=== PATIENT | female | born 1955 | race Two or more races ===

== ENCOUNTER 2018-01-24 11:59 | Inpatient (IN) | payer MEDICARE, OTHER ==
[~2018-01-24] VITALS: Ht 160 cm; Wt 71.3 kg
[2018-01-24 14:50] VITALS: BP 182/75
--- NOTE | 2018-01-24 15:31 | Cardiac Electrophysiology PN ---
Subjective Subjective [id number] Micah Young MD Jan 24, 2018 15:31
[2018-01-24] MEDS ORDERED: cloNIDine 0.2mg Tab ORAL PRN (19:15)
[2018-01-24 20:00] VITALS: BP 136/86
--- NOTE | 2018-01-24 20:30 | Consultation ---
DATE OF CONSULTATION: 01/24/2018 CARDIOLOGY CONSULTATION CONSULTING PHYSICIAN: Micah Young M.D. REFERRING PHYSICIAN: Darius Meyer M.D. REASON FOR CONSULTATION: Chest pain and shortness of breath. HISTORY OF PRESENT ILLNESS: The patient is a 62-year-old lady, who presented to [facility] for acute shortness of breath as well as hypertensive urgency. The patient underwent CT of the chest that showed no evidence of acute pulmonary embolism. The patient was noted to have a BNP of 1100. Troponin was mildly elevated at 0.06. Creatinine was also elevated at 7.15. EKG, however, showed normal sinus rhythm with normal electrocardiogram. REVIEW OF SYSTEMS: Review of systems was performed and was negative other than what was mentioned in the history of present illness. PAST MEDICAL HISTORY: Hypertension. FAMILY HISTORY: Noncontributory. SOCIAL HISTORY: She lives with the family, who are at the bedside. Does not smoke or drink alcohol. PHYSICAL EXAMINATION: VITAL SIGNS: Blood pressure 130/80, pulse 80, respirations 18, and she is afebrile. HEAD AND NECK: No JVD. LUNGS: Clear. CARDIOVASCULAR: Regular S1 and S2 with no gallop or murmur. ABDOMEN: Soft. EXTREMITIES: No pitting edema. Her blood pressure at [place] was 250/101. LABORATORY AND DIAGNOSTIC DATA: Her labs show white count of 9.1, hemoglobin 11.9, hematocrit 36, and platelet count 260,000. Sodium 134, potassium 5.3, creatinine 7.15, and BUN 58. ASSESSMENT/PLAN: 1. Accelerated hypertension with blood pressure of more than 200. I will start the patient on Norvasc 10 mg daily as well as metoprolol 25 mg b.i.d. I will add p.r.n. clonidine to her medical regimen. 2. Chest pain. The patient's EKG is negative. Troponin is mildly elevated. It could be due to the patient's renal failure. Chest CT showed no evidence of pulmonary embolism. 3. Renal failure, duration is unknown. Creatinine is 7.15. Nephrology evaluation is pending as well as renal ultrasound. 4. Congestive heart failure exacerbation, likely due to volume overload. The patient may need hemodialysis. Thank you very much, Dr. Meyer, for allowing me to participate in the care of this patient. Please do not hesitate to contact me for any questions regarding my evaluation. Micah Young M.D. DR: XENA JOB#: [id number] CC:
[2018-01-24] MEDS ORDERED: Acetaminophen 650 MG SUPP RECTAL PRN ×2 (22:00)
[2018-01-24] MEDS ORDERED: Miralax 17gm pkt ORAL PRN (22:00)
[2018-01-24] MEDS ORDERED: Nitroglycerin Subl 0.4mg tab SL PRN (22:00)
--- NOTE | 2018-01-24 22:01 | History & Physical ---
History and Physical History & Physicial Job: [id number] Darius Meyer MD Jan 24, 2018 22:01
[2018-01-24] MEDS ORDERED: NOVOLIN 70100 UNIT/2 SQ ×2 (22:09)
[2018-01-24] MEDS ORDERED: CARDIZEM60 MG ORAL (22:09)
[2018-01-24] MEDS ORDERED: CLARITIN10 M2 ORAL (22:09)
[2018-01-24] MEDS ORDERED: CARVEDILOL6.25 MG ORAL (22:09)
[2018-01-24] MEDS ORDERED: VITAMIN B COMP1 EAC5 PO (22:09)
[2018-01-24] MEDS ORDERED: CALCIUM ACETAT667 M1 PO (22:09)
[2018-01-24] MEDS ORDERED: FOLIC ACID1 MG ORAL (22:09)
[2018-01-24] MEDS ORDERED: ASPIRIN81 MG ORAL (22:09)
[2018-01-24] MEDS ORDERED: FUROSEMIDE80 M1 ORAL (22:09)
[2018-01-24] MEDS ORDERED: SIMVASTATIN20 MG ORAL (22:09)
[2018-01-24] MEDS: dilTIAZem HCl 60mg tab ORAL SCH (22:57)
[2018-01-24] MEDS: Carvedilol 6.25mg Tab ORAL SCH (22:57)
[2018-01-25] VITALS: BP 114/50
[2018-01-25 04:00] VITALS: BP 132/60
--- NOTE | 2018-01-25 04:01 | History and Physical Report ---
DATE OF ADMISSION: 01/24/2018 CHIEF COMPLAINT: Shortness of breath. HISTORY OF PRESENT ILLNESS: This is a 62-year-old very delightful female with past medical history significant for end-stage renal disease on hemodialysis, status post left upper extremity AV fistula placement, hypertension, diabetes type 2, diabetic nephropathy, and diabetic retinopathy, who presented to the hospital to [facility] emergency room complained about shortness of breath. She missed her dialysis yesterday. She is a dialysis dependent Sunday, Sunday, and Sunday. She started having shortness of breath. The patient was noted to have BNP of 1100 and troponin was mildly elevated with 0.06 and subsequently, the patient was transferred to [facility] for further evaluation. Open arrival to [place], the patient was started treating for the acute congestive heart failure on chronic with fluid overload and emergent dialysis was started as per request by Dr. Joel Vásquez. PAST MEDICAL HISTORY/PAST SURGICAL HISTORY: As above. History of hypertension, end-stage renal disease on hemodialysis, Sunday, Sunday, and Sunday; diabetes type 2; diabetic nephropathy; diabetic retinopathy. The patient has a history of gallstone as well. ALLERGIES: No known drug allergies. MEDICATIONS: Please refer to medication reconciliation. The patient is dependent. FAMILY HISTORY: Noncontributory. SOCIAL HISTORY: The patient denies any smoking, alcohol, or drugs. Very supportive family is always at bedside. REVIEW OF SYSTEMS: Mostly as above. Complained of shortness of breath. Denies any chest pain. Denies any loss of consciousness. Denies any fall or head trauma. Denies any double vision. The patient has right eye opacity and blindness. Left eye has retinopathy. PHYSICAL EXAMINATION: VITAL SIGNS: Upon arrival to [place], the patient afebrile, blood pressure 130/80, pulse of 80, and respirations 18. GENERAL: The patient is awake, responsive, in no acute distress. HEAD AND NECK: Pupils are reactive to light. Extraocular movements are intact. EYES: Right eye has opacity was noted. NECK: Supple. No JVD. LUNGS: Good air entry. No wheezing or rales. Occasional crackles at bases. ABDOMEN: Soft, nondistended, and nontender. Mildly obese. EXTREMITIES: No cyanosis or clubbing. No pitting edema. Left upper extremity has AV fistula functional. NEUROLOGIC: Cranial nerves II through XII grossly intact. Motor is 5/5 in all extremities. Gait is not assessed due to the patient's status. LABORATORY AND DIAGNOSTIC DATA: On admission from [place], lipase is 34, D-dimer is 1029. ALT of 13 and AST of 19. The patient's glucose was 190. Troponin 0.06, BNP of 1103, and creatinine is 7.15. WBC of 9.1, hemoglobin 11, hematocrit 36, and platelet is 260. Sodium 134, potassium 5.3, chloride 95, bicarbonate 25, BUN 58, creatinine is 7.15, total bilirubin of 0.9. CT of the chest, no CT evidence of acute pulmonary embolism ____ as well as right and left main pulmonary artery and ____ arterial branch, bilateral lung patchy airspace with a ground-glass opacity, which may indicate underlying atelectasis or infection, thickening of the interlobular space of the lungs. Chest x-ray showed pulmonary edema. EKG, normal sinus rhythm, ventricular rate of 81, no ST elevation was noted. ASSESSMENT: 1. Shortness of breath, most likely secondary to fluid overload. 2. End-stage renal disease, on hemodialysis. 3. Hypertension. 4. 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 5. Morbid obesity. PLAN: Admit the patient to monitored unit. We follow up with Dr. Young from Cardiology as well as Dr. Dr. Joel Vásquez from Nephrology. Continue laboratory in the morning. Discussed with the son extensively at the bedside. Code status is Full Code. DVT prophylaxis, heparin subcutaneous. We will resume home medications actually with sliding scale. Darius Meyer M.D. DR: CARLOS JOB#: [id number] CC:
[2018-01-25] MEDS: dilTIAZem HCl 60mg tab ORAL SCH ×3 (05:51→22:45)
[2018-01-25] MEDS: NovoLOG Insulin Flexpen SUBQ SCH ×4 (05:52→21:00)
[2018-01-25 07:20] LABS: ANION GAP 7 mmol/L (5-15); BASOPHILS % (AUTO) 1.5 % (0.0-2.0); BLOOD UREA NITROGEN 37 mg/dL (7-18); CALCIUM 8.7 MG/DL (8.5-10.1); CARBON DIOXIDE 30 MMOL/L (21-32); CHLORIDE 99 MMOL/L (98-107); CHOLESTEROL 120 MG/DL (< 200); CREATININE 5.7 MG/DL (0.55-1.30); EOSINOPHILS % (AUTO) 2.1 % (0.0-3.0); HEMATOCRIT 34.3 % (37.0-47.0); HEMOGLOBIN 11.1 G/DL (12.0-16.0); LYMPHOCYTES % (AUTO) 23.9 % (20.0-45.0); MEAN CORPUSCULAR VOLUME 90 FL (80-99); MONOCYTES % (AUTO) 11.3 % (1.0-10.0); NEUTROPHILS % (AUTO) 61.3 % (45.0-75.0); PLATELET COUNT 227 K/UL (150-450); POTASSIUM 4.4 MMOL/L (3.5-5.1); RED BLOOD COUNT 3.82 M/UL (4.20-5.40); RED CELL DISTRIBUTION WIDTH 12.3 % (11.6-14.8); SODIUM 136 MMOL/L (136-145); WHITE BLOOD COUNT 8.1 K/UL (4.8-10.8)
[2018-01-25 07:47] LABS: PHOSPHORUS 5.3 MG/DL (2.5-4.9)
[2018-01-25 08:00] VITALS: BP 139/60
[2018-01-25] MEDS: Aspirin Baby 81mg ORAL SCH (09:53)
[2018-01-25] MEDS: Docusate 100mg cap ORAL SCH ×2 (09:53→22:43)
[2018-01-25] MEDS: Carvedilol 6.25mg Tab ORAL SCH ×2 (09:54→22:44)
[2018-01-25] MEDS: Heparin 5000 units/ml inj SUBQ SCH ×2 (09:56→22:51)
[2018-01-25 12:00] VITALS: BP 132/60
--- NOTE | 2018-01-25 12:13 | Consultation ---
Consult Note Assessment/Plan Renal consult dictated # [id number] Joel Vásquez MD Jan 25, 2018 12:13
--- NOTE | 2018-01-25 12:14 | Cardiac Electrophysiology PN ---
Assessment/Plan Assessment/Plan 1. Accelerated hypertension with blood pressure of more than 200. On Cardizem 60 q8hr and Coreg 6.25 bid. 2. Chest pain. The patient's EKG is negative. Troponin is mildly elevated. It could be due to the patient's renal failure. Chest CT showed no evidence of pulmonary embolism.EF 55% 3. Chronic Renal failure, Had 3 liters removed with HD yesterday 4. Congestive heart failure exacerbation EF 55% on HD\ 5. Low glucose DW RN Subjective Subjective Altered. In SR. BS is critically Low. Objective Last 24 Hour Vital Signs Date Time Temp Pulse Resp B/P (MAP) Pulse Ox O2 Delivery O2 Flow Rate FiO2 01/25/18 09:54 76 139/60 01/25/18 09:00 Nasal Cannula 2.0 01/25/18 08:00 99.1 76 18 139/60 (86) 97 01/25/18 08:00 65 01/25/18 05:51 70 132/60 01/25/18 04:00 97.9 65 18 132/60 (84) 98 01/25/18 04:00 65 01/25/18 00:00 98.0 70 20 114/50 (71) 98 01/24/18 22:57 76 142/65 01/24/18 22:57 76 142/65 01/24/18 21:00 Nasal Cannula 2.0 01/24/18 20:00 85 01/24/18 20:00 98.4 84 22 136/86 (103) 97 01/24/18 16:12 82 01/24/18 15:30 Nasal Cannula 2.0 01/24/18 14:50 97.9 20 182/75 (110) 96 Intake and Output 01/24/18 01/25/18 19:00 07:00 Intake Total 240 ml Output Total 6000 ml Balance -5760 ml Intake Oral 240 ml Output Hemodialysis UF 6000 ml # Voids 1 1 Laboratory Tests Test 01/25/18 06:25 White Blood Count 8.1 K/UL (4.8-10.8) Red Blood Count 3.82 M/UL (4.20-5.40) L Hemoglobin 11.1 G/DL (12.0-16.0) L Hematocrit 34.3 % (37.0-47.0) L Mean Corpuscular Volume 90 FL (80-99) Mean Corpuscular Hemoglobin 29.0 PG (27.0-31.0) Mean Corpuscular Hemoglobin Concent 32.3 G/DL (32.0-36.0) Red Cell Distribution Width 12.3 % (11.6-14.8) Platelet Count 227 K/UL (150-450) Mean Platelet Volume 6.9 FL (6.5-10.1) Neutrophils (%) (Auto) 61.3 % (45.0-75.0) Lymphocytes (%) (Auto) 23.9 % (20.0-45.0) Monocytes (%) (Auto) 11.3 % (1.0-10.0) H Eosinophils (%) (Auto) 2.1 % (0.0-3.0) Basophils (%) (Auto) 1.5 % (0.0-2.0) Sodium Level 136 MMOL/L (136-145) Potassium Level 4.4 MMOL/L (3.5-5.1) Chloride Level 99 MMOL/L (98-107) Carbon Dioxide Level 30 MMOL/L (21-32) Anion Gap 7 mmol/L (5-15) Blood Urea Nitrogen 37 mg/dL (7-18) H Creatinine 5.7 MG/DL (0.55-1.30) H Estimat Glomerular Filtration Rate 7.5 mL/min (>60) Glucose Level 128 MG/DL (74-106) H Calcium Level 8.7 MG/DL (8.5-10.1) Phosphorus Level 5.3 MG/DL (2.5-4.9) H Magnesium Level 1.9 MG/DL (1.8-2.4) Troponin I 0.261 ng/mL (0.000-0.056) Pro-B-Type Natriuretic Peptide 84012 pg/mL (0-125) H Cholesterol Level 120 MG/DL (< 200) Microbiology Date/Time Source Procedure Growth Status 01/24/18 19:07 Rectum Received Objective HEAD AND NECK: No JVD. LUNGS: Clear. CARDIOVASCULAR: Regular S1 and S2 with no gallop or murmur. ABDOMEN: Soft. EXTREMITIES: No pitting edema. Micah Young MD Jan 25, 2018 12:14
[2018-01-25] MEDS: Nephrovite tab (Rena-Vite) ORAL SCH (12:20)
[2018-01-25] MEDS ORDERED: Heparin Sod 1000 units/ml 10ml IV PRN (12:21)
--- NOTE | 2018-01-25 13:58 | Consultation ---
History of Present Illness General Date patient seen: Jan 25, 2018 Present Illness HPI 62-year-old female with past medical history significant for anxiety d/o, depression. end-stage renal disease on hemodialysis, status post left upper extremity AV fistula placement, hypertension, diabetes type 2, diabetic nephropathy, and diabetic retinopathy, who presented to the hospital to [facility]. the pt has anxiety and insomnia. Allergies: Coded Allergies: No Known Allergies (Unverified , 01/24/18) Medication History Scheduled Aspirin* (Aspirin*), 81 MG ORAL DAILY, (Reported) Carvedilol* (Carvedilol*), 6.25 MG ORAL EVERY 12 HOURS, (Reported) Diltiazem Hcl* (Cardizem*), 60 MG ORAL DAILY, (Reported) Folic Acid* (Folic Acid*), 1 MG ORAL DAILY, (Reported) Furosemide* (Lasix*), 80 MG ORAL DAILY, (Reported) Insulin NPH Hum/Reg Insulin Hm (Novolin 70-30 Flexpen), 18 UNIT SQ DAILY, ( Reported) Insulin NPH Hum/Reg Insulin Hm (Novolin 70-30 Flexpen), 10 UNIT SQ QHS, ( Reported) Loratadine (Claritin), 10 MG ORAL DAILY, (Reported) Simvastatin (Zocor), 20 MG ORAL BEDTIME, (Reported) Miscellaneous Medications Calcium Acetate (Calcium Acetate), 667 MG PO, (Reported) Vitamin B Complex (Vitamin B Complex), 1 EACH PO, (Reported) Patient History Limited by: medical condition History Provided By: Patient, PMD Healthcare decision maker N Resuscitation status Full Code Advanced Directive on File Past Medical/Surgical History Past Medical/Surgical History: (1) ESRD (end stage renal disease) on dialysis (2) Hypertension Review of Systems Psychiatric: Reports: anxiety, depressed feelings Physical Exam General Appearance: alert Neurologic: oriented x 3, responsive, depressed affect Last 24 Hour Vital Signs Date Time Temp Pulse Resp B/P (MAP) Pulse Ox O2 Delivery O2 Flow Rate FiO2 01/25/18 12:00 98.5 72 18 132/60 (84) 97 01/25/18 09:54 76 139/60 01/25/18 09:00 Nasal Cannula 2.0 01/25/18 08:00 99.1 76 18 139/60 (86) 97 01/25/18 08:00 65 12/14/18 05:51 70 132/60 12/14/18 04:00 97.9 65 18 132/60 (84) 98 01/25/18 04:00 65 01/25/18 00:00 98.0 70 20 114/50 (71) 98 01/24/18 22:57 76 142/65 01/24/18 22:57 76 142/65 01/24/18 21:00 Nasal Cannula 2.0 01/24/18 20:00 85 01/24/18 20:00 98.4 84 22 136/86 (103) 97 01/24/18 16:12 82 01/24/18 15:30 Nasal Cannula 2.0 01/24/18 14:50 97.9 20 182/75 (110) 96 Intake and Output 01/24/18 01/25/18 19:00 07:00 Intake Total 240 ml Output Total 6000 ml Balance -5760 ml Intake Oral 240 ml Output Hemodialysis UF 6000 ml # Voids 1 1 Laboratory Tests Test 01/25/18 06:25 01/25/18 12:20 White Blood Count 8.1 K/UL (4.8-10.8) Red Blood Count 3.82 M/UL (4.20-5.40) L Hemoglobin 11.1 G/DL (12.0-16.0) L Hematocrit 34.3 % (37.0-47.0) L Mean Corpuscular Volume 90 FL (80-99) Mean Corpuscular Hemoglobin 29.0 PG (27.0-31.0) Mean Corpuscular Hemoglobin Concent 32.3 G/DL (32.0-36.0) Red Cell Distribution Width 12.3 % (11.6-14.8) Platelet Count 227 K/UL (150-450) Mean Platelet Volume 6.9 FL (6.5-10.1) Neutrophils (%) (Auto) 61.3 % (45.0-75.0) Lymphocytes (%) (Auto) 23.9 % (20.0-45.0) Monocytes (%) (Auto) 11.3 % (1.0-10.0) H Eosinophils (%) (Auto) 2.1 % (0.0-3.0) Basophils (%) (Auto) 1.5 % (0.0-2.0) Sodium Level 136 MMOL/L (136-145) Potassium Level 4.4 MMOL/L (3.5-5.1) Chloride Level 99 MMOL/L (98-107) Carbon Dioxide Level 30 MMOL/L (21-32) Anion Gap 7 mmol/L (5-15) Blood Urea Nitrogen 37 mg/dL (7-18) H Creatinine 5.7 MG/DL (0.55-1.30) H Estimat Glomerular Filtration Rate 7.5 mL/min (>60) Glucose Level 128 MG/DL (74-106) H 226 MG/DL (74-106) H Calcium Level 8.7 MG/DL (8.5-10.1) Phosphorus Level 5.3 MG/DL (2.5-4.9) H Magnesium Level 1.9 MG/DL (1.8-2.4) Troponin I 0.261 ng/mL (0.000-0.056) Pro-B-Type Natriuretic Peptide 33744 pg/mL (0-125) H Cholesterol Level 120 MG/DL (< 200) Microbiology Date/Time Source Procedure Growth Status 01/24/18 19:07 Rectum Received Height (Feet): 5 Height (Inches): 3.00 Weight (Pounds): 160 Medications Current Medications Medications (Trade) Dose Ordered Sig/Jose Route PRN Reason Start Time Stop Time Status Last Admin Dose Admin Acetaminophen (Tylenol) 650 mg Q4H PRN ORAL Mild Pain (Pain Scale 1-3) 01/24/18 22:00 02/23/18 21:59 Acetaminophen (Tylenol) 650 mg Q4H PRN ORAL fever 01/24/18 22:00 02/23/18 21:59 Acetaminophen (Tylenol) 650 mg Q4H PRN RECTAL Mild Pain (Pain Scale 1-3) 01/24/18 22:00 02/23/18 21:59 Acetaminophen (Tylenol) 650 mg Q4H PRN RECTAL fever 01/24/18 22:00 02/23/18 21:59 Acetaminophen (Tylenol) 650 mg Q6H PRN ORAL Mild Pain/Temp > 100.5 01/24/18 21:30 02/23/18 21:29 01/25/18 05:56 Aspirin (ASA) 81 mg DAILY ORAL 01/25/18 09:00 02/24/18 08:59 01/25/18 09:53 Atorvastatin Calcium (Lipitor) 80 mg BEDTIME ORAL 01/25/18 21:00 02/24/18 20:59 Carvedilol (Coreg) 6.25 mg EVERY 12 HOURS ORAL 01/24/18 21:00 02/23/18 20:59 01/25/18 09:54 Clonidine HCl (Catapres tab) 0.2 mg Q2H PRN ORAL For High Blood Pressure 01/24/18 19:15 02/23/18 19:14 Dextrose (Dextrose 50%) 25 ml Q30M PRN IV Hypoglycemia 01/24/18 22:00 02/23/18 21:59 Dextrose (Dextrose 50%) 50 ml Q30M PRN IV Hypoglycemia 01/24/18 22:00 02/23/18 21:59 01/25/18 12:12 Diltiazem HCl (Cardizem) 60 mg EVERY 8 HOURS ORAL 01/24/18 22:00 02/23/18 21:59 01/25/18 05:51 Docusate Sodium (Colace) 100 mg EVERY 12 HOURS ORAL 01/25/18 09:00 02/24/18 08:59 01/25/18 09:53 Heparin Sodium (Porcine) (Heparin 5000 units/ml) 5,000 units EVERY 12 HOURS SUBQ 01/25/18 09:00 02/24/18 08:59 01/25/18 09:56 Heparin Sodium (Porcine) (Heparin Sod 1000 units/ml 10ml) 2,000 unit ONCE PRN IV DIALYSIS 01/25/18 12:21 01/26/18 23:59 Insulin Aspart (NovoLOG Mix 70/ 30) 15 units EVERY 12 HOURS SUBQ 01/25/18 09:00 02/24/18 08:59 01/25/18 09:55 Insulin Aspart (NovoLOG) BEFORE MEALS AND HS SUBQ 01/25/18 06:30 02/24/18 06:29 01/25/18 05:52 Nitroglycerin (Ntg) 0.4 mg Q5M PRN SL Prn Chest Pain 01/24/18 22:00 02/23/18 21:59 Ondansetron HCl (Zofran) 4 mg Q6H PRN IVP Nausea & Vomiting 01/24/18 22:00 02/23/18 21:59 Polyethylene Glycol (Miralax) 17 gm DAILYPRN PRN ORAL Constipation 01/24/18 22:00 02/23/18 21:59 Sodium Chloride 1,000 ml @ 500 mls/hr Q2H PRN IVLG sbp<90 during hd 01/25/18 12:20 01/26/18 23:59 Vitamin B Complex/ Vit C/Folic Acid (Nephrovite) 1 tab DAILY ORAL 01/25/18 12:20 02/24/18 12:19 Assessment/Plan Problem List: (1) anxiety d/o Status: stable Assessment/Plan Anxiety d/o ativan prn provided ro/Seth Ocampo MD Jan 25, 2018 13:58
[2018-01-25] MEDS ORDERED: LORazepam 1mg tab ORAL PRN (14:00)
--- NOTE | 2018-01-25 14:00 | Consultation ---
History of Present Illness General Date patient seen: Jan 25, 2018 Present Illness HPI 62-year-old female with past medical history of end-stage renal disease on hemodialysis, hypertension, diabetes type 2, diabetic nephropathy, and diabetic retinopathy, presented to [facility] emergency room with CC of shortness of breath. She missed her dialysis yesterday. The patient was noted to have BNP of 1100 and troponin was mildly elevated with 0.06. she was transferred to [facility] for further evaluation. Allergies: Coded Allergies: No Known Allergies (Unverified , 01/24/18) Medication History Scheduled Aspirin* (Aspirin*), 81 MG ORAL DAILY, (Reported) Carvedilol* (Carvedilol*), 6.25 MG ORAL EVERY 12 HOURS, (Reported) Diltiazem Hcl* (Cardizem*), 60 MG ORAL DAILY, (Reported) Folic Acid* (Folic Acid*), 1 MG ORAL DAILY, (Reported) Furosemide* (Lasix*), 80 MG ORAL DAILY, (Reported) Insulin NPH Hum/Reg Insulin Hm (Novolin 70-30 Flexpen), 18 UNIT SQ DAILY, ( Reported) Insulin NPH Hum/Reg Insulin Hm (Novolin 70-30 Flexpen), 10 UNIT SQ QHS, ( Reported) Loratadine (Claritin), 10 MG ORAL DAILY, (Reported) Simvastatin (Zocor), 20 MG ORAL BEDTIME, (Reported) Miscellaneous Medications Calcium Acetate (Calcium Acetate), 667 MG PO, (Reported) Vitamin B Complex (Vitamin B Complex), 1 EACH PO, (Reported) Patient History Healthcare decision maker N Resuscitation status Full Code Advanced Directive on File Past Medical/Surgical History Past Medical/Surgical History: (1) ESRD (end stage renal disease) on dialysis (2) Hypertension Review of Systems All Other Systems: negative except mentioned in HPI Physical Exam General Appearance: WD/WN Lines, tubes and drains: peripheral, central line HEENT: normocephalic, atraumatic Neck: non-tender, supple Respiratory/Chest: chest wall non-tender, no respiratory distress Cardiovascular/Chest: normal peripheral pulses Abdomen: normal bowel sounds Last 24 Hour Vital Signs Date Time Temp Pulse Resp B/P (MAP) Pulse Ox O2 Delivery O2 Flow Rate FiO2 01/25/18 12:00 98.5 72 18 132/60 (84) 97 01/25/18 09:54 76 139/60 12/14/18 09:00 Nasal Cannula 2.0 01/25/18 08:00 99.1 76 18 139/60 (86) 97 01/25/18 08:00 65 01/25/18 05:51 70 132/60 01/25/18 04:00 97.9 65 18 132/60 (84) 98 01/25/18 04:00 65 01/25/18 00:00 98.0 70 20 114/50 (71) 98 01/24/18 22:57 76 142/65 01/24/18 22:57 76 142/65 01/24/18 21:00 Nasal Cannula 2.0 01/24/18 20:00 85 01/24/18 20:00 98.4 84 22 136/86 (103) 97 01/24/18 16:12 82 01/24/18 15:30 Nasal Cannula 2.0 01/24/18 14:50 97.9 20 182/75 (110) 96 Intake and Output 01/24/18 01/25/18 19:00 07:00 Intake Total 240 ml Output Total 6000 ml Balance -5760 ml Intake Oral 240 ml Output Hemodialysis UF 6000 ml # Voids 1 1 Laboratory Tests Test 01/25/18 06:25 01/25/18 12:20 White Blood Count 8.1 K/UL (4.8-10.8) Red Blood Count 3.82 M/UL (4.20-5.40) L Hemoglobin 11.1 G/DL (12.0-16.0) L Hematocrit 34.3 % (37.0-47.0) L Mean Corpuscular Volume 90 FL (80-99) Mean Corpuscular Hemoglobin 29.0 PG (27.0-31.0) Mean Corpuscular Hemoglobin Concent 32.3 G/DL (32.0-36.0) Red Cell Distribution Width 12.3 % (11.6-14.8) Platelet Count 227 K/UL (150-450) Mean Platelet Volume 6.9 FL (6.5-10.1) Neutrophils (%) (Auto) 61.3 % (45.0-75.0) Lymphocytes (%) (Auto) 23.9 % (20.0-45.0) Monocytes (%) (Auto) 11.3 % (1.0-10.0) H Eosinophils (%) (Auto) 2.1 % (0.0-3.0) Basophils (%) (Auto) 1.5 % (0.0-2.0) Sodium Level 136 MMOL/L (136-145) Potassium Level 4.4 MMOL/L (3.5-5.1) Chloride Level 99 MMOL/L (98-107) Carbon Dioxide Level 30 MMOL/L (21-32) Anion Gap 7 mmol/L (5-15) Blood Urea Nitrogen 37 mg/dL (7-18) H Creatinine 5.7 MG/DL (0.55-1.30) H Estimat Glomerular Filtration Rate 7.5 mL/min (>60) Glucose Level 128 MG/DL (74-106) H 226 MG/DL (74-106) H Calcium Level 8.7 MG/DL (8.5-10.1) Phosphorus Level 5.3 MG/DL (2.5-4.9) H Magnesium Level 1.9 MG/DL (1.8-2.4) Troponin I 0.261 ng/mL (0.000-0.056) Pro-B-Type Natriuretic Peptide 82385 pg/mL (0-125) H Cholesterol Level 120 MG/DL (< 200) Microbiology Date/Time Source Procedure Growth Status 01/24/18 19:07 Rectum Received Height (Feet): 5 Height (Inches): 3.00 Weight (Pounds): 160 Medications Current Medications Medications (Trade) Dose Ordered Sig/Jose Route PRN Reason Start Time Stop Time Status Last Admin Dose Admin Acetaminophen (Tylenol) 650 mg Q4H PRN ORAL Mild Pain (Pain Scale 1-3) 01/24/18 22:00 02/23/18 21:59 Acetaminophen (Tylenol) 650 mg Q4H PRN ORAL fever 01/24/18 22:00 02/23/18 21:59 Acetaminophen (Tylenol) 650 mg Q4H PRN RECTAL Mild Pain (Pain Scale 1-3) 01/24/18 22:00 02/23/18 21:59 Acetaminophen (Tylenol) 650 mg Q4H PRN RECTAL fever 01/24/18 22:00 02/23/18 21:59 Acetaminophen (Tylenol) 650 mg Q6H PRN ORAL Mild Pain/Temp > 100.5 01/24/18:30 02/23/18 21:29 01/25/18 05:56 Aspirin (ASA) 81 mg DAILY ORAL 01/25/18 09:00 02/24/18 08:59 01/25/18 09:53 Atorvastatin Calcium (Lipitor) 80 mg BEDTIME ORAL 01/25/18 21:00 02/24/18 20:59 Carvedilol (Coreg) 6.25 mg EVERY 12 HOURS ORAL 01/24/18 21:00 02/23/18 20:59 01/25/18 09:54 Clonidine HCl (Catapres tab) 0.2 mg Q2H PRN ORAL For High Blood Pressure 01/24/18 19:15 02/23/18 19:14 Dextrose (Dextrose 50%) 25 ml Q30M PRN IV Hypoglycemia 01/24/18 22:00 02/23/18 21:59 Dextrose (Dextrose 50%) 50 ml Q30M PRN IV Hypoglycemia 01/24/18 22:00 02/23/18 21:59 01/25/18 12:12 Diltiazem HCl (Cardizem) 60 mg EVERY 8 HOURS ORAL 01/24/18 22:00 02/23/18 21:59 01/25/18 05:51 Docusate Sodium (Colace) 100 mg EVERY 12 HOURS ORAL 01/25/18 09:00 02/24/18 08:59 01/25/18 09:53 Heparin Sodium (Porcine) (Heparin 5000 units/ml) 5,000 units EVERY 12 HOURS SUBQ 01/25/18 09:00 02/24/18 08:59 01/25/18 09:56 Heparin Sodium (Porcine) (Heparin Sod 1000 units/ml 10ml) 2,000 unit ONCE PRN IV DIALYSIS 01/25/18 12:21 01/26/18 23:59 Insulin Aspart (NovoLOG Mix 70/ 30) 15 units EVERY 12 HOURS SUBQ 01/25/18 09:00 02/24/18 08:59 01/25/18 09:55 Insulin Aspart (NovoLOG) BEFORE MEALS AND HS SUBQ 01/25/18 06:30 02/24/18 06:29 01/25/18 05:52 Nitroglycerin (Ntg) 0.4 mg Q5M PRN SL Prn Chest Pain 01/24/18 22:00 02/23/18 21:59 Ondansetron HCl (Zofran) 4 mg Q6H PRN IVP Nausea & Vomiting 01/24/18 22:00 02/23/18 21:59 Polyethylene Glycol (Miralax) 17 gm DAILYPRN PRN ORAL Constipation 01/24/18 22:00 02/23/18 21:59 Sodium Chloride 1,000 ml @ 500 mls/hr Q2H PRN IVLG sbp<90 during hd 01/25/18 12:20 01/26/18 23:59 Vitamin B Complex/ Vit C/Folic Acid (Nephrovite) 1 tab DAILY ORAL 01/25/18 12:20 02/24/18 12:19 Assessment/Plan Problem List: (1) Acute respiratory failure ICD Codes: J96.00 - Acute respiratory failure, unspecified whether with hypoxia or hypercapnia SNOMED: 03627711 (2) Pulmonary edema ICD Codes: J81.1 - Chronic pulmonary edema SNOMED: 07314031 (3) Hypertension ICD Codes: I10 - Essential (primary) hypertension SNOMED: 00586797 (4) ESRD (end stage renal disease) on dialysis ICD Codes: N18.6 - End stage renal disease; Z99.2 - Dependence on renal dialysis SNOMED: 177812764 Assessment/Plan CXR dialysis by nephrology check electrolytes diabetic diet and sliding scale fluid restriction dvt prophylaxis symptomatic treatment. Scotty Cohen MD Jan 25, 2018 14:00
--- NOTE | 2018-01-25 14:42 | Diagnostic Imaging Report ---
Indication: Dyspnea Comparison: None A single view chest radiograph was obtained. Findings: Some vascular prominence demonstrated bilaterally. The hazy opacities at the lung bases likely atelectasis. Lung volumes are low. Heart is borderline enlarged. Bones are osteopenic. Left axillary region stent noted. IMPRESSION: Mild pulmonary vascular congestion. Correlate clinically
[2018-01-25 15:35] LABS: EOSINOPHILS % (AUTO) 2.4 % (0.0-3.0); HEMATOCRIT 34.8 % (37.0-47.0); HEMOGLOBIN 11.4 G/DL (12.0-16.0); MEAN CORPUSCULAR VOLUME 89 FL (80-99); MONOCYTES % (AUTO) 9.9 % (1.0-10.0); NEUTROPHILS % (AUTO) 66.7 % (45.0-75.0); PLATELET COUNT 242 K/UL (150-450); RED BLOOD COUNT 3.89 M/UL (4.20-5.40); RED CELL DISTRIBUTION WIDTH 12.1 % (11.6-14.8)
--- NOTE | 2018-01-25 15:38 | Cardiology Report ---
APPROVED REPORT EXAM: Two-dimensional and M-mode echocardiogram with Doppler and color Doppler. INDICATION Congestive Heart Failure M-Mode DIMENSIONS IVSd1.1 (0.7-1.1cm)Left Atrium (MM)4.6 (1.6-4.0cm) LVDd5.2 (3.5-5.6cm)Aortic Root2.9 (2.0-3.7cm) PWd1.9 (0.7-1.1cm)Aortic Cusp Exc.1.3 (1.5-2.0cm) LVDs3.8 (2.5-4.0cm) PWs1.3 cm Normal left ventricular chamber size, systolic function and wall motion. Left ventricular ejection fraction estimated to be 50-55 %. Mild left ventricular hypertrophy by 2-D. Anterior Echo-free space, may be due to pericardial fat or effusion. All other cardiac chamber sizes are within normal limits. Echogenic material noted in Right Ventricle may be calcification of Moderate Band. Aortic valve moderate calcification with decreased cusp excursion c/w mild aortic stenosis. Heavily thickened mitral valve leaflets with mildly reduced excursion. Echogenic material noted on posterior Mitral leaflet may be calcification. Mitral annulus and aortic root calcification. Pulmonic valve not well visualized. Normal tricuspid valve structure. IVC at normal size with physiologic collapse. A color flow and spectral Doppler study was performed and revealed: Peak aortic valve gradient of 21 mm Hg and a mean of 12 mmHg. Aortic valve area 1.5 cm2 calculated by continuity equation. Mild mitral regurgitation. Peak mitral valve gradient of 15 mm Hg and a mean of 5 mmHg. Mitral diastolic velocities suggest reduced left ventricular relaxation c/w mild LV diastolic dysfunction (Grade I). Trace to mild tricuspid regurgitation. Tricuspid systolic velocities suggests peak right ventricular systolic pressure of 33 mmHg. Trace pulmonic regurgitation present.
[2018-01-25 16:00] VITALS: BP 147/68
[2018-01-25 16:01] LABS: ANION GAP 8 mmol/L (5-15); BLOOD UREA NITROGEN 42 mg/dL (7-18); CALCIUM 8.7 MG/DL (8.5-10.1); CARBON DIOXIDE 29 MMOL/L (21-32); CHLORIDE 98 MMOL/L (98-107); CREATININE 6.2 MG/DL (0.55-1.30); POTASSIUM 4.8 MMOL/L (3.5-5.1); SODIUM 135 MMOL/L (136-145)
--- NOTE | 2018-01-25 16:44 | Internal Med Progress Note ---
Subjective Physician Name Darius Meyer Attending Physician Darius Meyer MD Current Medications Medications (Trade) Dose Ordered Sig/Jose Route PRN Reason Start Time Stop Time Status Last Admin Dose Admin Acetaminophen (Tylenol) 650 mg Q4H PRN ORAL Mild Pain (Pain Scale 1-3) 01/24/18 22:00 02/23/18 21:59 Acetaminophen (Tylenol) 650 mg Q4H PRN ORAL fever 01/24/18 22:00 02/23/18 21:59 Acetaminophen (Tylenol) 650 mg Q4H PRN RECTAL Mild Pain (Pain Scale 1-3) 01/24/18 22:00 02/23/18 21:59 Acetaminophen (Tylenol) 650 mg Q4H PRN RECTAL fever 01/24/18 22:00 02/23/18 21:59 Acetaminophen (Tylenol) 650 mg Q6H PRN ORAL Mild Pain/Temp > 100.5 01/24/18 21:30 02/23/18 21:29 01/25/18 05:56 Aspirin (ASA) 81 mg DAILY ORAL 01/25/18 09:00 02/24/18 08:59 01/25/18 09:53 Atorvastatin Calcium (Lipitor) 80 mg BEDTIME ORAL 01/25/18 21:00 02/24/18 20:59 Carvedilol (Coreg) 6.25 mg EVERY 12 HOURS ORAL 01/24/18 21:00 02/23/18 20:59 01/25/18 09:54 Clonidine HCl (Catapres tab) 0.2 mg Q2H PRN ORAL For High Blood Pressure 01/24/18 19:15 02/23/18 19:14 Dextrose (Dextrose 50%) 25 ml Q30M PRN IV Hypoglycemia 01/24/18 22:00 02/23/18 21:59 Dextrose (Dextrose 50%) 50 ml Q30M PRN IV Hypoglycemia 01/24/18 22:00 02/23/18 21:59 01/25/18 12:12 Diltiazem HCl (Cardizem) 60 mg EVERY 8 HOURS ORAL 01/24/18 22:00 02/23/18 21:59 01/25/18 14:41 Docusate Sodium (Colace) 100 mg EVERY 12 HOURS ORAL 01/25/18 09:00 02/24/18 08:59 01/25/18 09:53 Heparin Sodium (Porcine) (Heparin 5000 units/ml) 5,000 units EVERY 12 HOURS SUBQ 01/25/18 09:00 02/24/18 08:59 01/25/18 09:56 Heparin Sodium (Porcine) (Heparin Sod 1000 units/ml 10ml) 2,000 unit ONCE PRN IV DIALYSIS 01/25/18 12:21 01/26/18 23:59 Insulin Aspart (NovoLOG) BEFORE MEALS AND HS SUBQ 01/25/18 06:30 02/24/18 06:29 01/25/18 05:52 Lorazepam (Ativan) 2 mg Q6H PRN ORAL For Anxiety 01/25/18 14:00 02/01/18 13:59 Nitroglycerin (Ntg) 0.4 mg Q5M PRN SL Prn Chest Pain 01/24/18 22:00 02/23/18 21:59 Ondansetron HCl (Zofran) 4 mg Q6H PRN IVP Nausea & Vomiting 01/24/18 22:00 02/23/18 21:59 Polyethylene Glycol (Miralax) 17 gm DAILYPRN PRN ORAL Constipation 01/24/18 22:00 02/23/18 21:59 Sodium Chloride 1,000 ml @ 500 mls/hr Q2H PRN IVLG sbp<90 during hd 01/25/18 12:20 01/26/18 23:59 Vitamin B Complex/ Vit C/Folic Acid (Nephrovite) 1 tab DAILY ORAL 01/25/18 12:20 02/24/18 12:19 Allergies: Coded Allergies: No Known Allergies (Unverified , 01/24/18) Subjective awake, alert, responsive, ambulation in Rm with son, No CP, Less SOB, Dialysis last night remove 3 liter Objective Last Vital Signs Date Time Temp Pulse Resp B/P (MAP) Pulse Ox O2 Delivery O2 Flow Rate FiO2 01/25/18 14:41 60 151/70 01/25/18 12:00 98.5 18 97 01/25/18 09:00 Nasal Cannula 2.0 Laboratory Tests Test 01/25/18 06:25 01/25/18 12:20 01/25/18 15:20 White Blood Count 8.1 K/UL (4.8-10.8) 8.0 K/UL (4.8-10.8) Red Blood Count 3.82 M/UL (4.20-5.40) L 3.89 M/UL (4.20-5.40) L Hemoglobin 11.1 G/DL (12.0-16.0) L 11.4 G/DL (12.0-16.0) L Hematocrit 34.3 % (37.0-47.0) L 34.8 % (37.0-47.0) L Mean Corpuscular Volume 90 FL (80-99) 89 FL (80-99) Mean Corpuscular Hemoglobin 29.0 PG (27.0-31.0) 29.3 PG (27.0-31.0) Mean Corpuscular Hemoglobin Concent 32.3 G/DL (32.0-36.0) 32.8 G/DL (32.0-36.0) Red Cell Distribution Width 12.3 % (11.6-14.8) 12.1 % (11.6-14.8) Platelet Count 227 K/UL (150-450) 242 K/UL (150-450) Mean Platelet Volume 6.9 FL (6.5-10.1) 7.1 FL (6.5-10.1) Neutrophils (%) (Auto) 61.3 % (45.0-75.0) 66.7 % (45.0-75.0) Lymphocytes (%) (Auto) 23.9 % (20.0-45.0) 20.0 % (20.0-45.0) Monocytes (%) (Auto) 11.3 % (1.0-10.0) H 9.9 % (1.0-10.0) Eosinophils (%) (Auto) 2.1 % (0.0-3.0) 2.4 % (0.0-3.0) Basophils (%) (Auto) 1.5 % (0.0-2.0) 1.0 % (0.0-2.0) Sodium Level 136 MMOL/L (136-145) 135 MMOL/L (136-145) L Potassium Level 4.4 MMOL/L (3.5-5.1) 4.8 MMOL/L (3.5-5.1) Chloride Level 99 MMOL/L (98-107) 98 MMOL/L (98-107) Carbon Dioxide Level 30 MMOL/L (21-32) 29 MMOL/L (21-32) Anion Gap 7 mmol/L (5-15) 8 mmol/L (5-15) Blood Urea Nitrogen 37 mg/dL (7-18) H 42 mg/dL (7-18) H Creatinine 5.7 MG/DL (0.55-1.30) H 6.2 MG/DL (0.55-1.30) H Estimat Glomerular Filtration Rate 7.5 mL/min (>60) 6.8 mL/min (>60) Glucose Level 128 MG/DL (74-106) H 226 MG/DL (74-106) H 142 MG/DL (74-106) H Calcium Level 8.7 MG/DL (8.5-10.1) 8.7 MG/DL (8.5-10.1) Phosphorus Level 5.3 MG/DL (2.5-4.9) H Magnesium Level 1.9 MG/DL (1.8-2.4) Troponin I 0.261 ng/mL (0.000-0.056) Pro-B-Type Natriuretic Peptide 36092 pg/mL (0-125) H Cholesterol Level 120 MG/DL (< 200) Microbiology Date/Time Source Procedure Growth Status 01/24/18 19:07 Rectum Received Intake and Output 01/24/18 01/25/18 19:00 07:00 Intake Total 240 ml Output Total 6000 ml Balance -5760 ml Intake Oral 240 ml Output Hemodialysis UF 6000 ml # Voids 1 1 Objective GENERAL: The patient is awake, responsive, in no acute distress. HEAD AND NECK: Pupils are reactive to light. Extraocular movements are intact. Right eye has opacity was noted. NECK: Supple. No JVD. LUNGS: Good air entry. No wheezing or rales. No crackles at bases. ABDOMEN: Soft, nondistended, and nontender. Mildly obese. EXTREMITIES: No cyanosis or clubbing. No pitting edema. Left upper extremity has AV fistula functional. NEUROLOGIC: Cranial nerves II through XII grossly intact. Motor is 5/5 in all extremities. Gait intact. Assessment/Plan Assessment/Plan ASSESSMENT: 1. Shortness of breath, most likely secondary to fluid overload. 2. End-stage renal disease, on hemodialysis. 3. Hypertension. 4. 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 5. Morbid obesity. 6. Acute on chronic CHF with Diastolic dysfunction. PLAN: On monitored unit. F/U with Dr. Young from Cardiology as well as Dr. Dr. Joel Vásquez from Nephrology. monitor laboratory in the morning. Discussed with the son extensively at the bedside. Code status is Full Code. DVT prophylaxis, heparin subcutaneous. Insulin sliding scale. Dialysis in AM. DC planning soon. Darius Meeyr M.D. 2D Echo: Normal left ventricular chamber size, systolic function and wall motion. Left ventricular ejection fraction estimated to be 50-55 %. Mild left ventricular hypertrophy by 2-D. Anterior Echo-free space, may be due to pericardial fat or effusion. All other cardiac chamber sizes are within normal limits. Echogenic material noted in Right Ventricle may be calcification of Moderate Band. Aortic valve moderate calcification with decreased cusp excursion c/w mild aortic stenosis. Heavily thickened mitral valve leaflets with mildly reduced excursion. Echogenic material noted on posterior Mitral leaflet may be calcification. Mitral annulus and aortic root calcification. Pulmonic valve not well visualized. Normal tricuspid valve structure. IVC at normal size with physiologic collapse. A color flow and spectral Doppler study was performed and revealed: Peak aortic valve gradient of 21 mm Hg and a mean of 12 mmHg. Aortic valve area 1.5 cm2 calculated by continuity equation. Mild mitral regurgitation. Peak mitral valve gradient of 15 mm Hg and a mean of 5 mmHg. Mitral diastolic velocities suggest reduced left ventricular relaxation c/w mild LV diastolic dysfunction (Grade I). Trace to mild tricuspid regurgitation. Tricuspid systolic velocities suggests peak right ventricular systolic pressure of 33 mmHg. Trace pulmonic regurgitation present. Darius Meyer MD Jan 25, 2018 16:44
[2018-01-25 20:00] VITALS: BP 150/59
--- NOTE | 2018-01-25 21:45 | Consultation ---
DATE OF CONSULTATION: 01/25/2018 NEPHROLOGY CONSULTATION CONSULTING PHYSICIAN: Joel Vásquez M.D. REFERRING PHYSICIAN: Darius Meyer M.D. REASON FOR CONSULTATION: End-stage renal disease, requiring hemodialysis. HISTORY OF PRESENT ILLNESS: This is a 62-year-old female, who has a history of end-stage renal disease. She tells me she has been on dialysis for about four years now, currently getting dialysis in the [facility], [address] The patient was transferred from [place]. Initially, she went there for shortness of breath. The patient usually gets dialysis every Sunday, Sunday, and Sunday but she missed her dialysis the day before admission and then she started getting short of breath. Once she was here at [place], I got a call that she would need urgent dialysis. This was ordered. The patient received dialysis overnight and she is feeling better now. PAST MEDICAL HISTORY: The patient has history of diabetes and end-stage renal disease as a result of her diabetes. She is also almost legally blind. She can only see shadows of people. She also has history of hypertension. She denies history of heart problems. MEDICATIONS: Reviewed in EMR. SOCIAL HISTORY: No history of smoking or alcohol abuse. ALLERGIES: No known drug allergies. REVIEW OF SYSTEMS: The patient still makes a fair amount of urine. PHYSICAL EXAMINATION: VITAL SIGNS: Blood pressure is 139/60, pulse 86, temperature 99.1, and respiratory rate is 18. HEENT: [place] conjunctivae. The patient has turbid cornea. NECK: Supple. LUNGS: Bibasilar crackles. HEART: S1 and S2 without murmurs or rubs. ABDOMEN: Soft and nontender. EXTREMITIES: No cyanosis or edema. The patient has a left upper arm fistula with good bruit. LABORATORY FINDINGS: The CBC shows a WBC of 8100, hematocrit is 34.3, hemoglobin is 11.1, and platelets 227,000. Chemistry panel shows serum sodium 136, potassium 4.4, chloride 99, BUN 77, creatinine 5.7, and glucose is 128. Phosphorus 5.3. ASSESSMENT: This is a 62-year-old female with history of end-stage renal disease as a result of diabetic nephropathy. She was admitted with shortness of breath and fluid overload. She is feeling better now after dialysis. Her blood pressure which was very high on admission has improved significantly after fluid removal. She has only mild anemia at this point. PLAN: The patient will be dialyzed again tomorrow and then she will be back on Sunday, Sunday, and Sunday schedule. We will continue current blood pressure medications, but she is on a combination diltiazem, Coreg, and clonidine. So, we have to make sure she does not get bradycardic. Dr. Young is following for Cardiology and watching that. I would also add Nephro-Mp 1 a day. Labs will be followed and further recommendations will be given. Thank you very much, Dr. Meyer, for this consultation. Joel Vásquez M.D. DR: ARAVIND JOB#: [id number] CC:
[2018-01-25] MEDS: Atorvastatin 80mg tab ORAL SCH (22:45)
[2018-01-26] VITALS: BP 126/56
[2018-01-26 04:00] VITALS: BP 169/69
[2018-01-26] MEDS: NovoLOG Insulin Flexpen SUBQ SCH ×4 (06:30→21:46)
[2018-01-26] MEDS: dilTIAZem HCl 60mg tab ORAL SCH ×3 (07:01→21:54)
--- NOTE | 2018-01-26 07:16 | Pulmonology Progress Note ---
Assessment/Plan Assessment/Plan ASSESSMENT SOB likely secondary to fluid overload CHF exacerbation secondary to volume overload Hypertensive urgency Diabetes mellitus type 2 with diabetic nephropathy and diabetic retinopathy Morbid obesity Elevated troponin (likely due to renal disease, as per cardio) End-stage renal disease PLAN of CARE tele cardio follows continue ASA ,statin , BB BP management with CCB and BB Nitro prn O2 titrate to keep pulse oximetry above 92% , pulmonary toilet prn CT chest - no PE HD as per nephro with close monitoring of cardio-renal parameters and electrolytes correct electrolytes prn DVT prophylaxis bowel regimen BS management with 70/30 insulin, and SSI prn bowel regimen supportive care case discussed and evaluated by supervising physician Subjective Allergies: Coded Allergies: No Known Allergies (Unverified , 01/24/18) Subjective denies chest pain, pulse ox stable on o2 via NC Objective Last 24 Hour Vital Signs Date Time Temp Pulse Resp B/P (MAP) Pulse Ox O2 Delivery O2 Flow Rate FiO2 01/26/18 07:01 71 169/69 01/26/18 04:00 98.9 71 21 169/69 (102) 97 01/26/18 00:00 64 01/26/18 00:00 98.6 74 17 126/56 (79) 97 01/25/18 22:45 89 150/59 01/25/18 22:44 89 150/59 01/25/18 21:00 Nasal Cannula 2.0 01/25/18 20:00 98.1 78 20 150/59 (89) 95 01/25/18 20:00 62 01/25/18 16:00 62 01/25/18 16:00 97.8 63 18 147/68 (94) 100 01/25/18 14:41 60 151/70 01/25/18 12:00 98.5 72 18 132/60 (84) 97 01/25/18 12:00 80 01/25/18 09:54 76 139/60 01/25/18 09:00 Nasal Cannula 2.0 01/25/18 08:00 99.1 76 18 139/60 (86) 97 01/25/18 08:00 65 Intake and Output 01/25/18 01/26/18 19:00 07:00 Intake Total 360 ml Balance 360 ml Intake Oral 360 ml # Voids 2 1 General Appearance: no acute distress HEENT: normocephalic, atraumatic, anicteric, mucous membranes moist Respiratory/Chest: lungs clear, no respiratory distress, no accessory muscle use Cardiovascular: normal rate - SR on tele, regular rhythm, other - LUE AV fistula +bruit/thrill Abdomen: normal bowel sounds, soft, non tender, non distended Extremities: no edema Neurologic/Psychiatric: no motor/sensory deficits, alert, oriented x 3, responsive Musculoskeletal: normal muscle bulk Microbiology Date/Time Source Procedure Growth Status 01/24/18 19:07 Nasal Nares MRSA Culture - Final NO METHICILLIN RESISTANT STAPH AUREUS... Complete 01/24/18 19:07 Rectum Received Laboratory Tests 01/25/18 12:20: Glucose Level 226H 01/25/18 15:20: Glucose Level 142H, White Blood Count 8.0, Red Blood Count 3.89L, Hemoglobin 11.4L, Hematocrit 34.8L, Mean Corpuscular Volume 89, Mean Corpuscular Hemoglobin 29.3, Mean Corpuscular Hemoglobin Concent 32.8, Red Cell Distribution Width 12.1, Platelet Count 242, Mean Platelet Volume 7.1, Neutrophils (%) (Auto) 66.7, Lymphocytes (%) (Auto) 20.0, Monocytes (%) (Auto) 9.9, Eosinophils (%) (Auto) 2.4, Basophils (%) (Auto) 1.0, Sodium Level 135L, Potassium Level 4.8, Chloride Level 98, Carbon Dioxide Level 29, Anion Gap 8, Blood Urea Nitrogen 42H, Creatinine 6.2H, Estimat Glomerular Filtration Rate 6.8 , Calcium Level 8.7 Current Medications Medications (Trade) Dose Ordered Sig/Jose Route PRN Reason Start Time Stop Time Status Last Admin Dose Admin Acetaminophen (Tylenol) 650 mg Q4H PRN ORAL Mild Pain (Pain Scale 1-3) 01/24/18 22:00 02/23/18 21:59 Acetaminophen (Tylenol) 650 mg Q4H PRN ORAL fever 01/24/18 22:00 02/23/18 21:59 Acetaminophen (Tylenol) 650 mg Q4H PRN RECTAL Mild Pain (Pain Scale 1-3) 01/24/18 22:00 02/23/18 21:59 Acetaminophen (Tylenol) 650 mg Q4H PRN RECTAL fever 01/24/18 22:00 02/23/18 21:59 Acetaminophen (Tylenol) 650 mg Q6H PRN ORAL Mild Pain/Temp > 100.5 01/24/18 21:30 02/23/18 21:29 01/26/18 04:24 Aspirin (ASA) 81 mg DAILY ORAL 01/25/18 09:00 02/24/18 08:59 01/25/18 09:53 Atorvastatin Calcium (Lipitor) 80 mg BEDTIME ORAL 01/25/18 21:00 02/24/18 20:59 01/25/18 22:45 Carvedilol (Coreg) 6.25 mg EVERY 12 HOURS ORAL 01/24/18 21:00 02/23/18 20:59 01/25/18 22:44 Clonidine HCl (Catapres tab) 0.2 mg Q2H PRN ORAL For High Blood Pressure 01/24/18 19:15 02/23/18 19:14 Dextrose (Dextrose 50%) 25 ml Q30M PRN IV Hypoglycemia 01/24/18 22:00 02/23/18 21:59 Dextrose (Dextrose 50%) 50 ml Q30M PRN IV Hypoglycemia 01/24/18 22:00 02/23/18 21:59 01/25/18 12:12 Diltiazem HCl (Cardizem) 60 mg EVERY 8 HOURS ORAL 01/24/18 22:00 02/23/18 21:59 01/26/18 07:01 Docusate Sodium (Colace) 100 mg EVERY 12 HOURS ORAL 01/25/18 09:00 02/24/18 08:59 01/25/18 22:43 Heparin Sodium (Porcine) (Heparin 5000 units/ml) 5,000 units EVERY 12 HOURS SUBQ 01/25/18 09:00 02/24/18 08:59 01/25/18 22:51 Heparin Sodium (Porcine) (Heparin Sod 1000 units/ml 10ml) 2,000 unit ONCE PRN IV DIALYSIS 01/25/18 12:21 01/26/18 23:59 Insulin Aspart (NovoLOG) BEFORE MEALS AND HS SUBQ 01/25/18 06:30 02/24/18 06:29 01/25/18 05:52 Lorazepam (Ativan) 2 mg Q6H PRN ORAL For Anxiety 01/25/18 14:00 02/01/18 13:59 Nitroglycerin (Ntg) 0.4 mg Q5M PRN SL Prn Chest Pain 01/24/18 22:00 02/23/18 21:59 Ondansetron HCl (Zofran) 4 mg Q6H PRN IVP Nausea & Vomiting 01/24/18 22:00 02/23/18 21:59 Polyethylene Glycol (Miralax) 17 gm DAILYPRN PRN ORAL Constipation 01/24/18 22:00 02/23/18 21:59 Sodium Chloride 1,000 ml @ 500 mls/hr Q2H PRN IVLG sbp<90 during hd 01/25/18 12:20 01/26/18 23:59 Vitamin B Complex/ Vit C/Folic Acid (Nephrovite) 1 tab DAILY ORAL 01/25/18 12:20 02/24/18 12:19 Ingrid Tello NP Jan 26, 2018 07:16
[2018-01-26 08:00] VITALS: BP 150/63
[2018-01-26 08:11] LABS: ANION GAP 10 mmol/L (5-15); BLOOD UREA NITROGEN 60 mg/dL (7-18); CALCIUM 8.3 MG/DL (8.5-10.1); CARBON DIOXIDE 26 MMOL/L (21-32); CHLORIDE 98 MMOL/L (98-107); CREATININE 7.7 MG/DL (0.55-1.30); POTASSIUM 5.2 MMOL/L (3.5-5.1); SODIUM 134 MMOL/L (136-145)
[2018-01-26 08:20] LABS: BASOPHILS % (AUTO) 1.3 % (0.0-2.0); EOSINOPHILS % (AUTO) 2.9 % (0.0-3.0); HEMATOCRIT 33.8 % (37.0-47.0); HEMOGLOBIN 10.8 G/DL (12.0-16.0); MEAN CORPUSCULAR VOLUME 90 FL (80-99); MONOCYTES % (AUTO) 11.5 % (1.0-10.0); NEUTROPHILS % (AUTO) 60.4 % (45.0-75.0); PLATELET COUNT 224 K/UL (150-450); RED BLOOD COUNT 3.78 M/UL (4.20-5.40); WHITE BLOOD COUNT 7.9 K/UL (4.8-10.8)
[2018-01-26] MEDS: Aspirin Baby 81mg ORAL SCH (08:28)
[2018-01-26] MEDS: Docusate 100mg cap ORAL SCH ×2 (08:28→20:52)
[2018-01-26] MEDS: Nephrovite tab (Rena-Vite) ORAL SCH (08:28)
[2018-01-26] MEDS: Carvedilol 6.25mg Tab ORAL SCH ×2 (08:28→20:52)
[2018-01-26] MEDS: Heparin 5000 units/ml inj SUBQ SCH ×2 (08:29→20:54)
[2018-01-26] MEDS ORDERED: Albuterol/Ipratropium 3ml neb HHN PRN (10:45)
[2018-01-26 12:00] VITALS: BP 141/62
--- NOTE | 2018-01-26 15:36 | Internal Med Progress Note ---
Subjective Physician Name Darius Meyer Attending Physician Darius Meyer MD Current Medications Medications (Trade) Dose Ordered Sig/Jose Route PRN Reason Start Time Stop Time Status Last Admin Dose Admin Acetaminophen (Tylenol) 650 mg Q4H PRN ORAL Mild Pain (Pain Scale 1-3) 01/24/18 22:00 02/23/18 21:59 Acetaminophen (Tylenol) 650 mg Q4H PRN ORAL fever 01/24/18 22:00 02/23/18 21:59 Acetaminophen (Tylenol) 650 mg Q4H PRN RECTAL Mild Pain (Pain Scale 1-3) 01/24/18 22:00 02/23/18 21:59 Acetaminophen (Tylenol) 650 mg Q4H PRN RECTAL fever 01/24/18 22:00 02/23/18 21:59 Acetaminophen (Tylenol) 650 mg Q6H PRN ORAL Mild Pain/Temp > 100.5 01/24/18 21:30 02/23/18 21:29 01/26/18 04:24 Albuterol/ Ipratropium (Albuterol/ Ipratropium) 3 ml Q4H PRN HHN Shortness of Breath 01/26/18 10:45 01/31/18 10:44 Aspirin (ASA) 81 mg DAILY ORAL 01/25/18 09:00 02/24/18 08:59 01/26/18 08:28 Atorvastatin Calcium (Lipitor) 80 mg BEDTIME ORAL 01/25/18 21:00 02/24/18 20:59 01/25/18 22:45 Carvedilol (Coreg) 6.25 mg EVERY 12 HOURS ORAL 01/24/18 21:00 02/23/18 20:59 01/25/18 22:44 Clonidine HCl (Catapres tab) 0.2 mg Q2H PRN ORAL For High Blood Pressure 01/24/18 19:15 02/23/18 19:14 Dextrose (Dextrose 50%) 25 ml Q30M PRN IV Hypoglycemia 01/24/18 22:00 02/23/18 21:59 Dextrose (Dextrose 50%) 50 ml Q30M PRN IV Hypoglycemia 01/24/18 22:00 02/23/18 21:59 01/25/18 12:12 Diltiazem HCl (Cardizem) 60 mg EVERY 8 HOURS ORAL 01/24/18 22:00 02/23/18 21:59 01/26/18 07:01 Docusate Sodium (Colace) 100 mg EVERY 12 HOURS ORAL 01/25/18 09:00 02/24/18 08:59 01/26/18 08:28 Heparin Sodium (Porcine) (Heparin 5000 units/ml) 5,000 units EVERY 12 HOURS SUBQ 01/25/18 09:00 02/24/18 08:59 01/26/18 08:29 Heparin Sodium (Porcine) (Heparin Sod 1000 units/ml 10ml) 2,000 unit ONCE PRN IV DIALYSIS 01/25/18 12:21 01/26/18 23:59 Insulin Aspart (NovoLOG) BEFORE MEALS AND HS SUBQ 01/25/18 06:30 02/24/18 06:29 01/26/18 12:18 Lorazepam (Ativan) 2 mg Q6H PRN ORAL For Anxiety 01/25/18 14:00 02/01/18 13:59 Nitroglycerin (Ntg) 0.4 mg Q5M PRN SL Prn Chest Pain 01/24/18 22:00 02/23/18 21:59 Ondansetron HCl (Zofran) 4 mg Q6H PRN IVP Nausea & Vomiting 01/24/18 22:00 02/23/18 21:59 Polyethylene Glycol (Miralax) 17 gm DAILYPRN PRN ORAL Constipation 01/24/18 22:00 02/23/18 21:59 Sodium Chloride 1,000 ml @ 500 mls/hr Q2H PRN IVLG sbp<90 during hd 01/25/18 12:20 01/26/18 23:59 Vitamin B Complex/ Vit C/Folic Acid (Nephrovite) 1 tab DAILY ORAL 01/25/18 12:20 02/24/18 12:19 01/26/18 08:28 Allergies: Coded Allergies: No Known Allergies (Unverified , 01/24/18) Subjective awake, alert, responsive, sitting up on chair No CP, No SOB, Dialysis today Objective Last Vital Signs Date Time Temp Pulse Resp B/P (MAP) Pulse Ox O2 Delivery O2 Flow Rate FiO2 01/26/18 14:00 72 125/82 01/26/18 12:00 98.3 18 99 01/26/18 09:00 Nasal Cannula 2.0 Laboratory Tests Test 01/26/18 06:43 White Blood Count 7.9 K/UL (4.8-10.8) Red Blood Count 3.78 M/UL (4.20-5.40) L Hemoglobin 10.8 G/DL (12.0-16.0) L Hematocrit 33.8 % (37.0-47.0) L Mean Corpuscular Volume 90 FL (80-99) Mean Corpuscular Hemoglobin 28.7 PG (27.0-31.0) Mean Corpuscular Hemoglobin Concent 32.0 G/DL (32.0-36.0) Red Cell Distribution Width 12.0 % (11.6-14.8) Platelet Count 224 K/UL (150-450) Mean Platelet Volume 7.3 FL (6.5-10.1) Neutrophils (%) (Auto) 60.4 % (45.0-75.0) Lymphocytes (%) (Auto) 24.0 % (20.0-45.0) Monocytes (%) (Auto) 11.5 % (1.0-10.0) H Eosinophils (%) (Auto) 2.9 % (0.0-3.0) Basophils (%) (Auto) 1.3 % (0.0-2.0) Sodium Level 134 MMOL/L (136-145) L Potassium Level 5.2 MMOL/L (3.5-5.1) H Chloride Level 98 MMOL/L (98-107) Carbon Dioxide Level 26 MMOL/L (21-32) Anion Gap 10 mmol/L (5-15) Blood Urea Nitrogen 60 mg/dL (7-18) H Creatinine 7.7 MG/DL (0.55-1.30) H Estimat Glomerular Filtration Rate 5.3 mL/min (>60) Glucose Level 127 MG/DL (74-106) H Calcium Level 8.3 MG/DL (8.5-10.1) L Microbiology Date/Time Source Procedure Growth Status 01/24/18 19:07 Nasal Nares MRSA Culture - Final NO METHICILLIN RESISTANT STAPH AUREUS... Complete 01/24/18 19:07 Rectum Received Intake and Output 01/25/18 01/26/18 19:00 07:00 Intake Total 360 ml Balance 360 ml Intake Oral 360 ml # Voids 2 1 Objective GENERAL: The patient is awake, responsive, in no acute distress. HEAD AND NECK: Pupils are reactive to light. Extraocular movements are intact. Right eye has opacity was noted. NECK: Supple. No JVD. LUNGS: Good air entry. No wheezing or rales. No crackles at bases. ABDOMEN: Soft, nondistended, and nontender. Mildly obese. EXTREMITIES: No cyanosis or clubbing. No pitting edema. Left upper extremity has AV fistula functional. NEUROLOGIC: Cranial nerves II through XII grossly intact. Motor is 5/5 in all extremities. Gait intact. Assessment/Plan Assessment/Plan ASSESSMENT: 1. Shortness of breath, most likely secondary to fluid overload. 2. End-stage renal disease, on hemodialysis. 3. Hypertension. 4. 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 5. Morbid obesity. 6. Acute on chronic CHF with Diastolic dysfunction. PLAN: On monitored unit. F/U with Dr. Young from Cardiology as well as Dr. Dr. Joel Vásquez from Nephrology. monitor laboratory in the morning. Discussed with the son extensively at the bedside. Code status is Full Code. DVT prophylaxis, heparin subcutaneous. Insulin sliding scale. Dialysis today DC planning for tomorrow. Darius Meyer M.D. 2D Echo: Normal left ventricular chamber size, systolic function and wall motion. Left ventricular ejection fraction estimated to be 50-55 %. Mild left ventricular hypertrophy by 2-D. Anterior Echo-free space, may be due to pericardial fat or effusion. All other cardiac chamber sizes are within normal limits. Echogenic material noted in Right Ventricle may be calcification of Moderate Band. Aortic valve moderate calcification with decreased cusp excursion c/w mild aortic stenosis. Heavily thickened mitral valve leaflets with mildly reduced excursion. Echogenic material noted on posterior Mitral leaflet may be calcification. Mitral annulus and aortic root calcification. Pulmonic valve not well visualized. Normal tricuspid valve structure. IVC at normal size with physiologic collapse. A color flow and spectral Doppler study was performed and revealed: Peak aortic valve gradient of 21 mm Hg and a mean of 12 mmHg. Aortic valve area 1.5 cm2 calculated by continuity equation. Mild mitral regurgitation. Peak mitral valve gradient of 15 mm Hg and a mean of 5 mmHg. Mitral diastolic velocities suggest reduced left ventricular relaxation c/w mild LV diastolic dysfunction (Grade I). Trace to mild tricuspid regurgitation. Tricuspid systolic velocities suggests peak right ventricular systolic pressure of 33 mmHg. Trace pulmonic regurgitation present. Darius Meyer MD Jan 26, 2018 15:36
[2018-01-26 16:00] VITALS: BP 145/55
--- NOTE | 2018-01-26 17:40 | Nephrology Progress Note ---
Assessment/Plan Problem List: (1) ESRD (end stage renal disease) on dialysis (2) Pulmonary edema (3) Hypertension Plan HD with more UF allow higher BP Discussed with RN and HD RN Discussed with daughter Discussed with Dr Meyer and Dr Young lowravin dose of Clonidine PRN Subjective Subjective seen on HD better Objective Objective Last 24 Hour Vital Signs Date Time Temp Pulse Resp B/P (MAP) Pulse Ox O2 Delivery O2 Flow Rate FiO2 01/26/18 16:00 98.3 81 18 145/55 (85) 100 01/26/18 14:00 72 125/82 01/26/18 12:00 98.3 65 18 141/62 (88) 99 01/26/18 12:00 74 01/26/18 09:00 Nasal Cannula 2.0 01/26/18 08:00 98.2 75 18 150/63 (92) 97 01/26/18 08:00 62 01/26/18 07:01 71 169/69 01/26/18 04:00 98.9 71 21 169/69 (102) 97 01/26/18 04:00 67 01/26/18 00:00 64 01/26/18 00:00 98.6 74 17 126/56 (79) 97 01/25/18 22:45 89 150/59 01/25/18 22:44 89 150/59 01/25/18 21:00 Nasal Cannula 2.0 01/25/18 20:00 98.1 78 20 150/59 (89) 95 01/25/18 20:00 62 Intake and Output 01/25/18 01/26/18 19:00 07:00 Intake Total 360 ml Balance 360 ml Intake Oral 360 ml # Voids 2 1 Laboratory Tests 01/26/18 06:43: White Blood Count 7.9, Red Blood Count 3.78L, Hemoglobin 10.8L, Hematocrit 33.8L , Mean Corpuscular Volume 90, Mean Corpuscular Hemoglobin 28.7, Mean Corpuscular Hemoglobin Concent 32.0, Red Cell Distribution Width 12.0, Platelet Count 224, Mean Platelet Volume 7.3, Neutrophils (%) (Auto) 60.4, Lymphocytes (% ) (Auto) 24.0, Monocytes (%) (Auto) 11.5H, Eosinophils (%) (Auto) 2.9, Basophils (%) (Auto) 1.3, Sodium Level 134L, Potassium Level 5.2H, Chloride Level 98, Carbon Dioxide Level 26, Anion Gap 10, Blood Urea Nitrogen 60H, Creatinine 7.7H, Estimat Glomerular Filtration Rate 5.3, Glucose Level 127H, Calcium Level 8.3L Height (Feet): 5 Height (Inches): 3.00 Weight (Pounds): 162 Cardiovascular: normal rate Respiratory/Chest: lungs clear Extremities: moderate edema Joel Vásquez MD Jan 26, 2018 17:40
[2018-01-26 20:00] VITALS: BP 148/65
[2018-01-26] MEDS: Atorvastatin 80mg tab ORAL SCH (20:52)
[2018-01-27] VITALS: BP 134/61
[2018-01-27 04:00] VITALS: BP 146/64
[2018-01-27] MEDS: dilTIAZem HCl 60mg tab ORAL SCH ×3 (06:05→22:02)
[2018-01-27] MEDS: NovoLOG Insulin Flexpen SUBQ SCH ×4 (06:07→21:00)
--- NOTE | 2018-01-27 07:47 | Pulmonology Progress Note ---
Assessment/Plan Assessment/Plan ASSESSMENT SOB likely secondary to fluid overload CHF exacerbation secondary to volume overload Hypertensive urgency Diabetes mellitus type 2 with diabetic nephropathy and diabetic retinopathy Morbid obesity Elevated troponin (likely due to renal disease, as per cardio) End-stage renal disease PLAN of CARE tele cardio follows continue ASA ,statin , BB BP management with CCB and BB Nitro prn O2 titrate to keep pulse oximetry above 92% , pulmonary toilet prn CT chest - no PE HD as per nephro with close monitoring of cardio-renal parameters and electrolytes correct electrolytes prn DVT prophylaxis bowel regimen BS management with 70/30 insulin, and SSI prn bowel regimen supportive care case discussed and evaluated by supervising physician Subjective Allergies: Coded Allergies: No Known Allergies (Unverified , 01/24/18) Subjective denies chest pain, pulse ox stable on o2 via NC sitting in the chair Objective Last 24 Hour Vital Signs Date Time Temp Pulse Resp B/P (MAP) Pulse Ox O2 Delivery O2 Flow Rate FiO2 01/27/18 06:05 79 142/63 01/27/18 04:00 98.1 74 18 146/64 (91) 97 01/27/18 04:00 73 01/27/18 00:00 98.4 70 18 134/61 (85) 95 01/27/18 00:00 66 01/26/18 21:54 88 150/62 01/26/18 21:00 Nasal Cannula 2.0 01/26/18 20:52 78 145/55 01/26/18 20:00 73 01/26/18 20:00 97.9 71 18 148/65 (92) 97 01/26/18 16:00 70 01/26/18 16:00 98.3 81 18 145/55 (85) 100 01/26/18 14:00 72 125/82 01/26/18 12:00 98.3 65 18 141/62 (88) 99 01/26/18 12:00 74 01/26/18 09:00 Nasal Cannula 2.0 01/26/18 08:00 98.2 75 18 150/63 (92) 97 01/26/18 08:00 62 Intake and Output 01/26/18 01/27/18 19:00 07:00 Intake Total 360 ml 200 ml Balance 360 ml 200 ml Intake Oral 360 ml 200 ml # Voids 2 # Bowel Movements 1 Objective General Appearance: no acute distress HEENT: normocephalic, atraumatic, anicteric, mucous membranes moist Respiratory/Chest: lungs clear, no respiratory distress, no accessory muscle use Cardiovascular: normal rate - SR on tele, regular rhythm, LUE AV fistula + bruit/thrill Abdomen: normal bowel sounds, soft, non tender, non distended Extremities: no edema Neurologic/Psychiatric: no motor/sensory deficits, alert, oriented x 3, responsive Musculoskeletal: normal muscle bulk Microbiology Date/Time Source Procedure Growth Status 01/24/18 19:07 Nasal Nares MRSA Culture - Final NO METHICILLIN RESISTANT STAPH AUREUS... Complete 01/25/18 16:30 Rectum - Final NO CARBAPENEM-RESISTANT ENTEROBACTERI... Complete 01/24/18 19:07 Rectum VRE Culture - Final NO VANCOMYCIN RESISTANT ENTEROCOCCUS ... Complete Current Medications Medications (Trade) Dose Ordered Sig/Jose Route PRN Reason Start Time Stop Time Status Last Admin Dose Admin Acetaminophen (Tylenol) 650 mg Q4H PRN ORAL Mild Pain (Pain Scale 1-3) 01/24/18 22:00 02/23/18 21:59 Acetaminophen (Tylenol) 650 mg Q4H PRN ORAL fever 01/24/18 22:00 02/23/18 21:59 Acetaminophen (Tylenol) 650 mg Q4H PRN RECTAL Mild Pain (Pain Scale 1-3) 01/24/18 22:00 02/23/18 21:59 Acetaminophen (Tylenol) 650 mg Q4H PRN RECTAL fever 01/24/18 22:00 02/23/18 21:59 Acetaminophen (Tylenol) 650 mg Q6H PRN ORAL Mild Pain/Temp > 100.5 01/24/18 21:30 02/23/18 21:29 01/26/18 04:24 Albuterol/ Ipratropium (Albuterol/ Ipratropium) 3 ml Q4H PRN HHN Shortness of Breath 01/26/18 10:45 01/31/18 10:44 Aspirin (ASA) 81 mg DAILY ORAL 01/25/18 09:00 02/24/18 08:59 01/26/18 08:28 Atorvastatin Calcium (Lipitor) 80 mg BEDTIME ORAL 01/25/18 21:00 02/24/18 20:59 01/26/18 20:52 Carvedilol (Coreg) 6.25 mg EVERY 12 HOURS ORAL 01/24/18 21:00 02/23/18 20:59 01/26/18 20:52 Clonidine HCl (Catapres Tab) 0.1 mg Q4H PRN ORAL For High Blood Pressure 01/26/18 17:45 02/25/18 17:44 Dextrose (Dextrose 50%) 25 ml Q30M PRN IV Hypoglycemia 01/24/18 22:00 02/23/18 21:59 Dextrose (Dextrose 50%) 50 ml Q30M PRN IV Hypoglycemia 01/24/18 22:00 02/23/18 21:59 01/25/18 12:12 Diltiazem HCl (Cardizem) 60 mg EVERY 8 HOURS ORAL 01/24/18 22:00 02/23/18 21:59 01/27/18 06:05 Docusate Sodium (Colace) 100 mg EVERY 12 HOURS ORAL 01/25/18 09:00 02/24/18 08:59 01/26/18 20:52 Heparin Sodium (Porcine) (Heparin 5000 units/ml) 5,000 units EVERY 12 HOURS SUBQ 01/25/18 09:00 02/24/18 08:59 01/26/18 20:54 Insulin Aspart (NovoLOG) BEFORE MEALS AND HS SUBQ 01/25/18 06:30 02/24/18 06:29 01/27/18 06:07 Lorazepam (Ativan) 2 mg Q6H PRN ORAL For Anxiety 01/25/18 14:00 02/01/18 13:59 Nitroglycerin (Ntg) 0.4 mg Q5M PRN SL Prn Chest Pain 01/24/18 22:00 02/23/18 21:59 Ondansetron HCl (Zofran) 4 mg Q6H PRN IVP Nausea & Vomiting 01/24/18 22:00 02/23/18 21:59 Polyethylene Glycol (Miralax) 17 gm DAILYPRN PRN ORAL Constipation 01/24/18 22:00 02/23/18 21:59 Vitamin B Complex/ Vit C/Folic Acid (Nephrovite) 1 tab DAILY ORAL 01/25/18 12:20 02/24/18 12:19 01/26/18 08:28 Ingrid Tello NP Jan 27, 2018 07:47
[2018-01-27 08:00] VITALS: BP 155/62
[2018-01-27] MEDS: Nephrovite tab (Rena-Vite) ORAL SCH (08:55)
[2018-01-27] MEDS: Aspirin Baby 81mg ORAL SCH (08:55)
[2018-01-27] MEDS: Carvedilol 6.25mg Tab ORAL SCH ×2 (08:55→20:58)
[2018-01-27] MEDS: Docusate 100mg cap ORAL SCH ×2 (08:55→20:58)
[2018-01-27] MEDS: Heparin 5000 units/ml inj SUBQ SCH ×2 (08:56→21:01)
[2018-01-27 12:00] VITALS: BP 119/63
--- NOTE | 2018-01-27 13:27 | Nephrology Progress Note ---
Assessment/Plan Problem List: (1) ESRD (end stage renal disease) on dialysis (2) Pulmonary edema (3) Hypertension Plan HD in AM allow higher BP Discussed with RN Subjective Subjective feels ok Objective Objective Last 24 Hour Vital Signs Date Time Temp Pulse Resp B/P (MAP) Pulse Ox O2 Delivery O2 Flow Rate FiO2 01/27/18 13:09 71 119/63 01/27/18 09:00 Nasal Cannula 2.0 01/27/18 08:55 78 155/62 01/27/18 08:00 98.2 78 18 155/62 (93) 98 01/27/18 08:00 83 01/27/18 06:05 79 142/63 01/27/18 04:00 98.1 74 18 146/64 (91) 97 01/27/18 04:00 73 01/27/18 00:00 98.4 70 18 134/61 (85) 95 01/27/18 00:00 66 01/26/18 21:54 88 150/62 01/26/18 21:00 Nasal Cannula 2.0 01/26/18 20:52 78 145/55 01/26/18 20:00 73 01/26/18 20:00 97.9 71 18 148/65 (92) 97 01/26/18 16:00 70 01/26/18 16:00 98.3 81 18 145/55 (85) 100 01/26/18 14:00 72 125/82 Intake and Output 01/26/18 01/27/18 18:59 06:59 Intake Total 360 ml 200 ml Balance 360 ml 200 ml Intake Oral 360 ml 200 ml # Voids 2 # Bowel Movements 1 Height (Feet): 5 Height (Inches): 3.00 Weight (Pounds): 159 Cardiovascular: normal rate Respiratory/Chest: lungs clear Extremities: moderate edema Joel Vásquez MD Jan 27, 2018 13:27
[2018-01-27 16:00] VITALS: BP 149/60
--- NOTE | 2018-01-27 17:11 | Cardiac Electrophysiology PN ---
Assessment/Plan Assessment/Plan 1. Accelerated hypertension with blood pressure of more than 200. On Cardizem 60 q8hr and Coreg 6.25 bid. 2. Chest pain. The patient's EKG is negative. Troponin is mildly elevated. It could be due to the patient's renal failure. Chest CT showed no evidence of pulmonary embolism.EF 55% 3. ESRD on HD 4. Congestive heart failure exacerbation EF 55% on HD\ 5. Low glucose DW RN Subjective Subjective Altered. In SR. No events on tele Objective Last 24 Hour Vital Signs Date Time Temp Pulse Resp B/P (MAP) Pulse Ox O2 Delivery O2 Flow Rate FiO2 01/27/18 13:09 71 119/63 01/27/18 12:00 97.3 66 18 119/63 (81) 97 01/27/18 12:00 68 01/27/18 09:00 Nasal Cannula 2.0 01/27/18 08:55 78 155/62 01/27/18 08:00 98.2 78 18 155/62 (93) 98 01/27/18 08:00 83 01/27/18 06:05 79 142/63 01/27/18 04:00 98.1 74 18 146/64 (91) 97 01/27/18 04:00 73 01/27/18 00:00 98.4 70 18 134/61 (85) 95 01/27/18 00:00 66 01/26/18 21:54 88 150/62 01/26/18 21:00 Nasal Cannula 2.0 01/26/18 20:52 78 145/55 01/26/18 20:00 73 01/26/18 20:00 97.9 71 18 148/65 (92) 97 Intake and Output 01/26/18 01/27/18 18:59 06:59 Intake Total 360 ml 200 ml Balance 360 ml 200 ml Intake Oral 360 ml 200 ml # Voids 2 # Bowel Movements 1 Microbiology Date/Time Source Procedure Growth Status 01/24/18 19:07 Nasal Nares MRSA Culture - Final NO METHICILLIN RESISTANT STAPH AUREUS... Complete 01/25/18 16:30 Rectum - Final NO CARBAPENEM-RESISTANT ENTEROBACTERI... Complete 01/24/18 19:07 Rectum VRE Culture - Final NO VANCOMYCIN RESISTANT ENTEROCOCCUS ... Complete Objective HEAD AND NECK: No JVD. LUNGS: Clear. CARDIOVASCULAR: Regular S1 and S2 with no gallop or murmur. ABDOMEN: Soft. EXTREMITIES: No pitting edema. Micah Young MD Jan 27, 2018 17:11
[2018-01-27 20:00] VITALS: BP 146/57
[2018-01-27] MEDS: Atorvastatin 80mg tab ORAL SCH (20:58)
--- NOTE | 2018-01-27 22:37 | Internal Med Progress Note ---
Subjective Physician Name Darius Meyer Attending Physician Darius Meyer MD Current Medications Medications (Trade) Dose Ordered Sig/Jose Route PRN Reason Start Time Stop Time Status Last Admin Dose Admin Acetaminophen (Tylenol) 650 mg Q4H PRN ORAL Mild Pain (Pain Scale 1-3) 01/24/18 22:00 02/23/18 21:59 Acetaminophen (Tylenol) 650 mg Q4H PRN ORAL fever 01/24/18 22:00 02/23/18 21:59 Acetaminophen (Tylenol) 650 mg Q4H PRN RECTAL Mild Pain (Pain Scale 1-3) 01/24/18 22:00 02/23/18 21:59 Acetaminophen (Tylenol) 650 mg Q4H PRN RECTAL fever 01/24/18 22:00 02/23/18 21:59 Acetaminophen (Tylenol) 650 mg Q6H PRN ORAL Mild Pain/Temp > 100.5 01/24/18 21:30 02/23/18 21:29 01/27/18 15:34 Albuterol/ Ipratropium (Albuterol/ Ipratropium) 3 ml Q4H PRN HHN Shortness of Breath 01/26/18 10:45 01/31/18 10:44 Aspirin (ASA) 81 mg DAILY ORAL 01/25/18 09:00 02/24/18 08:59 01/27/18 08:55 Atorvastatin Calcium (Lipitor) 80 mg BEDTIME ORAL 01/25/18 21:00 02/24/18 20:59 01/27/18 20:58 Carvedilol (Coreg) 6.25 mg EVERY 12 HOURS ORAL 01/24/18 21:00 02/23/18 20:59 01/27/18 20:58 Clonidine HCl (Catapres Tab) 0.1 mg Q4H PRN ORAL For High Blood Pressure 01/26/18 17:45 02/25/18 17:44 Dextrose (Dextrose 50%) 25 ml Q30M PRN IV Hypoglycemia 01/24/18 22:00 02/23/18 21:59 Dextrose (Dextrose 50%) 50 ml Q30M PRN IV Hypoglycemia 01/24/18 22:00 02/23/18 21:59 01/25/18 12:12 Diltiazem HCl (Cardizem) 60 mg EVERY 8 HOURS ORAL 01/24/18 22:00 02/23/18 21:59 01/27/18 22:02 Docusate Sodium (Colace) 100 mg EVERY 12 HOURS ORAL 01/25/18 09:00 02/24/18 08:59 01/27/18 20:58 Heparin Sodium (Porcine) (Heparin 5000 units/ml) 5,000 units EVERY 12 HOURS SUBQ 01/25/18 09:00 02/24/18 08:59 01/27/18 21:01 Heparin Sodium (Porcine) (Heparin Sod 1000 units/ml 10ml) 500 unit ONCE IV 01/28/18 13:30 01/28/18 16:00 Heparin Sodium (Porcine) (Heparin Sod 1000 units/ml 10ml) 2,000 unit ONCE IV 01/28/18 13:30 01/28/18 16:00 Heparin Sodium (Porcine) (Heparin) 1,000 unit POSTHD INJ 01/28/18 13:30 01/28/18 16:00 Insulin Aspart (NovoLOG) BEFORE MEALS AND HS SUBQ 01/25/18 06:30 02/24/18 06:29 01/27/18 21:00 Lorazepam (Ativan) 2 mg Q6H PRN ORAL For Anxiety 01/25/18 14:00 02/01/18 13:59 Nitroglycerin (Ntg) 0.4 mg Q5M PRN SL Prn Chest Pain 01/24/18 22:00 02/23/18 21:59 Ondansetron HCl (Zofran) 4 mg Q6H PRN IVP Nausea & Vomiting 01/24/18 22:00 02/23/18 21:59 Polyethylene Glycol (Miralax) 17 gm DAILYPRN PRN ORAL Constipation 01/24/18 22:00 02/23/18 21:59 Sodium Chloride 1,000 ml @ 500 mls/hr Q2H PRN IVLG sbp<90 during hd 01/28/18 13:20 02/27/18 13:19 Vitamin B Complex/ Vit C/Folic Acid (Nephrovite) 1 tab DAILY ORAL 01/25/18 12:20 02/24/18 12:19 01/27/18 08:55 Allergies: Coded Allergies: No Known Allergies (Unverified , 01/24/18) Subjective awake, alert, responsive, sitting up on chair No CP, No SOB. Objective Last Vital Signs Date Time Temp Pulse Resp B/P (MAP) Pulse Ox O2 Delivery O2 Flow Rate FiO2 01/27/18 22:02 69 156/61 01/27/18 21:00 Nasal Cannula 2.0 01/27/18 20:00 97.0 18 96 Microbiology Date/Time Source Procedure Growth Status 01/25/18 16:30 Rectum - Final NO CARBAPENEM-RESISTANT ENTEROBACTERI... Complete Intake and Output 01/26/18 01/27/18 19:00 07:00 Intake Total 360 ml 200 ml Balance 360 ml 200 ml Intake Oral 360 ml 200 ml # Voids 2 # Bowel Movements 1 Objective GENERAL: The patient is awake, responsive, in no acute distress. HEAD AND NECK: Pupils are reactive to light. Extraocular movements are intact. Right eye has opacity was noted. NECK: Supple. No JVD. LUNGS: Good air entry. No wheezing or rales. No crackles at bases. ABDOMEN: Soft, nondistended, and nontender. Mildly obese. EXTREMITIES: No cyanosis or clubbing. No pitting edema. Left upper extremity has AV fistula functional. NEUROLOGIC: Cranial nerves II through XII grossly intact. Motor is 5/5 in all extremities. Gait intact. Assessment/Plan Assessment/Plan ASSESSMENT: 1. Shortness of breath, most likely secondary to fluid overload. 2. End-stage renal disease, on hemodialysis. 3. Hypertension. 4. 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 5. Morbid obesity. 6. Acute on chronic CHF with Diastolic dysfunction. PLAN: On monitored unit. F/U with Dr. Young from Cardiology as well as Dr. Dr. Joel Vásquez from Nephrology. monitor laboratory in the morning. Discussed with the son extensively at the bedside. Code status is Full Code. DVT prophylaxis, heparin subcutaneous. Insulin sliding scale. Dialysis Tomorrow DC planning in tomorrow after dialysis. Darius Meyer M.D. 2D Echo: Normal left ventricular chamber size, systolic function and wall motion. Left ventricular ejection fraction estimated to be 50-55 %. Mild left ventricular hypertrophy by 2-D. Anterior Echo-free space, may be due to pericardial fat or effusion. All other cardiac chamber sizes are within normal limits. Echogenic material noted in Right Ventricle may be calcification of Moderate Band. Aortic valve moderate calcification with decreased cusp excursion c/w mild aortic stenosis. Heavily thickened mitral valve leaflets with mildly reduced excursion. Echogenic material noted on posterior Mitral leaflet may be calcification. Mitral annulus and aortic root calcification. Pulmonic valve not well visualized. Normal tricuspid valve structure. IVC at normal size with physiologic collapse. A color flow and spectral Doppler study was performed and revealed: Peak aortic valve gradient of 21 mm Hg and a mean of 12 mmHg. Aortic valve area 1.5 cm2 calculated by continuity equation. Mild mitral regurgitation. Peak mitral valve gradient of 15 mm Hg and a mean of 5 mmHg. Mitral diastolic velocities suggest reduced left ventricular relaxation c/w mild LV diastolic dysfunction (Grade I). Trace to mild tricuspid regurgitation. Tricuspid systolic velocities suggests peak right ventricular systolic pressure of 33 mmHg. Trace pulmonic regurgitation present. Darius Meyer MD Jan 27, 2018 22:37
[2018-01-28] VITALS: BP 143/51
[2018-01-28 04:00] VITALS: BP 158/57
[2018-01-28] MEDS: dilTIAZem HCl 60mg tab ORAL SCH ×2 (06:34→14:00)
[2018-01-28] MEDS: NovoLOG Insulin Flexpen SUBQ SCH ×3 (06:35→16:30)
[2018-01-28 08:00] VITALS: BP 152/75
[2018-01-28] MEDS: Docusate 100mg cap ORAL SCH (09:00)
[2018-01-28] MEDS: Nephrovite tab (Rena-Vite) ORAL SCH (09:02)
[2018-01-28] MEDS: Aspirin Baby 81mg ORAL SCH (09:02)
[2018-01-28] MEDS: Carvedilol 6.25mg Tab ORAL SCH (09:03)
[2018-01-28] MEDS: Heparin 5000 units/ml inj SUBQ SCH (09:03)
[2018-01-28 12:00] VITALS: BP 156/60
--- NOTE | 2018-01-28 12:01 | Nephrology Progress Note ---
Assessment/Plan Problem List: (1) ESRD (end stage renal disease) on dialysis (2) Pulmonary edema Assessment: better (3) Hypertension Assessment: ok for now Plan HD with UF as tolerated watch BP Discussed with HD RN Subjective Subjective pt was seen on dialysis not SOB Objective Objective Last 24 Hour Vital Signs Date Time Temp Pulse Resp B/P (MAP) Pulse Ox O2 Delivery O2 Flow Rate FiO2 01/28/18 09:03 77 152/75 01/28/18 09:00 Room Air 01/28/18 08:00 98.9 77 18 152/75 (100) 99 01/28/18 07:47 77 01/28/18 07:42 98 Room Air 21 01/28/18 07:42 Room Air 21 01/28/18 07:42 67 18 Room Air 21 01/28/18 06:34 66 158/57 01/28/18 04:00 66 01/28/18 04:00 97.0 67 18 158/57 (90) 99 01/28/18 00:00 68 01/28/18 00:00 97.7 67 18 143/51 (81) 98 01/27/18 22:02 69 156/61 01/27/18 21:50 Nasal Cannula 2.0 28 01/27/18 21:50 98 Nasal Cannula 2.0 28 01/27/18 21:00 Nasal Cannula 2.0 01/27/18 20:58 67 146/57 01/27/18 20:00 97.0 67 18 146/57 (86) 96 01/27/18 20:00 68 01/27/18 16:00 74 01/27/18 16:00 98.3 71 18 149/60 (89) 97 01/27/18 13:09 71 119/63 01/27/18 12:00 97.3 66 18 119/63 (81) 97 01/27/18 12:00 68 Intake and Output 01/27/18 01/28/18 19:00 07:00 Intake Total 360 ml 240 ml Balance 360 ml 240 ml Intake Oral 360 ml 240 ml # Voids 2 3 # Bowel Movements 1 2 Height (Feet): 5 Height (Inches): 3.00 Weight (Pounds): 157 Cardiovascular: normal rate Respiratory/Chest: lungs clear Extremities: trace edema Joel Vásquez MD Jan 28, 2018 12:01
--- NOTE | 2018-01-28 12:47 | Cardiac Electrophysiology PN ---
Assessment/Plan Assessment/Plan 1. Accelerated hypertension with blood pressure of more than 200. On Cardizem 60 q8hr and Coreg 6.25 bid.BP mildly high but needed for HD 2. Chest pain. The patient's EKG is negative. Troponin is mildly elevated. It could be due to the patient's renal failure. Chest CT showed no evidence of pulmonary embolism.EF 55% 3. ESRD on HD 4. Congestive heart failure exacerbation EF 55% on HD\ 5. Low glucose DW RN Subjective Subjective BP better on HD now. No CP or SOB Objective Last 24 Hour Vital Signs Date Time Temp Pulse Resp B/P (MAP) Pulse Ox O2 Delivery O2 Flow Rate FiO2 01/28/18 09:03 77 152/75 01/28/18 09:00 Room Air 01/28/18 08:00 98.9 77 18 152/75 (100) 99 01/28/18 07:47 77 01/28/18 07:42 98 Room Air 21 01/28/18 07:42 Room Air 21 01/28/18 07:42 67 18 Room Air 21 01/28/18 06:34 66 158/57 01/28/18 04:00 66 01/28/18 04:00 97.0 67 18 158/57 (90) 99 01/28/18 00:00 68 01/28/18 00:00 97.7 67 18 143/51 (81) 98 01/27/18 22:02 69 156/61 01/27/18 21:50 Nasal Cannula 2.0 28 01/27/18 21:50 98 Nasal Cannula 2.0 28 01/27/18 21:00 Nasal Cannula 2.0 01/27/18 20:58 67 146/57 01/27/18 20:00 97.0 67 18 146/57 (86) 96 01/27/18 20:00 68 01/27/18 16:00 74 01/27/18 16:00 98.3 71 18 149/60 (89) 97 01/27/18 13:09 71 119/63 Intake and Output 01/27/18 01/28/18 18:59 06:59 Intake Total 360 ml 240 ml Balance 360 ml 240 ml Intake Oral 360 ml 240 ml # Voids 2 3 # Bowel Movements 1 2 Microbiology Date/Time Source Procedure Growth Status 01/25/18 16:30 Rectum - Final NO CARBAPENEM-RESISTANT ENTEROBACTERI... Complete Objective HEAD AND NECK: No JVD. LUNGS: Clear. CARDIOVASCULAR: Regular S1 and S2 with no gallop or murmur. ABDOMEN: Soft. EXTREMITIES: No pitting edema. Micah Young MD Jan 28, 2018 12:47
[2018-01-28] MEDS ORDERED: Heparin 1000 units/ml 1ml Vial INJ SCH (13:30)
[2018-01-28] MEDS ORDERED: Heparin Sod 1000 units/ml 10ml IV SCH ×2 (13:30)
--- NOTE | 2018-01-28 13:43 | Pulmonology Progress Note ---
Assessment/Plan Problems: (1) Acute respiratory failure (2) Pulmonary edema (3) Hypertension (4) ESRD (end stage renal disease) on dialysis Assessment/Plan dialysis by nephrology, in process check electrolytes diabetic diet and sliding scale fluid restriction dvt prophylaxis symptomatic treatment. BP very well controlled dc planning Subjective ROS Limited/Unobtainable: No Constitutional: Reports: no symptoms HEENT: Repors: no symptoms Respiratory: Reports: no symptoms Allergies: Coded Allergies: No Known Allergies (Unverified , 01/24/18) Objective Last 24 Hour Vital Signs Date Time Temp Pulse Resp B/P (MAP) Pulse Ox O2 Delivery O2 Flow Rate FiO2 01/28/18 09:03 77 152/75 01/28/18 09:00 Room Air 01/28/18 08:00 98.9 77 18 152/75 (100) 99 01/28/18 07:47 77 01/28/18 07:42 98 Room Air 21 01/28/18 07:42 Room Air 21 01/28/18 07:42 67 18 Room Air 21 01/28/18 06:34 66 158/57 01/28/18 04:00 66 01/28/18 04:00 97.0 67 18 158/57 (90) 99 01/28/18 00:00 68 01/28/18 00:00 97.7 67 18 143/51 (81) 98 01/27/18 22:02 69 156/61 01/27/18 21:50 Nasal Cannula 2.0 28 01/27/18 21:50 98 Nasal Cannula 2.0 28 01/27/18 21:00 Nasal Cannula 2.0 01/27/18 20:58 67 146/57 01/27/18 20:00 97.0 67 18 146/57 (86) 96 01/27/18 20:00 68 01/27/18 16:00 74 01/27/18 16:00 98.3 71 18 149/60 (89) 97 Intake and Output 01/27/18 01/28/18 18:59 06:59 Intake Total 360 ml 240 ml Balance 360 ml 240 ml Intake Oral 360 ml 240 ml # Voids 2 3 # Bowel Movements 1 2 General Appearance: WD/WN HEENT: normocephalic, anicteric Respiratory/Chest: chest wall non-tender, lungs clear Cardiovascular: normal peripheral pulses, normal rate Abdomen: normal bowel sounds, no organomegaly Genitourinary: normal external genitalia Extremities: no clubbing Skin: no rash Microbiology Date/Time Source Procedure Growth Status 01/25/18 16:30 Rectum - Final NO CARBAPENEM-RESISTANT ENTEROBACTERI... Complete Current Medications Medications (Trade) Dose Ordered Sig/Jose Route PRN Reason Start Time Stop Time Status Last Admin Dose Admin Acetaminophen (Tylenol) 650 mg Q4H PRN ORAL Mild Pain (Pain Scale 1-3) 01/24/18 22:00 02/23/18 21:59 Acetaminophen (Tylenol) 650 mg Q4H PRN ORAL fever 01/24/18 22:00 02/23/18 21:59 Acetaminophen (Tylenol) 650 mg Q4H PRN RECTAL Mild Pain (Pain Scale 1-3) 01/24/18 22:00 02/23/18 21:59 Acetaminophen (Tylenol) 650 mg Q4H PRN RECTAL fever 01/24/18 22:00 02/23/18 21:59 Acetaminophen (Tylenol) 650 mg Q6H PRN ORAL Mild Pain/Temp > 100.5 01/24/18 21:30 02/23/18 21:29 01/27/18 15:34 Albuterol/ Ipratropium (Albuterol/ Ipratropium) 3 ml Q4H PRN HHN Shortness of Breath 01/26/18 10:45 01/31/18 10:44 Aspirin (ASA) 81 mg DAILY ORAL 01/25/18 09:00 02/24/18 08:59 01/28/18 09:02 Atorvastatin Calcium (Lipitor) 80 mg BEDTIME ORAL 01/25/18 21:00 02/24/18 20:59 01/27/18 20:58 Carvedilol (Coreg) 6.25 mg EVERY 12 HOURS ORAL 01/24/18 21:00 02/23/18 20:59 01/28/18 09:03 Clonidine HCl (Catapres Tab) 0.1 mg Q4H PRN ORAL For High Blood Pressure 01/26/18 17:45 02/25/18 17:44 Dextrose (Dextrose 50%) 25 ml Q30M PRN IV Hypoglycemia 01/24/18 22:00 02/23/18 21:59 Dextrose (Dextrose 50%) 50 ml Q30M PRN IV Hypoglycemia 01/24/18 22:00 02/23/18 21:59 01/25/18 12:12 Diltiazem HCl (Cardizem) 60 mg EVERY 8 HOURS ORAL 01/24/18 22:00 02/23/18 21:59 01/28/18 06:34 Docusate Sodium (Colace) 100 mg EVERY 12 HOURS ORAL 01/25/18 09:00 02/24/18 08:59 01/27/18 20:58 Heparin Sodium (Porcine) (Heparin 5000 units/ml) 5,000 units EVERY 12 HOURS SUBQ 01/25/18 09:00 02/24/18 08:59 01/28/18 09:03 Heparin Sodium (Porcine) (Heparin Sod 1000 units/ml 10ml) 500 unit ONCE IV 01/28/18 13:30 01/28/18 16:00 Heparin Sodium (Porcine) (Heparin Sod 1000 units/ml 10ml) 2,000 unit ONCE IV 01/28/18 13:30 01/28/18 16:00 Heparin Sodium (Porcine) (Heparin) 1,000 unit POSTHD INJ 01/28/18 13:30 01/28/18 16:00 Insulin Aspart (NovoLOG) BEFORE MEALS AND HS SUBQ 01/25/18 06:30 02/24/18 06:29 01/28/18 06:35 Lorazepam (Ativan) 2 mg Q6H PRN ORAL For Anxiety 01/25/18 14:00 02/01/18 13:59 Nitroglycerin (Ntg) 0.4 mg Q5M PRN SL Prn Chest Pain 01/24/18 22:00 02/23/18 21:59 Ondansetron HCl (Zofran) 4 mg Q6H PRN IVP Nausea & Vomiting 01/24/18 22:00 02/23/18 21:59 Polyethylene Glycol (Miralax) 17 gm DAILYPRN PRN ORAL Constipation 01/24/18 22:00 02/23/18 21:59 Sodium Chloride 1,000 ml @ 500 mls/hr Q2H PRN IVLG sbp<90 during hd 01/28/18 13:20 02/27/18 13:19 Vitamin B Complex/ Vit C/Folic Acid (Nephrovite) 1 tab DAILY ORAL 01/25/18 12:20 02/24/18 12:19 01/28/18 09:02 Scotty Cohen MD Jan 28, 2018 13:43
[2018-01-28 16:00] VITALS: BP 151/58
--- NOTE | 2018-01-28 22:20 | Internal Med Progress Note ---
Subjective Physician Name Darius Meyer Attending Physician Darius Meyer MD Allergies: Coded Allergies: No Known Allergies (Unverified , 01/24/18) Subjective awake, alert, responsive, No CP, No SOB. Objective Last Vital Signs Date Time Temp Pulse Resp B/P (MAP) Pulse Ox O2 Delivery O2 Flow Rate FiO2 01/28/18 16:00 97.5 70 18 151/58 (89) 98 01/28/18 09:00 Room Air 01/28/18 07:42 21 Intake and Output 01/27/18 01/28/18 19:00 07:00 Intake Total 360 ml 240 ml Balance 360 ml 240 ml Intake Oral 360 ml 240 ml # Voids 2 3 # Bowel Movements 1 2 Objective GENERAL: The patient is awake, responsive, in no acute distress. HEAD AND NECK: Pupils are reactive to light. Extraocular movements are intact. Right eye has opacity was noted. NECK: Supple. No JVD. LUNGS: Good air entry. No wheezing or rales. No crackles at bases. ABDOMEN: Soft, nondistended, and nontender. Mildly obese. EXTREMITIES: No cyanosis or clubbing. No pitting edema. Left upper extremity has AV fistula functional. NEUROLOGIC: Cranial nerves II through XII grossly intact. Motor is 5/5 in all extremities. Gait intact. Assessment/Plan Assessment/Plan ASSESSMENT: 1. Shortness of breath, most likely secondary to fluid overload. 2. End-stage renal disease, on hemodialysis. 3. Hypertension. 4. 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 5. Morbid obesity. 6. Acute on chronic CHF with Diastolic dysfunction. PLAN: On monitored unit. F/U with Dr. Young from Cardiology as well as Dr. Dr. Joel Vásquez from Nephrology. monitor laboratory in the morning. Discussed with the son extensively at the bedside. Code status is Full Code. DVT prophylaxis, heparin subcutaneous. Insulin sliding scale. Dialysis today DC home today Darius Meyer M.D. 2D Echo: Normal left ventricular chamber size, systolic function and wall motion. Left ventricular ejection fraction estimated to be 50-55 %. Mild left ventricular hypertrophy by 2-D. Anterior Echo-free space, may be due to pericardial fat or effusion. All other cardiac chamber sizes are within normal limits. Echogenic material noted in Right Ventricle may be calcification of Moderate Band. Aortic valve moderate calcification with decreased cusp excursion c/w mild aortic stenosis. Heavily thickened mitral valve leaflets with mildly reduced excursion. Echogenic material noted on posterior Mitral leaflet may be calcification. Mitral annulus and aortic root calcification. Pulmonic valve not well visualized. Normal tricuspid valve structure. IVC at normal size with physiologic collapse. A color flow and spectral Doppler study was performed and revealed: Peak aortic valve gradient of 21 mm Hg and a mean of 12 mmHg. Aortic valve area 1.5 cm2 calculated by continuity equation. Mild mitral regurgitation. Peak mitral valve gradient of 15 mm Hg and a mean of 5 mmHg. Mitral diastolic velocities suggest reduced left ventricular relaxation c/w mild LV diastolic dysfunction (Grade I). Trace to mild tricuspid regurgitation. Tricuspid systolic velocities suggests peak right ventricular systolic pressure of 33 mmHg. Trace pulmonic regurgitation present. Darius Meyer MD Jan 28, 2018 22:20
--- NOTE | 2018-01-29 00:07 | General Progress Note ---
Assessment/Plan Problem List: (1) anxiety d/o Status: stable, progressing Assessment/Plan Anxiety d/o ativan prn provided ro/st Subjective Date patient seen: Jan 28, 2018 Neurologic/Psychiatric: Reports: anxiety, depressed, emotional problems Allergies: Coded Allergies: No Known Allergies (Unverified , 01/24/18) Objective Last 24 Hour Vital Signs Date Time Temp Pulse Resp B/P (MAP) Pulse Ox O2 Delivery O2 Flow Rate FiO2 01/28/18 16:00 97.5 70 18 151/58 (89) 98 01/28/18 15:14 69 01/28/18 14:00 67 156/60 01/28/18 12:00 98.6 67 18 156/60 (92) 98 01/28/18 11:53 65 01/28/18 09:03 77 152/75 01/28/18 09:00 Room Air 01/28/18 08:00 98.9 77 18 152/75 (100) 99 01/28/18 07:47 77 01/28/18 07:42 98 Room Air 21 01/28/18 07:42 Room Air 21 01/28/18 07:42 67 18 Room Air 21 01/28/18 06:34 66 158/57 01/28/18 04:00 66 01/28/18 04:00 97.0 67 18 158/57 (90) 99 Intake and Output 01/28/18 01/29/18 19:00 07:00 Intake Total 120 ml Output Total 3000 ml Balance -2880 ml Intake Oral 120 ml Output Hemodialysis UF 3000 ml # Voids 1 # Bowel Movements 3 Height (Feet): 5 Height (Inches): 3.00 Weight (Pounds): 157 General Appearance: no apparent distress, alert Neurologic: oriented x 3, responsive, depressed affect Seth Alves MD Jan 29, 2018 00:07
--- NOTE | 2018-01-30 12:23 | Discharge Summary ---
Discharge Summary Discharge Summary _ DATE OF ADMISSION: 01/24/2018 DATE OF DISCHARGE: 01/28/2018 DISCHARGED BY: Dr. Meyer REASON FOR ADMISSION: 62 years old female with past medical history of hypertension, diabetes mellitus type 2 with diabetic nephropathy and diabetic retinopathy, end-stage renal disease on hemodialysis, presented to [facility] emergency room complaining of shortness of breath. Patient apparently missed one hemodialysis session. Patient had mild elevation of troponin, elevated pro BNP and shortness of breath. Patient was subsequently transferred to [facility] for further evaluation and management. CONSULTANTS: clinic administrator Dr. Valero pulmonary Dr. Cohen director of extension work Dr. Chente Vásquez psychiatrist [facility] COURSE: Patient admitted to telemetry floor. Patient started on treatment for acute congestive heart failure.. Urgent hemodialysis was arranged as per director of extension work. [facility] Nurse followed. Antiplatelet therapy with aspirin , beta kenna and statin were continued. Blood pressure was managed with calcium channel kenna and beta-kenna , stabilized. Nitroglycerin was on board as needed. EKG revealed sinus rhythm, no acute ischemic changes Per clinic administrator, troponin elevation was possibly due to renal failure. Supplemental oxygen provided as needed to keep pulse oximetry above 92%. Pulmonary toilet provided as needed. CT of the chest revealed no evidence of pulmonary emboli . Hemodialysis provided as per director of extension work with ultrafiltration and close monitoring of cardiorenal parameters and electrolytes. Electrolytes corrected as needed. DVT prophylaxis provided. Blood sugar was managed with 70/30 insulin and sliding scale of insulin as needed. Bowel regimen instituted. Supportive care provided. Psychiatrist closely followed and diagnosed patient with anxiety disorder. Reality orientation and supportive therapy provided. Anxiolytic were on board as needed Patient clinically stabilized and was ready for discharge home. Follow-up with outpatient hemodialysis as scheduled. Patient was reminded to be compliant with hemodialysis schedule. FINAL DIAGNOSES: Acute on chronic CHF with diastolic dysfunction Pulmonary edema due to fluid overload Hypertensive urgency -resolved Diabetes mellitus type 2 with diabetic nephropathy and diabetic retinopathy Morbid obesity Elevated troponin likely due to renal disease End-stage renal disease, on hemodialysis DISCHARGE MEDICATIONS: See Medication Reconciliation list. DISCHARGE INSTRUCTIONS: Patient was discharged home . Follow up with primary care provider in one week. [] Ingrid Tello NP Jan 30, 2018 12:23
== END 2018-01-28 17:45 | disposition home or self-care (01) | DRG 291 ==
LOC: 2E 15:09
PROC: 5A1D70Z Performance of Urinary Filtration, Intermittent, Less than 6 Hours Per Day (ICD-10-PCS; principal; 2018-01-24)
DX: I13.2 Hypertensive heart and chronic kidney disease with heart failure and with stage 5 chronic kidney disease, or end stage renal disease (principal); I50.33 Acute on chronic diastolic (congestive) heart failure; N18.6 End stage renal disease; E11.22 Type 2 diabetes mellitus with diabetic chronic kidney disease; Z99.2 Dependence on renal dialysis; Z91.15 Patient's noncompliance with renal dialysis; E11.21 Type 2 diabetes mellitus with diabetic nephropathy; E11.319 Type 2 diabetes mellitus with unspecified diabetic retinopathy without macular edema; E66.01 Morbid (severe) obesity due to excess calories; I16.0 Hypertensive urgency; Z79.4 Long term (current) use of insulin
CPT/HCPCS: 36415; 71045; 80048; 82465; 82947; 82962; 83735; 83880; 84100; 84484; 85025; 87081; 93306; 94664; 94760; J1815

== ENCOUNTER 2019-04-17 11:43 | Inpatient (IN) | payer MEDICARE, OTHER ==
[~2019-04-17] VITALS: Ht 154.9 cm; Wt 68.0 kg
[~2019-04-17 11:43] MED LIST: ASPIRIN81 MG ORAL; CALCIUM ACETAT667 M1 PO; CARDIZEM60 MG ORAL; CARVEDILOL6.25 MG ORAL; CLARITIN10 M2 ORAL; FOLIC ACID1 MG ORAL; FUROSEMIDE80 M1 ORAL; NOVOLIN 70100 UNIT/2 SQ; SIMVASTATIN20 MG ORAL; VITAMIN B COMP1 EAC5 PO
[2019-04-17 12:15] VITALS: BP 117/58
--- NOTE | 2019-04-17 12:42 | Emergency Room Report ---
History of Present Illness General Chief Complaint: Fever Source: Patient Present Illness HPI 63-year-old female history of diabetes, end-stage renal disease status post kidney transplant 8 months ago presented for fever. She has had fever for 2 days. Reports body aches, mild lower quadrant abdominal pain, diarrhea or urinary complaints. She denies any recent travel or sick contacts. Patient is followed by Dr. Gurrola from transplant nephrology. Allergies: Coded Allergies: No Known Allergies (Unverified , 01/24/18) Patient History Past Medical History: see triage record Last Menstrual Period: na Now: No Reviewed Nursing Documentation: PMH: Agreed; PSxH: Agreed Nursing Documentation-PMH Hx Cardiac Problems: Yes Hx Hypertension: Yes Hx Diabetes: Yes Hx Cancer: No Hx Gastrointestinal Problems: No Hx Dialysis: Yes - Left AV SHUNT Hx Neurological Problems: No Review of Systems All Other Systems: negative except mentioned in HPI Physical Exam Vital Signs Date Time Temp Pulse Resp B/P (MAP) Pulse Ox O2 Delivery O2 Flow Rate FiO2 04/17/19 11:54 102.4 90 20 117/58 (77) 97 Room Air Sp02 EP Interpretation: reviewed, normal General Appearance: well appearing, no apparent distress Head: normocephalic, atraumatic Eyes: bilateral eye PERRL, bilateral eye EOMI ENT: hearing grossly normal, moist mucus membranes Neck: full range of motion, supple Respiratory: lungs clear, normal breath sounds, no rhonchi, no respiratory distress, no retraction, no wheezing Cardiovascular #1: normal peripheral pulses, regular rate, rhythm, no murmur Gastrointestinal: soft, non-distended, no guarding, other - Mild right upper quadrant tenderness Genitourinary: no CVA tenderness Neurologic: alert, oriented x3, no focal defects Skin: normal color, warm/dry Medical Decision Making ER Course Differential included but not limited to viral syndrome, UTI, pneumonia, cholecystitis, retained gallstone, to name a few sepsis work-up initiated in the ER. Patient is a transplant patient on immunosuppression. Sepsis work-up initiated, IV fluids given, broad-spectrum antibiotics given, Tylenol given. On laboratory studies patient's LFTs were elevated, she does have a history of cholecystectomy. She did have pain in the right upper quadrant so ultrasound was ordered. At time of shift change patient pending urinalysis and ultrasound. Will plan for admission. Laboratory Tests Test 04/17/19 12:49 04/17/19 13:35 04/17/19 13:40 White Blood Count 13.5 K/UL (4.8-10.8) H Red Blood Count 3.98 M/UL (4.20-5.40) L Hemoglobin 11.3 G/DL (12.0-16.0) L Hematocrit 34.9 % (37.0-47.0) L Mean Corpuscular Volume 88 FL (80-99) Mean Corpuscular Hemoglobin 28.3 PG (27.0-31.0) Mean Corpuscular Hemoglobin Concent 32.3 G/DL (32.0-36.0) Red Cell Distribution Width 12.7 % (11.6-14.8) Platelet Count 167 K/UL (150-450) Mean Platelet Volume 6.9 FL (6.5-10.1) Neutrophils (%) (Auto) % (45.0-75.0) Lymphocytes (%) (Auto) % (20.0-45.0) Monocytes (%) (Auto) % (1.0-10.0) Eosinophils (%) (Auto) % (0.0-3.0) Basophils (%) (Auto) % (0.0-2.0) Differential Total Cells Counted 100 Neutrophils % (Manual) 84 % (45-75) H Lymphocytes % (Manual) 7 % (20-45) L Monocytes % (Manual) 8 % (1-10) Eosinophils % (Manual) 0 % (0-3) Basophils % (Manual) 1 % (0-2) Band Neutrophils 0 % (0-8) Platelet Estimate Adequate Platelet Morphology Normal Red Blood Cell Morphology Normal Prothrombin Time 11.5 SEC (9.30-11.50) Prothrombin Time INR 1.1 (0.9-1.1) Activated Partial Thromboplast Time 31 SEC (23-33) Sodium Level 138 MMOL/L (136-145) Potassium Level 4.3 MMOL/L (3.5-5.1) Chloride Level 99 MMOL/L (98-107) Carbon Dioxide Level 25 MMOL/L (21-32) Anion Gap 14 mmol/L (5-15) Blood Urea Nitrogen 28 mg/dL (7-18) H Creatinine 1.2 MG/DL (0.55-1.30) Estimate Glomerular Filtration Rate 45.1 mL/min (>60) Glucose Level 256 MG/DL (74-106) H Lactic Acid Level 2.20 mmol/L (0.4-2.0) H Pending Calcium Level 9.0 MG/DL (8.5-10.1) Total Bilirubin 0.8 MG/DL (0.2-1.0) Aspartate Amino Transferase (AST) 563 U/L (15-37) H Alanine Aminotransferase (ALT) 871 U/L (12-78) H Alkaline Phosphatase 373 U/L (46-116) H Total Protein 6.7 G/DL (6.4-8.2) Albumin 3.0 G/DL (3.4-5.0) L Globulin 3.7 g/dL Albumin/Globulin Ratio 0.8 (1.0-2.7) L Urine Color Pending Urine Appearance Pending Urine pH Pending Urine Specific [place] Pending Urine Protein Pending Urine Glucose (UA) Pending Urine Ketones Pending Urine Blood Pending Urine Nitrite Pending Urine Bilirubin Pending Urine Urobilinogen Pending Urine Leukocyte Esterase Pending Microbiology Date/Time Source Procedure Growth Status 04/17/19 12:20 Nasal Nares - Final Complete 04/17/19 12:20 Nasal Nares - Final Complete Last Vital Signs Date Time Temp Pulse Resp B/P (MAP) Pulse Ox O2 Delivery O2 Flow Rate FiO2 04/17/19 12:15 102.4 90 20 117/58 97 Room Air Disposition: ADMITTED INPATIENT Condition: Serious Signed Out To: Migue Randle M.D. Apr 17, 2019 12:41
[2019-04-17 13:18] LABS: HEMATOCRIT 34.9 % (37.0-47.0); HEMOGLOBIN 11.3 G/DL (12.0-16.0); MEAN CORPUSCULAR VOLUME 88 FL (80-99); PLATELET COUNT 167 K/UL (150-450); RED BLOOD COUNT 3.98 M/UL (4.20-5.40); RED CELL DISTRIBUTION WIDTH 12.7 % (11.6-14.8); WHITE BLOOD COUNT 13.5 K/UL (4.8-10.8)
[2019-04-17 13:19] LABS: INR 1.1 (0.9-1.1)
--- NOTE | 2019-04-17 13:38 | Diagnostic Imaging Report ---
Indication: Dyspnea Comparison: 01/25/2018 A single view chest radiograph was obtained. Findings: Mild pulmonary vascular congestion may be present. The hilar vessels are slightly prominent and vessels appear cephalized. No airspace or interstitial opacities are definitely seen. There is a left axillary stent. Bones are osteopenic. Heart is normal in size. IMPRESSION: Mild pulmonary vascular congestion, likely chronic
[2019-04-17 13:46] LABS: ANION GAP 14 mmol/L (5-15); BLOOD UREA NITROGEN 28 mg/dL (7-18); CARBON DIOXIDE 25 MMOL/L (21-32); CHLORIDE 99 MMOL/L (98-107); CREATININE 1.2 MG/DL (0.55-1.30); POTASSIUM 4.3 MMOL/L (3.5-5.1); SODIUM 138 MMOL/L (136-145)
[2019-04-17 13:50] LABS: ALANINE AMINOTRANSFERASE 871 U/L (12-78); ALBUMIN/GLOBULIN RATIO 0.8 (1.0-2.7); ALKALINE PHOSPHATASE 373 U/L (46-116); ASPARTATE AMINO TRANSFERASE 563 U/L (15-37); BILIRUBIN,TOTAL 0.8 MG/DL (0.2-1.0)
[2019-04-17 14:00] VITALS: BP 120/60
[2019-04-17] MEDS ORDERED: Cefepime HCl 2 GM in D5W 55 ML IVPB ONE (14:30)
[2019-04-17 14:35] LABS: APPEARANCE,URINE CLOUDY; BILIRUBIN, URINE NEGATIVE (NEGATIVE); COLOR,URINE BROWN; GLUCOSE, URINE (UA) 4+ (NEGATIVE); KETONES,URINE NEGATIVE (NEGATIVE); LEUKOCYTE ESTERASE ,URINE 1+ (NEGATIVE); NITRITE,URINE NEGATIVE (NEGATIVE); PH,URINE 5 (4.5-8.0); PROTEIN,URINE 2+ (NEGATIVE); UROBILINOGEN,URINE 1 MG/DL (0.0-1.0)
[2019-04-17] MEDS ORDERED: Nitroglycerin Subl 0.4mg tab SL PRN (16:15)
[2019-04-17] MEDS ORDERED: Albuterol/Ipratropium 3ml neb HHN PRN (16:15)
[2019-04-17] MEDS ORDERED: Miralax 17gm pkt ORAL PRN (16:15)
--- NOTE | 2019-04-17 16:42 | Diagnostic Imaging Report ---
INDICATION: Abdominal pain TECHNIQUE: Continuous helical transaxial imaging of the abdomen and pelvis was obtained from the lung bases to the pubic symphysis. No intravenous contrast was administered. Coronal 2-D reformats were also obtained. Automatic Exposure Control was utilized. Total Dose length Product (DLP): 346.[address] Dose Index Volume (CTDIvol): 7 mGy Comparison: none FINDINGS: Lungs: Mild reticular nodular densities noted at the lung bases as well as some is some groundglass opacities, nonspecific. There is calcification of the mitral valve. Aorta is calcified.. Liver: Unremarkable Gallbladder/biliary system: Gallbladder is absent. Cholecystectomy clips noted. No obvious biliary ductal dilatation seen.. Spleen: Unremarkable Pancreas: Pancreas is markedly atrophic. Kidneys/Bladder: [place] kidneys are atrophic and likely nonfunctional. There is no hydronephrosis.. A transplanted kidney is present in the left iliac fossa. The chest finding kidney is ill-defined with perinephric stranding. There is no hydronephrosis. ATN, pyelonephritis, acute or chronic rejection are not excluded. Please correlate clinically. Adrenal glands: Unremarkable Bowel: Bowel gas pattern is nonobstructive. Appendix is normal. Diverticula noted throughout the colon. Anastomotic sutures are noted in the mid and lower abdomen indicative of partial small bowel resection. Aorta/IVC: Extensive calcification of the aorta and iliac arteries noted. Peritoneum: There is a umbilical hernia containing fat measuring about 3 cm. There is no ascites or free fluid.. Bones: Generalized osteopenia demonstrated. IMPRESSION: Ill-defined appearance of a left iliac fossa renal allograft. Pyelonephritis of the transplanted kidney, acute or chronic rejection, and ATN may be considered in the differential diagnosis. Please correlate clinically. No abscess or evidence of ascites. Evidence of previous partial small bowel resection in the mid to lower abdomen. Status post cholecystectomy. Diverticulosis of the colon. Osteoporosis Umbilical hernia containing fat Normal appendix Note: Evaluation of solid organs is limited on non contrast imaging. The CT scanner at [facility] is accredited by the [employer] and the scans are performed using dose optimization techniques as appropriate to a performed exam including Automatic Exposure control.
--- NOTE | 2019-04-17 16:53 | Diagnostic Imaging Report ---
Indication: Abdominal pain Technique: Grayscale and duplex Doppler imaging of the abdomen performed. Comparison: None Findings: The liver is unremarkable. Doppler interrogation of the main portal vein shows patency with hepatopedal, monophasic flow. There is no biliary ductal dilatation identified. Gallbladder is absent. CBD is 5 mm in diameter. There demonstrated part of the pancreas, aorta and IVC show no definite abnormalities. A left renal allograft demonstrated in the left iliac fossa. Morphologically grayscale images the kidney appears normal. There are no perinephric fluid collections or hydronephrosis. Duplex Doppler sampling of the arterial structures in the kidney demonstrate borderline findings with borderline increased resistive indices, lowest being around 0.76 up to 1.0. This suggests a slightly higher resistance blood flow pattern to the transplanted kidney which may be a sign of rejection. The possibility of chronic or acute on chronic rejection may be considered. Please correlate clinically. The [place] kidneys are poorly seen and echogenic consistent with end-stage renal disease. There is no hydronephrosis. IMPRESSION: Borderline findings on duplex Doppler examination of the left renal allograft suggesting possibility of rejection. Please correlate clinically. Status post cholecystectomy
[2019-04-17 17:15] VITALS: BP 121/66
[2019-04-17] MEDS ORDERED: Vancomycin 1 GM in D5W 275 ML IVPB ONE (18:00)
[2019-04-17] MEDS: NovoLOG Insulin Flexpen SUBQ SCH ×2 (18:12→21:28)
[2019-04-17 20:00] VITALS: BP 131/49
[2019-04-17] MEDS ORDERED: PROTONIX40 MG ORAL (20:26)
[2019-04-17] MEDS ORDERED: ELIQUIS5 MG PO (20:26)
[2019-04-17] MEDS ORDERED: PREDNISONE2.5 MG ORAL (20:26)
[2019-04-17] MEDS ORDERED: MYFORTIC180 MG PO (20:26)
[2019-04-17] MEDS: Carvedilol 6.25mg Tab ORAL SCH (21:06)
[2019-04-17] MEDS: Heparin 5000 units/ml inj SUBQ SCH (21:10)
[2019-04-17] MEDS ORDERED: PROGRAF0.5 MG PO (21:48)
[2019-04-18 00:52] VITALS: BP 122/40
[2019-04-18 04:00] VITALS: BP 119/46
[2019-04-18] MEDS: NovoLOG Insulin Flexpen SUBQ SCH ×4 (05:58→21:38)
[2019-04-18 06:37] LABS: BASOPHILS % (AUTO) 0.7 % (0.0-2.0); EOSINOPHILS % (AUTO) 0.1 % (0.0-3.0); HEMATOCRIT 32.2 % (37.0-47.0); HEMOGLOBIN 10.7 G/DL (12.0-16.0); LYMPHOCYTES % (AUTO) 7.7 % (20.0-45.0); MEAN CORPUSCULAR VOLUME 88 FL (80-99); MONOCYTES % (AUTO) 11.2 % (1.0-10.0); NEUTROPHILS % (AUTO) 80.4 % (45.0-75.0); PLATELET COUNT 153 K/UL (150-450); RED BLOOD COUNT 3.67 M/UL (4.20-5.40); RED CELL DISTRIBUTION WIDTH 13.3 % (11.6-14.8); WHITE BLOOD COUNT 12.4 K/UL (4.8-10.8)
[2019-04-18 07:03] LABS: ALANINE AMINOTRANSFERASE 483 U/L (12-78); ALBUMIN 2.3 G/DL (3.4-5.0); ALBUMIN/GLOBULIN RATIO 0.7 (1.0-2.7); ALKALINE PHOSPHATASE 270 U/L (46-116); ANION GAP 10 mmol/L (5-15); ASPARTATE AMINO TRANSFERASE 180 U/L (15-37); BILIRUBIN,TOTAL 0.6 MG/DL (0.2-1.0); BLOOD UREA NITROGEN 25 mg/dL (7-18); CALCIUM 8.8 MG/DL (8.5-10.1); CARBON DIOXIDE 22 MMOL/L (21-32); CHLORIDE 103 MMOL/L (98-107); CREATININE 1.2 MG/DL (0.55-1.30); POTASSIUM 3.5 MMOL/L (3.5-5.1); SODIUM 135 MMOL/L (136-145)
[2019-04-18 08:00] VITALS: BP 122/77
[2019-04-18] MEDS ORDERED: Aspirin Baby 81mg ORAL SCH (09:00)
[2019-04-18] MEDS: dilTIAZem HCl 60mg tab ORAL SCH (09:30)
[2019-04-18] MEDS: Carvedilol 6.25mg Tab ORAL SCH ×2 (09:31→21:31)
[2019-04-18] MEDS: Heparin 5000 units/ml inj SUBQ SCH (09:31)
[2019-04-18] MEDS ORDERED: FUROSEMIDE20 M1 ORAL (11:15)
[2019-04-18] MEDS ORDERED: MULTIVITAMINS1 EAC2 ORAL (11:17)
[2019-04-18] MEDS ORDERED: NORVASC2.5 MG ORAL (11:18)
[2019-04-18] MEDS ORDERED: CLONIDINE 0.2M0.2 MG PO (11:20)
[2019-04-18] MEDS ORDERED: LANTUS SOL100 UNIT/1 SUBQ (11:21)
[2019-04-18] MEDS ORDERED: NOVOLOG100 UNIT/4 SQ ×2 (11:28→11:31)
[2019-04-18] MEDS ORDERED: cloNIDine 0.2mg Tab ORAL PRN (11:45)
--- NOTE | 2019-04-18 11:58 | Consultation ---
History of Present Illness General Date patient seen: Apr 18, 2019 Chief Complaint: Fever Present Illness HPI 63-year-old female with history of diabetes, end-stage renal disease status post kidney transplant 8 months ago presented to ER with CC of fever for the last 2 days. Reports body aches, mild lower quadrant abdominal pain, diarrhea or urinary complaints. she is admitted for further management. Allergies: Coded Allergies: No Known Allergies (Unverified , 01/24/18) Medication History Scheduled Amlodipine Besylate (Norvasc), 2.5 MG ORAL BID, (Reported) Apixaban (Eliquis), 5 MG PO EVERY OTHER DAY, (Reported) Carvedilol* (Carvedilol*), 6.25 MG ORAL EVERY 12 HOURS, (Reported) Diltiazem Hcl* (Cardizem*), 60 MG ORAL DAILY, (Reported) Folic Acid* (Folic Acid*), 1 MG ORAL DAILY, (Reported) Furosemide* (Lasix*), 20 MG ORAL DAILY, (Reported) Insulin Aspart (Novolog), 4 UNIT SQ AC, (Reported) Insulin Aspart (Novolog), 0 SQ AC, (Reported) Insulin Glargine (Lantus), 12 UNITS SUBQ BEDTIME, (Reported) Multivitamins* (Multivitamins*), 1 TAB ORAL DAILY, (Reported) Mycophenolate Sodium (Myfortic), 180 MG PO BID, (Reported) Pantoprazole* (Protonix*), 40 MG ORAL DAILY, (Reported) Prednisone* (Prednisone*), 2.5 MG ORAL DAILY, (Reported) Tacrolimus (Prograf), 0.5 MG PO BID, (Reported) Scheduled PRN Clonidine HCl (Clonidine HCl), 0.2 MG PO Q4HR PRN for systolic blood pressure > 145, (Reported) Discontinued Medications Insulin NPH Hum/Reg Insulin Hm (Novolin 70-30 Flexpen), 18 UNIT SQ DAILY, ( Reported) Discontinued Reason: Pt stopped taking med Insulin NPH Hum/Reg Insulin Hm (Novolin 70-30 Flexpen), 10 UNIT SQ QHS, ( Reported) Discontinued Reason: Pt stopped taking med Loratadine (Claritin), 10 MG ORAL DAILY, (Reported) Discontinued Reason: Pt stopped taking med Simvastatin (Zocor), 20 MG ORAL BEDTIME, (Reported) Discontinued Reason: Pt stopped taking med Patient History Healthcare decision maker Resuscitation status Full Code Advanced Directive on File Past Medical/Surgical History Past Medical/Surgical History: (1) Diabetes mellitus (2) History of hypertension (3) Renal transplant recipient Review of Systems Constitutional: Reports: no symptoms Eye: Reports: no symptoms ENT: Reports: no symptoms Physical Exam General Appearance: WD/WN, no apparent distress Lines, tubes and drains: peripheral HEENT: normocephalic, atraumatic Neck: non-tender, normal alignment Respiratory/Chest: chest wall non-tender, lungs clear Breasts: no masses Cardiovascular/Chest: normal peripheral pulses Abdomen: normal bowel sounds, non tender Genitourinary/Rectal: normal genital exam Extremities: normal range of motion Skin Exam: normal pigmentation Last 24 Hour Vital Signs Date Time Temp Pulse Resp B/P (MAP) Pulse Ox O2 Delivery O2 Flow Rate FiO2 04/18/19 09:31 66 122/77 04/18/19 09:30 66 122/77 04/18/19 08:00 97.9 66 18 122/77 (92) 95 04/18/19 04:00 100.3 84 20 119/46 (70) 96 04/18/19 03:43 100.3 04/18/19 00:52 100.1 83 20 122/40 (67) 94 04/17/19 21:06 91 137/49 04/17/19 21:00 Room Air 04/17/19 20:21 Room Air 04/17/19 20:00 97.3 91 20 131/49 (76) 97 04/17/19 17:15 98.2 76 20 121/66 (84) 97 04/17/19 16:36 99.5 88 20 120/60 97 Room Air 04/17/19 14:00 99.5 88 20 120/60 97 Room Air 04/17/19 13:59 99.5 04/17/19 12:15 102.4 90 20 117/58 97 Room Air 04/17/19 12:12 90 20 Room Air 04/17/19 11:54 102.4 90 20 117/58 (77) 97 Room Air Intake and Output 04/17/19 04/18/19 19:00 07:00 Intake Total 120 ml 120 ml Balance 120 ml 120 ml Intake Oral 120 ml 120 ml # Voids 1 4 # Bowel Movements 1 Laboratory Tests Test 04/17/19 12:49 04/17/19 13:35 04/17/19 13:40 04/18/19 05:20 White Blood Count 13.5 K/UL (4.8-10.8) H 12.4 K/UL (4.8-10.8) H Red Blood Count 3.98 M/UL (4.20-5.40) L 3.67 M/UL (4.20-5.40) L Hemoglobin 11.3 G/DL (12.0-16.0) L 10.7 G/DL (12.0-16.0) L Hematocrit 34.9 % (37.0-47.0) L 32.2 % (37.0-47.0) L Mean Corpuscular Volume 88 FL (80-99) 88 FL (80-99) Mean Corpuscular Hemoglobin 28.3 PG (27.0-31.0) 29.2 PG (27.0-31.0) Mean Corpuscular Hemoglobin Concent 32.3 G/DL (32.0-36.0) 33.3 G/DL (32.0-36.0) Red Cell Distribution Width 12.7 % (11.6-14.8) 13.3 % (11.6-14.8) Platelet Count 167 K/UL (150-450) 153 K/UL (150-450) Mean Platelet Volume 6.9 FL (6.5-10.1) 6.8 FL (6.5-10.1) Neutrophils (%) (Auto) % (45.0-75.0) 80.4 % (45.0-75.0) H Lymphocytes (%) (Auto) % (20.0-45.0) 7.7 % (20.0-45.0) L Monocytes (%) (Auto) % (1.0-10.0) 11.2 % (1.0-10.0) H Eosinophils (%) (Auto) % (0.0-3.0) 0.1 % (0.0-3.0) Basophils (%) (Auto) % (0.0-2.0) 0.7 % (0.0-2.0) Differential Total Cells Counted 100 Neutrophils % (Manual) 84 % (45-75) H Lymphocytes % (Manual) 7 % (20-45) L Monocytes % (Manual) 8 % (1-10) Eosinophils % (Manual) 0 % (0-3) Basophils % (Manual) 1 % (0-2) Band Neutrophils 0 % (0-8) Platelet Estimate Adequate Platelet Morphology Normal Red Blood Cell Morphology Normal Prothrombin Time 11.5 SEC (9.30-11.50) Prothromb Time International Ratio 1.1 (0.9-1.1) Activated Partial Thromboplast Time 31 SEC (23-33) Sodium Level 138 MMOL/L (136-145) 135 MMOL/L (136-145) L Potassium Level 4.3 MMOL/L (3.5-5.1) 3.5 MMOL/L (3.5-5.1) Chloride Level 99 MMOL/L (98-107) 103 MMOL/L (98-107) Carbon Dioxide Level 25 MMOL/L (21-32) 22 MMOL/L (21-32) Anion Gap 14 mmol/L (5-15) 10 mmol/L (5-15) Blood Urea Nitrogen 28 mg/dL (7-18) H 25 mg/dL (7-18) H Creatinine 1.2 MG/DL (0.55-1.30) 1.2 MG/DL (0.55-1.30) Estimat Glomerular Filtration Rate 45.1 mL/min (>60) 45.1 mL/min (>60) Glucose Level 256 MG/DL (74-106) H 101 MG/DL (74-106) # Lactic Acid Level 2.20 mmol/L (0.4-2.0) H 1.30 mmol/L (0.66-2.22) Calcium Level 9.0 MG/DL (8.5-10.1) 8.8 MG/DL (8.5-10.1) Total Bilirubin 0.8 MG/DL (0.2-1.0) 0.6 MG/DL (0.2-1.0) Aspartate Amino Transf (AST/SGOT) 563 U/L (15-37) H 180 U/L (15-37) H Alanine Aminotransferase (ALT/SGPT) 871 U/L (12-78) H 483 U/L (12-78) H Alkaline Phosphatase 373 U/L (46-116) H 270 U/L (46-116) H Total Protein 6.7 G/DL (6.4-8.2) 5.7 G/DL (6.4-8.2) L Albumin 3.0 G/DL (3.4-5.0) L 2.3 G/DL (3.4-5.0) L Globulin 3.7 g/dL 3.4 g/dL Albumin/Globulin Ratio 0.8 (1.0-2.7) L 0.7 (1.0-2.7) L Urine Color Brown Urine Appearance Cloudy Urine pH 5 (4.5-8.0) Urine Specific Taylor 1.020 (1.005-1.035) Urine Protein 2+ (NEGATIVE) H Urine Glucose (UA) 4+ (NEGATIVE) H Urine Ketones Negative (NEGATIVE) Urine Blood 3+ (NEGATIVE) H Urine Nitrite Negative (NEGATIVE) Urine Bilirubin Negative (NEGATIVE) Urine Urobilinogen 1 MG/DL (0.0-1.0) H Urine Leukocyte Esterase 1+ (NEGATIVE) H Urine RBC 10-15 /HPF (0 - 2) H Urine WBC 20-30 /HPF (0 - 2) H Urine Squamous Epithelial Cells Moderate /LPF (NONE/OCC) H Urine Bacteria Many /HPF (NONE) H Microbiology Date/Time Source Procedure Growth Status 04/17/19 12:20 Nasal Nares - Final Complete 04/17/19 12:20 Nasal Nares - Final Complete 04/17/19 13:35 Urine,Clean Catch Urine Culture - Preliminary Gram Negative Bacillus 1 Resulted Height (Feet): 5 Height (Inches): 1.00 Weight (Pounds): 150 Medications Current Medications Medications (Trade) Dose Ordered Sig/Jose Route PRN Reason Start Time Stop Time Status Last Admin Dose Admin Acetaminophen (Tylenol) 650 mg Q4H PRN ORAL fever 04/17/19 16:15 05/17/19 16:14 04/18/19 03:13 Albuterol/ Ipratropium (Albuterol/ Ipratropium) 3 ml Q4H PRN HHN Shortness of Breath 04/17/19 16:15 04/22/19 16:14 Carvedilol (Coreg) 6.25 mg EVERY 12 HOURS ORAL 04/17/19 21:00 05/17/19 20:59 04/18/19 09:31 Cefepime HCl 2 gm/ Dextrose 110 ml @ 220 mls/hr Q24H IV 04/18/19 15:00 04/25/19 14:59 Dextrose (Dextrose 50%) 25 ml Q30M PRN IV Hypoglycemia 04/17/19 16:15 05/17/19 16:14 Dextrose (Dextrose 50%) 50 ml Q30M PRN IV Hypoglycemia 04/17/19 16:15 05/17/19 16:14 Diltiazem HCl (Cardizem) 60 mg DAILY ORAL 04/18/19 09:00 05/18/19 08:59 04/18/19 09:30 Heparin Sodium (Porcine) (Heparin 5000 units/ml) 5,000 units EVERY 12 HOURS SUBQ 04/17/19 21:00 05/17/19 20:59 04/18/19 09:31 Insulin Aspart (NovoLOG) BEFORE MEALS AND HS SUBQ 04/17/19 16:30 05/17/19 16:29 04/17/19 21:28 Nitroglycerin (Ntg) 0.4 mg Q5M PRN SL Prn Chest Pain 04/17/19 16:15 05/17/19 16:14 Ondansetron HCl (Zofran) 4 mg Q6H PRN IVP Nausea & Vomiting 04/17/19 16:15 05/17/19 16:14 Polyethylene Glycol (Miralax) 17 gm DAILYPRN PRN ORAL Constipation 04/17/19 16:15 05/17/19 16:14 Temazepam (Restoril) 15 mg HSPRN PRN ORAL Insomnia 04/17/19 16:15 04/24/19 16:14 Vancomycin HCl (Vanco rx to dose) 1 ea DAILY PRN MISC Per rx protocol 04/17/19 17:00 05/17/19 16:59 Assessment/Plan Problem List: (1) Urosepsis ICD Codes: A41.9 - Sepsis, unspecified organism; N39.0 - Urinary tract infection, site not specified SNOMED: 084427036 (2) ESRD (end stage renal disease) on dialysis ICD Codes: N18.6 - End stage renal disease; Z99.2 - Dependence on renal dialysis SNOMED: 152509600 (3) Renal transplant recipient ICD Codes: Z94.0 - Kidney transplant status SNOMED: 136339575 (4) Hypertension ICD Codes: I10 - Essential (primary) hypertension SNOMED: 02340496 (5) Diabetes mellitus ICD Codes: E11.9 - Type 2 diabetes mellitus without complications SNOMED: 68610372 Assessment/Plan: omalley culture iv abx resume anti-rejection meds sliding scale diabetic diet dvt prophylaxis Scotty Cohen MD Apr 18, 2019 11:58
[2019-04-18 12:04] VITALS: BP 112/78
[2019-04-18 13:06] LABS: CHOLESTEROL 141 MG/DL (< 200); CREATINE KINASE 179 U/L (26-308); GAMMA GLUTAMYL TRANSPEPTIDASE 260 U/L (5-85); HDL CHOLESTEROL 44 MG/DL (40-60); PHOSPHORUS 2.9 MG/DL (2.5-4.9); TRIGLYCERIDES 129 MG/DL (30-150)
[2019-04-18 13:14] LABS: % IRON SATURATION 12 % (15-50); IRON 14 ug/dL (50-175); TOTAL IRON BINDING CAPACITY 115 ug/dL (250-450)
--- NOTE | 2019-04-18 14:06 | Infectious Diseases Prog Note ---
Subjective Allergies: Coded Allergies: No Known Allergies (Unverified , 01/24/18) Subjective # [id number] Objective Vital Signs Last 24 Hour Vital Signs Date Time Temp Pulse Resp B/P (MAP) Pulse Ox O2 Delivery O2 Flow Rate FiO2 04/18/19 09:31 66 122/77 04/18/19 09:30 66 122/77 04/18/19 08:00 97.9 66 18 122/77 (92) 95 04/18/19 04:00 100.3 84 20 119/46 (70) 96 04/18/19 03:43 100.3 04/18/19 00:52 100.1 83 20 122/40 (67) 94 04/17/19 21:06 91 137/49 04/17/19 21:00 Room Air 04/17/19 20:21 Room Air 04/17/19 20:00 97.3 91 20 131/49 (76) 97 04/17/19 17:15 98.2 76 20 121/66 (84) 97 04/17/19 16:36 99.5 88 20 120/60 97 Room Air Height (Feet): 5 Height (Inches): 1.00 Weight (Pounds): 150 Microbiology Date/Time Source Procedure Growth Status 04/17/19 12:20 Nasal Nares - Final Complete 04/17/19 12:20 Nasal Nares - Final Complete 04/17/19 13:35 Urine,Clean Catch Urine Culture - Preliminary Gram Negative Bacillus 1 Resulted Laboratory Tests Test 04/18/19 05:20 White Blood Count 12.4 K/UL (4.8-10.8) H Red Blood Count 3.67 M/UL (4.20-5.40) L Hemoglobin 10.7 G/DL (12.0-16.0) L Hematocrit 32.2 % (37.0-47.0) L Mean Corpuscular Volume 88 FL (80-99) Mean Corpuscular Hemoglobin 29.2 PG (27.0-31.0) Mean Corpuscular Hemoglobin Concent 33.3 G/DL (32.0-36.0) Red Cell Distribution Width 13.3 % (11.6-14.8) Platelet Count 153 K/UL (150-450) Mean Platelet Volume 6.8 FL (6.5-10.1) Neutrophils (%) (Auto) 80.4 % (45.0-75.0) H Lymphocytes (%) (Auto) 7.7 % (20.0-45.0) L Monocytes (%) (Auto) 11.2 % (1.0-10.0) H Eosinophils (%) (Auto) 0.1 % (0.0-3.0) Basophils (%) (Auto) 0.7 % (0.0-2.0) Sodium Level 135 MMOL/L (136-145) L Potassium Level 3.5 MMOL/L (3.5-5.1) Chloride Level 103 MMOL/L (98-107) Carbon Dioxide Level 22 MMOL/L (21-32) Anion Gap 10 mmol/L (5-15) Blood Urea Nitrogen 25 mg/dL (7-18) H Creatinine 1.2 MG/DL (0.55-1.30) Estimat Glomerular Filtration Rate 45.1 mL/min (>60) Glucose Level 101 MG/DL (74-106) # Uric Acid 4.8 MG/DL (2.6-7.2) Calcium Level 8.8 MG/DL (8.5-10.1) Phosphorus Level 2.9 MG/DL (2.5-4.9) Magnesium Level 1.6 MG/DL (1.8-2.4) L Iron Level 14 ug/dL (50-175) L Total Iron Binding Capacity 115 ug/dL (250-450) L Percent Iron Saturation 12 % (15-50) L Unsaturated Iron Binding 101 ug/dL (112-346) L Ferritin Pending Total Bilirubin 0.6 MG/DL (0.2-1.0) Gamma Glutamyl Transpeptidase 260 U/L (5-85) H Aspartate Amino Transf (AST/SGOT) 180 U/L (15-37) H Alanine Aminotransferase (ALT/SGPT) 483 U/L (12-78) H Alkaline Phosphatase 270 U/L (46-116) H Total Creatine Kinase 179 U/L (26-308) C-Reactive Protein, Quantitative 29.6 mg/dL (0.00-0.90) H Total Protein 5.7 G/DL (6.4-8.2) L Albumin 2.3 G/DL (3.4-5.0) L Globulin 3.4 g/dL Albumin/Globulin Ratio 0.7 (1.0-2.7) L Triglycerides Level 129 MG/DL (30-150) Cholesterol Level 141 MG/DL (< 200) LDL Cholesterol 62 mg/dL (<100) HDL Cholesterol 44 MG/DL (40-60) Cholesterol/HDL Ratio 3.2 (3.3-4.4) L Vitamin B12 Level 531 PG/ML (193-986) Folate 24.6 NG/ML (8.6-58.9) Current Medications Medications (Trade) Dose Ordered Sig/Jose Route PRN Reason Start Time Stop Time Status Last Admin Dose Admin Acetaminophen (Tylenol) 650 mg Q4H PRN ORAL fever 04/17/19 16:15 05/17/19 16:14 04/18/19 03:13 Albuterol/ Ipratropium (Albuterol/ Ipratropium) 3 ml Q4H PRN HHN Shortness of Breath 04/17/19 16:15 04/22/19 16:14 Amlodipine Besylate (Norvasc) 2.5 mg BID ORAL 04/18/19 18:00 05/18/19 17:59 Apixaban (Eliquis) 5 mg EVERY OTHER DAY ORAL 04/20/19 09:00 05/20/19 08:59 Carvedilol (Coreg) 6.25 mg EVERY 12 HOURS ORAL 04/17/19 21:00 05/17/19 20:59 04/18/19 09:31 Cefepime HCl 2 gm/ Dextrose 110 ml @ 220 mls/hr Q24H IV 04/18/19 15:00 04/25/19 14:59 Clonidine HCl (Catapres tab) 0.2 mg Q4H PRN ORAL systolic blood pressure >145 04/18/19 11:45 05/18/19 11:44 Dextrose (Dextrose 50%) 25 ml Q30M PRN IV Hypoglycemia 04/17/19 16:15 05/17/19 16:14 Dextrose (Dextrose 50%) 50 ml Q30M PRN IV Hypoglycemia 04/17/19 16:15 05/17/19 16:14 Diltiazem HCl (Cardizem) 60 mg DAILY ORAL 04/18/19 09:00 05/18/19 08:59 04/18/19 09:30 Folic Acid (Folate) 1 mg DAILY ORAL 04/19/19 09:00 05/19/19 08:59 Furosemide (Lasix) 20 mg DAILY ORAL 04/19/19 09:00 05/19/19 08:59 Insulin Aspart (NovoLOG) BEFORE MEALS AND HS SUBQ 04/17/19 16:30 05/17/19 16:29 04/18/19 12:31 Multivitamins (Multivitamins) 1 tab DAILY ORAL 04/19/19 09:00 05/19/19 08:59 Nitroglycerin (Ntg) 0.4 mg Q5M PRN SL Prn Chest Pain 04/17/19 16:15 05/17/19 16:14 Ondansetron HCl (Zofran) 4 mg Q6H PRN IVP Nausea & Vomiting 04/17/19 16:15 05/17/19 16:14 Pantoprazole (Protonix) 40 mg DAILY ORAL 04/19/19 09:00 05/19/19 08:59 Polyethylene Glycol (Miralax) 17 gm DAILYPRN PRN ORAL Constipation 04/17/19 16:15 05/17/19 16:14 Tacrolimus (Prograf) 0.5 mg BID ORAL 04/18/19 11:45 05/18/19 11:44 04/18/19 13:58 Temazepam (Restoril) 15 mg HSPRN PRN ORAL Insomnia 04/17/19 16:15 04/24/19 16:14 Vancomycin HCl (Vanco rx to dose) 1 ea DAILY PRN MISC Per rx protocol 04/17/19 17:00 05/17/19 16:59 Carl Dutton MD Apr 18, 2019 14:06
--- NOTE | 2019-04-18 14:24 | History and Physical ---
History of Present Illness General Date patient seen: Apr 18, 2019 Time patient seen: 14:00 Reason for Hospitalization: Fever Present Illness HPI 63-year-old female history of diabetes, end-stage renal disease status post kidney transplant 8 months ago who presented for fever to the ER on 04/17/19. She reported had fever for 2 days prior to admission. Reports body aches, mild lower quadrant abdominal pain, diarrhea or urinary complaints. She denies any recent travel or sick contacts. Patient is followed by Dr. Gurrola from transplant nephrology. She was admitted and started on Vancomycin and Cefepime. Her Lactate was 2.2 and LFT elevated with AST 563 now 180 and ALT 871 now 483, AP 373 and now 270. Admission was requested and UA was positive for UTI. The patient has been complain with her myfortic and Tracolimus at home. Allergies: Coded Allergies: No Known Allergies (Unverified , 01/24/18) Medication History Scheduled Amlodipine Besylate (Norvasc), 2.5 MG ORAL BID, (Reported) Apixaban (Eliquis), 5 MG PO EVERY OTHER DAY, (Reported) Carvedilol* (Carvedilol*), 6.25 MG ORAL EVERY 12 HOURS, (Reported) Diltiazem Hcl* (Cardizem*), 60 MG ORAL DAILY, (Reported) Folic Acid* (Folic Acid*), 1 MG ORAL DAILY, (Reported) Furosemide* (Lasix*), 20 MG ORAL DAILY, (Reported) Insulin Aspart (Novolog), 4 UNIT SQ AC, (Reported) Insulin Aspart (Novolog), 0 SQ AC, (Reported) Insulin Glargine (Lantus), 12 UNITS SUBQ BEDTIME, (Reported) Multivitamins* (Multivitamins*), 1 TAB ORAL DAILY, (Reported) Mycophenolate Sodium (Myfortic), 180 MG PO BID, (Reported) Pantoprazole* (Protonix*), 40 MG ORAL DAILY, (Reported) Prednisone* (Prednisone*), 2.5 MG ORAL DAILY, (Reported) Tacrolimus (Prograf), 0.5 MG PO BID, (Reported) Scheduled PRN Clonidine HCl (Clonidine HCl), 0.2 MG PO Q4HR PRN for systolic blood pressure > 145, (Reported) Discontinued Medications Insulin NPH Hum/Reg Insulin Hm (Novolin 70-30 Flexpen), 18 UNIT SQ DAILY, ( Reported) Discontinued Reason: Pt stopped taking med Insulin NPH Hum/Reg Insulin Hm (Novolin 70-30 Flexpen), 10 UNIT SQ QHS, ( Reported) Discontinued Reason: Pt stopped taking med Loratadine (Claritin), 10 MG ORAL DAILY, (Reported) Discontinued Reason: Pt stopped taking med Simvastatin (Zocor), 20 MG ORAL BEDTIME, (Reported) Discontinued Reason: Pt stopped taking med Patient History Healthcare decision maker Resuscitation status Full Code Advanced Directive on File Review of Systems All Other Systems: negative except mentioned in HPI ROS Narrative CVAT is present. Denies fever or chills today. Tolerating diet. Physical Exam General Appearance: WD/WN Lines, tubes and drains: peripheral HEENT: normocephalic, atraumatic Neck: non-tender Respiratory/Chest: chest wall non-tender, lungs clear Cardiovascular/Chest: normal rate Abdomen: non tender Genitourinary/Rectal: other - CVAT in the R Extremities: normal range of motion, non-tender Neurologic: triple valve mechanic II-XII grossly normal Last 24 Hour Vital Signs Date Time Temp Pulse Resp B/P (MAP) Pulse Ox O2 Delivery O2 Flow Rate FiO2 04/18/19 09:31 66 122/77 04/18/19 09:30 66 122/77 04/18/19 08:00 97.9 66 18 122/77 (92) 95 04/18/19 04:00 100.3 84 20 119/46 (70) 96 04/18/19 03:43 100.3 04/18/19 00:52 100.1 83 20 122/40 (67) 94 04/17/19 21:06 91 137/49 04/17/19 21:00 Room Air 04/17/19 20:21 Room Air 04/17/19 20:00 97.3 91 20 131/49 (76) 97 04/17/19 17:15 98.2 76 20 121/66 (84) 97 04/17/19 16:36 99.5 88 20 120/60 97 Room Air Intake and Output 04/17/19 04/18/19 19:00 07:00 Intake Total 120 ml 120 ml Balance 120 ml 120 ml Intake Oral 120 ml 120 ml # Voids 1 4 # Bowel Movements 1 Laboratory Tests Test 04/18/19 05:20 White Blood Count 12.4 K/UL (4.8-10.8) H Red Blood Count 3.67 M/UL (4.20-5.40) L Hemoglobin 10.7 G/DL (12.0-16.0) L Hematocrit 32.2 % (37.0-47.0) L Mean Corpuscular Volume 88 FL (80-99) Mean Corpuscular Hemoglobin 29.2 PG (27.0-31.0) Mean Corpuscular Hemoglobin Concent 33.3 G/DL (32.0-36.0) Red Cell Distribution Width 13.3 % (11.6-14.8) Platelet Count 153 K/UL (150-450) Mean Platelet Volume 6.8 FL (6.5-10.1) Neutrophils (%) (Auto) 80.4 % (45.0-75.0) H Lymphocytes (%) (Auto) 7.7 % (20.0-45.0) L Monocytes (%) (Auto) 11.2 % (1.0-10.0) H Eosinophils (%) (Auto) 0.1 % (0.0-3.0) Basophils (%) (Auto) 0.7 % (0.0-2.0) Sodium Level 135 MMOL/L (136-145) L Potassium Level 3.5 MMOL/L (3.5-5.1) Chloride Level 103 MMOL/L (98-107) Carbon Dioxide Level 22 MMOL/L (21-32) Anion Gap 10 mmol/L (5-15) Blood Urea Nitrogen 25 mg/dL (7-18) H Creatinine 1.2 MG/DL (0.55-1.30) Estimat Glomerular Filtration Rate 45.1 mL/min (>60) Glucose Level 101 MG/DL (74-106) # Uric Acid 4.8 MG/DL (2.6-7.2) Calcium Level 8.8 MG/DL (8.5-10.1) Phosphorus Level 2.9 MG/DL (2.5-4.9) Magnesium Level 1.6 MG/DL (1.8-2.4) L Iron Level 14 ug/dL (50-175) L Total Iron Binding Capacity 115 ug/dL (250-450) L Percent Iron Saturation 12 % (15-50) L Unsaturated Iron Binding 101 ug/dL (112-346) L Ferritin Pending Total Bilirubin 0.6 MG/DL (0.2-1.0) Gamma Glutamyl Transpeptidase 260 U/L (5-85) H Aspartate Amino Transf (AST/SGOT) 180 U/L (15-37) H Alanine Aminotransferase (ALT/SGPT) 483 U/L (12-78) H Alkaline Phosphatase 270 U/L (46-116) H Total Creatine Kinase 179 U/L (26-308) C-Reactive Protein, Quantitative 29.6 mg/dL (0.00-0.90) H Total Protein 5.7 G/DL (6.4-8.2) L Albumin 2.3 G/DL (3.4-5.0) L Globulin 3.4 g/dL Albumin/Globulin Ratio 0.7 (1.0-2.7) L Triglycerides Level 129 MG/DL (30-150) Cholesterol Level 141 MG/DL (< 200) LDL Cholesterol 62 mg/dL (<100) HDL Cholesterol 44 MG/DL (40-60) Cholesterol/HDL Ratio 3.2 (3.3-4.4) L Vitamin B12 Level 531 PG/ML (193-986) Folate 24.6 NG/ML (8.6-58.9) Height (Feet): 5 Height (Inches): 1.00 Weight (Pounds): 150 Medications Current Medications Medications (Trade) Dose Ordered Sig/Jose Route PRN Reason Start Time Stop Time Status Last Admin Dose Admin Acetaminophen (Tylenol) 650 mg Q4H PRN ORAL fever 04/17/19 16:15 05/17/19 16:14 04/18/19 03:13 Albuterol/ Ipratropium (Albuterol/ Ipratropium) 3 ml Q4H PRN HHN Shortness of Breath 04/17/19 16:15 04/22/19 16:14 Amlodipine Besylate (Norvasc) 2.5 mg BID ORAL 04/18/19 18:00 05/18/19 17:59 Apixaban (Eliquis) 5 mg EVERY OTHER DAY ORAL 04/20/19 09:00 05/20/19 08:59 Carvedilol (Coreg) 6.25 mg EVERY 12 HOURS ORAL 04/17/19 21:00 05/17/19 20:59 04/18/19 09:31 Cefepime HCl 2 gm/ Dextrose 110 ml @ 220 mls/hr Q24H IV 04/18/19 15:00 04/25/19 14:59 Clonidine HCl (Catapres tab) 0.2 mg Q4H PRN ORAL systolic blood pressure >145 04/18/19 11:45 05/18/19 11:44 Dextrose (Dextrose 50%) 25 ml Q30M PRN IV Hypoglycemia 04/17/19 16:15 05/17/19 16:14 Dextrose (Dextrose 50%) 50 ml Q30M PRN IV Hypoglycemia 04/17/19 16:15 05/17/19 16:14 Diltiazem HCl (Cardizem) 60 mg DAILY ORAL 04/18/19 09:00 05/18/19 08:59 04/18/19 09:30 Folic Acid (Folate) 1 mg DAILY ORAL 04/19/19 09:00 05/19/19 08:59 Furosemide (Lasix) 20 mg DAILY ORAL 04/19/19 09:00 05/19/19 08:59 Insulin Aspart (NovoLOG) BEFORE MEALS AND HS SUBQ 04/17/19 16:30 05/17/19 16:29 04/18/19 12:31 Multivitamins (Multivitamins) 1 tab DAILY ORAL 04/19/19 09:00 05/19/19 08:59 Nitroglycerin (Ntg) 0.4 mg Q5M PRN SL Prn Chest Pain 04/17/19 16:15 05/17/19 16:14 Ondansetron HCl (Zofran) 4 mg Q6H PRN IVP Nausea & Vomiting 04/17/19 16:15 05/17/19 16:14 Pantoprazole (Protonix) 40 mg DAILY ORAL 04/19/19 09:00 05/19/19 08:59 Polyethylene Glycol (Miralax) 17 gm DAILYPRN PRN ORAL Constipation 04/17/19 16:15 05/17/19 16:14 Tacrolimus (Prograf) 0.5 mg BID ORAL 04/18/19 11:45 05/18/19 11:44 04/18/19 13:58 Temazepam (Restoril) 15 mg HSPRN PRN ORAL Insomnia 04/17/19 16:15 04/24/19 16:14 Assessment/Plan Status: stable Assessment/Plan: ASSESSMENT 1. Fever most likely due to underlying UTI Patient is s/p Kidney transplant and will cover with Vancomycin and Cefepime pending culture results Clinically, she is improving today. Encourage ambulation and PO intake. IVF will be continued 2. Abnormal LFT's transaminitis Gradual improvement noted since admission Trend LFT's Consider RUQ if LFT do not improve more. Etiology likely due to hepatic congestion, ALI, vs medication related. Avoid APAP and hepatotoxic agents. 3. S/p Kidney transplant Continue Tracolimus and pending patient to bring her own Myfortic which is non formulary at [facility] [place] 4. Hypomagnesemia 1.6 Replete and monitor 5. Iron deficiency anemia Transferrin sat 12 %, Iron 14 Will recommend PO iron and outpatient follow up Hb is stable. 6. Elevated lactate 2.2 Resolved and today is 1.3 7. Diabetes Mellitus Continue KONRAD HbA1c 8. FULL CODE DVT ppx and GI ppx Ck Chilel MD Apr 18, 2019 14:24
[2019-04-18 14:26] LABS: FERRITIN > 2000 NG/ML (8-388)
[2019-04-18] MEDS: Cefepime HCl 2 GM in D5W 110 ML IV SCH (15:26)
[2019-04-18 16:00] VITALS: BP 132/80
[2019-04-18 16:46] LABS: ALANINE AMINOTRANSFERASE 400 U/L (12-78); ALBUMIN 2.4 G/DL (3.4-5.0); ALKALINE PHOSPHATASE 291 U/L (46-116); ASPARTATE AMINO TRANSFERASE 106 U/L (15-37); BILIRUBIN,DIRECT 0.2 MG/DL (0.0-0.3); BILIRUBIN,TOTAL 0.5 MG/DL (0.2-1.0)
[2019-04-18] MEDS: Ferrous Gluconate 324 MG TAB ORAL SCH (18:28)
[2019-04-18] MEDS ORDERED: PROGRAF0.5 MG PO (19:00)
[2019-04-18] MEDS ORDERED: TACROLIMUS1 MG PO (19:03)
[2019-04-18 20:59] VITALS: BP 145/60
--- NOTE | 2019-04-18 21:00 | Consultation ---
DATE OF CONSULTATION: 04/18/2019 INFECTIOUS DISEASE CONSULTATION CONSULTING PHYSICIAN: Carl Dutton M.D. REFERRING PHYSICIAN: Scotty Cohen M.D. REASON FOR CONSULTATION: Evaluation of the patient for sepsis, UTI, and antibiotic management. HISTORY OF PRESENT ILLNESS: The patient is a 63-year-old female with multiple medical problems, who was admitted to this medical center for fever x2 days. The patient has been complaining of lower abdominal pain. The patient was admitted with the impression of urinary tract infection. Infectious Disease consultation has been requested for further evaluation of the patient's antibiotic management. PAST MEDICAL HISTORY: Significant for, 1. Diabetes. 2. History of end-stage renal disease, on hemodialysis. 3. Hyperlipidemia. 4. Hypertension. MEDICATIONS: IV cefepime and vancomycin. ALLERGIES: No known drug allergies. SOCIAL HISTORY: The patient has no history of alcohol or drug abuse. FAMILY HISTORY: Not contributing. PHYSICAL EXAMINATION: VITAL SIGNS: Temperature 100.3, pulse 86, respiratory rate 18, blood pressure , and T-max 102.4. HEENT: No pale conjunctivae. No icterus. NECK: No lymphadenopathy. CHEST: Coarse breathing sounds. HEART: S1, S2. ABDOMEN: Soft. The patient has mild right upper quadrant abdominal tenderness. EXTREMITIES: No cyanosis. NEUROLOGIC: Awake. LABORATORY DATA: White blood cells 12, hemoglobin 10.7, and platelets 153,000. UA showed 20 to 30 white blood cells. BUN 25 and creatinine 1.1. AST, ALT, and alkaline phosphatase are unremarkable. Urine culture more than 100,000 gram-negative rods. Ultrasound of the abdomen with post cholecystectomy. CT of the abdomen, hydronephrosis of transplanted kidney, . ASSESSMENT: The patient is a 63-year-old female with, 1. Fever. 2. Leukocytosis. 3. Pyelonephritis (transplanted kidney). 4. Rule out influenza. PLAN: 1. We will continue the patient on IV cefepime, hold vancomycin. 2. Monitor CBC and BMP. 3. Monitor cultures (blood, urine, sputum). 4. Monitor liver function test. 5. Hepatitis panel. 6. Monitor cultures. 7. Based on the patient's clinical course and labs, we will do further recommendations. Carl Dutton M.D. DR: CHASITY JOB#: [id number] CC:
[2019-04-18] MEDS: MYFORTIC 180 MG ORAL SCH (21:42)
--- NOTE | 2019-04-18 21:45 | CDS Physician Query ---
Clarification is required for compliance, coding accuracy, and to reflect severity of illness for this patient Dear Dr. Chilel Date: 04/18/19 CDS Name: Trish Lerner "Urosepsis" is documented by Dr. Cohen in his consult note. On admission: WBC: 13.5 Lactic acid: 2.2 Temperature: 102.4 HR: 90 RR: 20 Rx: IV Cefepime Please clarify the diagnosis: [ ] Urinary Tract Infection (UTI) only [ x ] Sepsis due to UTI [ ] Other [ ] Clinically Undetermined Present on Admission: [ ] Yes [ ] No [ ] Clinically Undetermined Physician signature Date Please also document in your Progress Notes and/or Discharge Summary and indicate if the condition was present on admission. PATRICIAD
[2019-04-19] VITALS: BP 112/44
[2019-04-19 04:00] VITALS: BP 122/45
[2019-04-19] MEDS: NovoLOG Insulin Flexpen SUBQ SCH ×4 (06:23→21:22)
[2019-04-19 07:19] LABS: EOSINOPHILS % (AUTO) 1.7 % (0.0-3.0); HEMATOCRIT 30.5 % (37.0-47.0); HEMOGLOBIN 10.1 G/DL (12.0-16.0); LYMPHOCYTES % (AUTO) 12.3 % (20.0-45.0); MEAN CORPUSCULAR VOLUME 87 FL (80-99); MONOCYTES % (AUTO) 10.4 % (1.0-10.0); NEUTROPHILS % (AUTO) 74.5 % (45.0-75.0); PLATELET COUNT 163 K/UL (150-450); RED BLOOD COUNT 3.51 M/UL (4.20-5.40); RED CELL DISTRIBUTION WIDTH 12.4 % (11.6-14.8); WHITE BLOOD COUNT 7.8 K/UL (4.8-10.8)
[2019-04-19 07:43] LABS: ALANINE AMINOTRANSFERASE 295 U/L (12-78); ALBUMIN 2.3 G/DL (3.4-5.0); ALBUMIN/GLOBULIN RATIO 0.7 (1.0-2.7); ALKALINE PHOSPHATASE 244 U/L (46-116); ANION GAP 8 mmol/L (5-15); ASPARTATE AMINO TRANSFERASE 57 U/L (15-37); BILIRUBIN,TOTAL 0.5 MG/DL (0.2-1.0); BLOOD UREA NITROGEN 21 mg/dL (7-18); CALCIUM 9.1 MG/DL (8.5-10.1); CARBON DIOXIDE 26 MMOL/L (21-32); CHLORIDE 103 MMOL/L (98-107); CREATININE 1.1 MG/DL (0.55-1.30); PHOSPHORUS 2.4 MG/DL (2.5-4.9); POTASSIUM 3.6 MMOL/L (3.5-5.1); SODIUM 137 MMOL/L (136-145)
[2019-04-19 08:00] VITALS: BP 124/56
--- NOTE | 2019-04-19 08:01 | Pulmonology Progress Note ---
Assessment/Plan Assessment/Plan ASSESSMENT Sepsis with GN bacteremia, probably due to UTI, UTI with Klebsiella Transaminitis History of kidney transplant Hypomagnesemia Anemia Hypertension Diabetes mellitus PLAN OF CARE MS floor abx as per ID BCX + GNR UCX+Klebsiella, fup with final cx influenza screen negative continue Tacrolimus, Myfortic( Celcept) and prednisone monitor BS, apparently DM due tp prednisone, EtT8a-5.5, BS stable diabetic diet trend LFT -trending down hepatitis panel negative check abdominal ultrasound monitor renal parameters, lytes correct lytes as needed , avoid nephrotoxic's- remain stable BP management with CCB, BB , Lasix and clonidine prn for BP spikes DVT prophylaxis O2 HHN PRN GI prophylaxis monitor H&H with goal to keep hemoglobin above 7; ferritin-high; hold iron for now case discussed and evaluated by supervising physician Subjective Allergies: Coded Allergies: No Known Allergies (Unverified , 01/24/18) Subjective leuk resolved, remains afebrile no signs of rep distress BCX came back + for GNR Objective Last 24 Hour Vital Signs Date Time Temp Pulse Resp B/P (MAP) Pulse Ox O2 Delivery O2 Flow Rate FiO2 04/19/19 04:00 97.6 60 21 122/45 (70) 98 04/19/19 01:15 98.3 04/19/19 01:15 92.3 04/19/19 00:00 99.9 66 20 112/44 (66) 97 04/18/19 21:31 81 145/60 04/18/19 21:00 Room Air 04/18/19 20:59 101.0 81 21 145/60 (88) 96 04/18/19 18:28 75 132/80 04/18/19 16:00 99.8 75 18 132/80 (97) 94 04/18/19 12:04 97.9 68 18 112/78 (89) 98 04/18/19 09:31 66 122/77 04/18/19 09:30 66 122/77 04/18/19 09:00 Room Air 04/18/19 08:00 97.9 66 18 122/77 (92) 95 Intake and Output 04/18/19 04/19/19 19:00 07:00 Intake Total 510 ml 400 ml Balance 510 ml 400 ml Intake Oral 400 ml 400 ml IV Total 110 ml # Voids 1 6 # Bowel Movements 1 General Appearance: no acute distress, other - Sudanese speaking female HEENT: normocephalic, atraumatic, anicteric, mucous membranes moist Respiratory/Chest: lungs clear, no respiratory distress, no accessory muscle use Cardiovascular: normal rate, regular rhythm Abdomen: normal bowel sounds, soft, non tender Extremities: no edema, pedal pulses normal Skin: no rash Neurologic/Psychiatric: alert, oriented x 3, responsive Musculoskeletal: atrophy - BLE Microbiology Date/Time Source Procedure Growth Status 04/17/19 12:49 Blood Blood Culture - Preliminary NO GROWTH AFTER 24 HOURS Resulted 04/17/19 12:39 Blood Blood Culture - Preliminary Gram Negative Mike Resulted 04/19/19 02:59 Nasopharynx - Final Complete 04/19/19 02:59 Nasopharynx - Final Complete 04/17/19 12:20 Nasal Nares - Final Complete 04/17/19 12:20 Nasal Nares - Final Complete 04/17/19 13:35 Urine,Clean Catch Urine Culture - Final Klebsiella Pneumoniae Complete Laboratory Tests 04/18/19 16:00: Total Bilirubin 0.5, Direct Bilirubin 0.2, Aspartate Amino Transf (AST/SGOT) 106H, Alanine Aminotransferase (ALT/SGPT) 400H, Alkaline Phosphatase 291H, Total Protein 6.0L, Albumin 2.4L, Hepatitis A IgM Antibody [Pending], Hepatitis B Surface Antigen [Pending], Hepatitis B Core IgM Antibody [Pending], Hepatitis C Antibody [Pending] 04/19/19 04:45: Total Bilirubin 0.5, Aspartate Amino Transf (AST/SGOT) 57H, Alanine Aminotransferase (ALT/SGPT) 295H, Alkaline Phosphatase 244H, Total Protein 5.7L , Albumin 2.3L, White Blood Count 7.8, Red Blood Count 3.51L, Hemoglobin 10.1L, Hematocrit 30.5L, Mean Corpuscular Volume 87, Mean Corpuscular Hemoglobin 28.6, Mean Corpuscular Hemoglobin Concent 33.0, Red Cell Distribution Width 12.4, Platelet Count 163, Mean Platelet Volume 7.5, Neutrophils (%) (Auto) 74.5, Lymphocytes (%) (Auto) 12.3L, Monocytes (%) (Auto) 10.4H, Eosinophils (%) (Auto ) 1.7, Basophils (%) (Auto) 1.0, Erythrocyte Sedimentation Rate [Pending], Sodium Level 137, Potassium Level 3.6, Chloride Level 103, Carbon Dioxide Level 26, Anion Gap 8, Blood Urea Nitrogen 21H, Creatinine 1.1, Estimat Glomerular Filtration Rate 49.9, Glucose Level 107H, Hemoglobin A1c 8.5H, Calcium Level 9.1 , Phosphorus Level 2.4L, Magnesium Level 1.8, C-Reactive Protein, Quantitative [ Pending], Globulin 3.4, Albumin/Globulin Ratio 0.7L Current Medications Medications (Trade) Dose Ordered Sig/Jose Route PRN Reason Start Time Stop Time Status Last Admin Dose Admin Acetaminophen (Tylenol) 650 mg EVERY 6 HOURS ORAL 04/19/19 00:30 04/19/19 12:01 04/19/19 00:45 Albuterol/ Ipratropium (Albuterol/ Ipratropium) 3 ml Q4H PRN HHN Shortness of Breath 04/17/19 16:15 04/22/19 16:14 Amlodipine Besylate (Norvasc) 2.5 mg BID ORAL 04/18/19 18:00 05/18/19 17:59 04/18/19 18:28 Apixaban (Eliquis) 5 mg EVERY OTHER DAY ORAL 04/20/19 09:00 05/20/19 08:59 Carvedilol (Coreg) 6.25 mg EVERY 12 HOURS ORAL 04/17/19 21:00 05/17/19 20:59 04/18/19 21:31 Cefepime HCl 2 gm/ Dextrose 110 ml @ 220 mls/hr Q24H IV 04/18/19 15:00 04/25/19 14:59 04/18/19 15:26 Clonidine HCl (Catapres tab) 0.2 mg Q4H PRN ORAL systolic blood pressure >145 04/18/19 11:45 05/18/19 11:44 Dextrose (Dextrose 50%) 25 ml Q30M PRN IV Hypoglycemia 04/17/19 16:15 05/17/19 16:14 Dextrose (Dextrose 50%) 50 ml Q30M PRN IV Hypoglycemia 04/17/19 16:15 05/17/19 16:14 Diltiazem HCl (Cardizem) 60 mg DAILY ORAL 04/18/19 09:00 05/18/19 08:59 04/18/19 09:30 Ferrous Gluconate (Fergon) 324 mg THREE TIMES A DAY ORAL 04/18/19 18:00 05/18/19 17:59 04/18/19 18:28 Folic Acid (Folate) 1 mg DAILY ORAL 04/19/19 09:00 05/19/19 08:59 Furosemide (Lasix) 20 mg DAILY ORAL 04/19/19 09:00 05/19/19 08:59 Insulin Aspart (NovoLOG) BEFORE MEALS AND HS SUBQ 04/17/19 16:30 05/17/19 16:29 04/18/19 21:38 Multivitamins (Multivitamins) 1 tab DAILY ORAL 04/19/19 09:00 05/19/19 08:59 Nitroglycerin (Ntg) 0.4 mg Q5M PRN SL Prn Chest Pain 04/17/19 16:15 05/17/19 16:14 Ondansetron HCl (Zofran) 4 mg Q6H PRN IVP Nausea & Vomiting 04/17/19 16:15 05/17/19 16:14 Pantoprazole (Protonix) 40 mg DAILY ORAL 04/19/19 09:00 05/19/19 08:59 Patient Own Medication (Patient's Own Med) 3 ea Q12HR ORAL 04/18/19 21:00 05/18/19 20:59 04/18/19 21:42 Polyethylene Glycol (Miralax) 17 gm DAILYPRN PRN ORAL Constipation 04/17/19 16:15 05/17/19 16:14 Prednisone (predniSONE) 2.5 mg DAILY ORAL 04/19/19 09:00 05/19/19 08:59 Tacrolimus (Prograf) 1.5 mg Q12HR ORAL 04/19/19 09:00 05/19/19 08:59 Temazepam (Restoril) 15 mg HSPRN PRN ORAL Insomnia 04/17/19 16:15 04/24/19 16:14 Ingrid Tello NP Apr 19, 2019 08:01
--- NOTE | 2019-04-19 09:54 | Infectious Diseases Prog Note ---
Assessment/Plan Assessment/Plan ASSESSMENT: The patient is a 63-year-old female with, Fever, improving Leukocytosis, sp Pyelonephritis (transplanted kidney) - UCx L Kleb Bacteremia - Bc : GNR Transaminitis, improving Diabetes. History of end-stage renal disease, on hemodialysis. Hyperlipidemia. Hypertension. PLAN: continue the patient on IV cefepime # 2 Monitor CBC and BMP Monitor cultures (blood, urine, sputum). Monitor liver function test. Hepatitis panel. Monitor cultures. Subjective Allergies: Coded Allergies: No Known Allergies (Unverified , 01/24/18) Subjective fever and WBC improving Objective Vital Signs Last 24 Hour Vital Signs Date Time Temp Pulse Resp B/P (MAP) Pulse Ox O2 Delivery O2 Flow Rate FiO2 04/19/19 08:00 97.8 72 20 124/56 (78) 98 04/19/19 04:00 97.6 60 21 122/45 (70) 98 04/19/19 01:15 98.3 04/19/19 01:15 92.3 04/19/19 00:00 99.9 66 20 112/44 (66) 97 04/18/19 21:31 81 145/60 04/18/19 21:00 Room Air 04/18/19 20:59 101.0 81 21 145/60 (88) 96 04/18/19 18:28 75 132/80 04/18/19 16:00 99.8 75 18 132/80 (97) 94 04/18/19 12:04 97.9 68 18 112/78 (89) 98 Height (Feet): 5 Height (Inches): 1.00 Weight (Pounds): 150 HEENT: anicteric Respiratory/Chest: normal breath sounds Cardiovascular: normal rate Abdomen: soft, non tender Microbiology Date/Time Source Procedure Growth Status 04/17/19 12:49 Blood Blood Culture - Preliminary NO GROWTH AFTER 24 HOURS Resulted 04/17/19 12:39 Blood Blood Culture - Preliminary Gram Negative Mike Resulted 04/19/19 02:59 Nasopharynx - Final Complete 04/19/19 02:59 Nasopharynx - Final Complete 04/17/19 12:20 Nasal Nares - Final Complete 04/17/19 12:20 Nasal Nares - Final Complete 04/17/19 13:35 Urine,Clean Catch Urine Culture - Final Klebsiella Pneumoniae Complete Laboratory Tests Test 04/18/19 16:00 04/19/19 04:45 Total Bilirubin 0.5 MG/DL (0.2-1.0) 0.5 MG/DL (0.2-1.0) Direct Bilirubin 0.2 MG/DL (0.0-0.3) Aspartate Amino Transf (AST/SGOT) 106 U/L (15-37) H 57 U/L (15-37) H Alanine Aminotransferase (ALT/SGPT) 400 U/L (12-78) H 295 U/L (12-78) H Alkaline Phosphatase 291 U/L (46-116) H 244 U/L (46-116) H Total Protein 6.0 G/DL (6.4-8.2) L 5.7 G/DL (6.4-8.2) L Albumin 2.4 G/DL (3.4-5.0) L 2.3 G/DL (3.4-5.0) L Hepatitis A IgM Antibody Pending Hepatitis B Surface Antigen Pending Hepatitis B Core IgM Antibody Pending Hepatitis C Antibody Pending White Blood Count 7.8 K/UL (4.8-10.8) Red Blood Count 3.51 M/UL (4.20-5.40) L Hemoglobin 10.1 G/DL (12.0-16.0) L Hematocrit 30.5 % (37.0-47.0) L Mean Corpuscular Volume 87 FL (80-99) Mean Corpuscular Hemoglobin 28.6 PG (27.0-31.0) Mean Corpuscular Hemoglobin Concent 33.0 G/DL (32.0-36.0) Red Cell Distribution Width 12.4 % (11.6-14.8) Platelet Count 163 K/UL (150-450) Mean Platelet Volume 7.5 FL (6.5-10.1) Neutrophils (%) (Auto) 74.5 % (45.0-75.0) Lymphocytes (%) (Auto) 12.3 % (20.0-45.0) L Monocytes (%) (Auto) 10.4 % (1.0-10.0) H Eosinophils (%) (Auto) 1.7 % (0.0-3.0) Basophils (%) (Auto) 1.0 % (0.0-2.0) Erythrocyte Sedimentation Rate 60 MM/HR (0-30) H Sodium Level 137 MMOL/L (136-145) Potassium Level 3.6 MMOL/L (3.5-5.1) Chloride Level 103 MMOL/L (98-107) Carbon Dioxide Level 26 MMOL/L (21-32) Anion Gap 8 mmol/L (5-15) Blood Urea Nitrogen 21 mg/dL (7-18) H Creatinine 1.1 MG/DL (0.55-1.30) Estimat Glomerular Filtration Rate 49.9 mL/min (>60) Glucose Level 107 MG/DL (74-106) H Hemoglobin A1c 8.5 % (4.3-6.0) H Calcium Level 9.1 MG/DL (8.5-10.1) Phosphorus Level 2.4 MG/DL (2.5-4.9) L Magnesium Level 1.8 MG/DL (1.8-2.4) C-Reactive Protein, Quantitative 21.8 mg/dL (0.00-0.90) H Globulin 3.4 g/dL Albumin/Globulin Ratio 0.7 (1.0-2.7) L Current Medications Medications (Trade) Dose Ordered Sig/Jose Route PRN Reason Start Time Stop Time Status Last Admin Dose Admin Acetaminophen (Tylenol) 650 mg EVERY 6 HOURS ORAL 04/19/19 00:30 04/19/19 12:01 04/19/19 00:45 Albuterol/ Ipratropium (Albuterol/ Ipratropium) 3 ml Q4H PRN HHN Shortness of Breath 04/17/19 16:15 04/22/19 16:14 Amlodipine Besylate (Norvasc) 2.5 mg BID ORAL 04/18/19 18:00 05/18/19 17:59 04/18/19 18:28 Apixaban (Eliquis) 5 mg EVERY OTHER DAY ORAL 04/20/19 09:00 05/20/19 08:59 Carvedilol (Coreg) 6.25 mg EVERY 12 HOURS ORAL 04/17/19 21:00 05/17/19 20:59 04/18/19 21:31 Cefepime HCl 2 gm/ Dextrose 110 ml @ 220 mls/hr Q24H IV 04/18/19 15:00 04/25/19 14:59 04/18/19 15:26 Clonidine HCl (Catapres tab) 0.2 mg Q4H PRN ORAL systolic blood pressure >145 04/18/19 11:45 05/18/19 11:44 Dextrose (Dextrose 50%) 25 ml Q30M PRN IV Hypoglycemia 04/17/19 16:15 05/17/19 16:14 Dextrose (Dextrose 50%) 50 ml Q30M PRN IV Hypoglycemia 04/17/19 16:15 05/17/19 16:14 Diltiazem HCl (Cardizem) 60 mg DAILY ORAL 04/18/19 09:00 05/18/19 08:59 04/18/19 09:30 Ferrous Gluconate (Fergon) 324 mg THREE TIMES A DAY ORAL 04/18/19 18:00 05/18/19 17:59 04/18/19 18:28 Folic Acid (Folate) 1 mg DAILY ORAL 04/19/19 09:00 05/19/19 08:59 Furosemide (Lasix) 20 mg DAILY ORAL 04/19/19 09:00 05/19/19 08:59 Insulin Aspart (NovoLOG) BEFORE MEALS AND HS SUBQ 04/17/19 16:30 05/17/19 16:29 04/18/19 21:38 Multivitamins (Multivitamins) 1 tab DAILY ORAL 04/19/19 09:00 05/19/19 08:59 Nitroglycerin (Ntg) 0.4 mg Q5M PRN SL Prn Chest Pain 04/17/19 16:15 05/17/19 16:14 Ondansetron HCl (Zofran) 4 mg Q6H PRN IVP Nausea & Vomiting 04/17/19 16:15 05/17/19 16:14 Pantoprazole (Protonix) 40 mg DAILY ORAL 04/19/19 09:00 05/19/19 08:59 Patient Own Medication (Patient's Own Med) 3 ea Q12HR ORAL 04/18/19 21:00 05/18/19 20:59 04/18/19 21:42 Polyethylene Glycol (Miralax) 17 gm DAILYPRN PRN ORAL Constipation 04/17/19 16:15 05/17/19 16:14 Prednisone (predniSONE) 2.5 mg DAILY ORAL 04/19/19 09:00 05/19/19 08:59 Tacrolimus (Prograf) 1.5 mg Q12HR ORAL 04/19/19 09:00 05/19/19 08:59 Temazepam (Restoril) 15 mg HSPRN PRN ORAL Insomnia 04/17/19 16:15 04/24/19 16:14 Carl Dutton MD Apr 19, 2019 09:54
[2019-04-19] MEDS: Carvedilol 6.25mg Tab ORAL SCH ×2 (10:26→21:23)
[2019-04-19] MEDS: MYFORTIC 180 MG ORAL SCH ×2 (10:28→21:24)
[2019-04-19] MEDS: Ferrous Gluconate 324 MG TAB ORAL SCH ×3 (10:28→18:06)
[2019-04-19] MEDS: dilTIAZem HCl 60mg tab ORAL SCH (10:28)
[2019-04-19] MEDS ORDERED: Tubing IV Secondary IV ONE (11:59)
[2019-04-19] MEDS ORDERED: NS 500ML ONE (11:59)
[2019-04-19 12:00] VITALS: BP 156/63
--- NOTE | 2019-04-19 14:20 | General Progress Note ---
Assessment/Plan Status: stable Assessment/Plan: ASSESSMENT 1.Sepsis due to UTI Patient is s/p Kidney transplant and will cover with Cefepime S to Klebsiella. Blood Culture final result is pending. Clinically, she is improving today. WBC improved to 7 thousand. Encourage ambulation and PO intake. IVF will be continued Discussed with Dr. Dutton. 2. Abnormal LFT's transaminitis Gradual improvement noted since admission Trend LFT's Consider RUQ if LFT do not improve more. Etiology likely due to hepatic congestion, ALI, vs medication related. Avoid APAP and hepatotoxic agents. 3. S/p Kidney transplant Continue Tracolimus and pending patient to bring her own Myfortic which is non formulary at [facility] [place] 4. Hypomagnesemia improved. Replete and monitor 5. Iron deficiency anemia Transferrin sat 12 %, Iron 14 Will recommend PO iron and outpatient follow up Hb is stable. 6. Elevated lactate resolved. 7. Diabetes Mellitus Continue KONRAD HbA1c 8. FULL CODE DVT ppx and GI ppx 9. Dispo: Possible dc in AM Subjective Date patient seen: Apr 19, 2019 Time patient seen: 13:00 ROS Limited/Unobtainable: No Genitourinary: Reports: flank pain Allergies: Coded Allergies: No Known Allergies (Unverified , 01/24/18) All Systems: reviewed and negative except above Subjective Feels better, ambulatory. Moderate flank pain is still present. Objective Last 24 Hour Vital Signs Date Time Temp Pulse Resp B/P (MAP) Pulse Ox O2 Delivery O2 Flow Rate FiO2 04/19/19 12:00 98.1 71 18 156/63 (94) 97 04/19/19 10:28 72 124/56 04/19/19 10:27 72 124/56 04/19/19 10:26 72 124/56 04/19/19 09:00 Room Air 04/19/19 08:00 97.8 72 20 124/56 (78) 98 04/19/19 04:00 97.6 60 21 122/45 (70) 98 04/19/19 01:15 98.3 04/19/19 01:15 92.3 04/19/19 00:00 99.9 66 20 112/44 (66) 97 04/18/19 21:31 81 145/60 04/18/19 21:00 Room Air 04/18/19 20:59 101.0 81 21 145/60 (88) 96 04/18/19 18:28 75 132/80 04/18/19 16:00 99.8 75 18 132/80 (97) 94 Intake and Output 04/18/19 04/19/19 19:00 07:00 Intake Total 510 ml 400 ml Balance 510 ml 400 ml Intake Oral 400 ml 400 ml IV Total 110 ml # Voids 1 6 # Bowel Movements 1 Laboratory Tests 04/18/19 16:00: Total Bilirubin 0.5, Direct Bilirubin 0.2, Aspartate Amino Transf (AST/SGOT) 106H, Alanine Aminotransferase (ALT/SGPT) 400H, Alkaline Phosphatase 291H, Total Protein 6.0L, Albumin 2.4L, Hepatitis A IgM Antibody Negative, Hepatitis B Surface Antigen Negative, Hepatitis B Core IgM Antibody Negative, Hepatitis C Antibody <0.1 04/19/19 04:45: Total Bilirubin 0.5, Aspartate Amino Transf (AST/SGOT) 57H, Alanine Aminotransferase (ALT/SGPT) 295H, Alkaline Phosphatase 244H, Total Protein 5.7L , Albumin 2.3L, White Blood Count 7.8, Red Blood Count 3.51L, Hemoglobin 10.1L, Hematocrit 30.5L, Mean Corpuscular Volume 87, Mean Corpuscular Hemoglobin 28.6, Mean Corpuscular Hemoglobin Concent 33.0, Red Cell Distribution Width 12.4, Platelet Count 163, Mean Platelet Volume 7.5, Neutrophils (%) (Auto) 74.5, Lymphocytes (%) (Auto) 12.3L, Monocytes (%) (Auto) 10.4H, Eosinophils (%) (Auto ) 1.7, Basophils (%) (Auto) 1.0, Erythrocyte Sedimentation Rate 60H, Sodium Level 137, Potassium Level 3.6, Chloride Level 103, Carbon Dioxide Level 26, Anion Gap 8, Blood Urea Nitrogen 21H, Creatinine 1.1, Estimat Glomerular Filtration Rate 49.9, Glucose Level 107H, Hemoglobin A1c 8.5H, Calcium Level 9.1 , Phosphorus Level 2.4L, Magnesium Level 1.8, C-Reactive Protein, Quantitative 21.8H, Globulin 3.4, Albumin/Globulin Ratio 0.7L Height (Feet): 5 Height (Inches): 1.00 Weight (Pounds): 150 General Appearance: WD/WN EENT: PERRL/EOMI Cardiovascular: normal rate Respiratory/Chest: lungs clear Abdomen: non tender Pelvis: normal rectal exam Neurologic: malt loader II-XII grossly normal Ck Chilel MD Apr 19, 2019 14:20
[2019-04-19] MEDS: Cefepime HCl 2 GM in D5W 110 ML IV SCH (15:27)
[2019-04-19 16:00] VITALS: BP 132/50
[2019-04-19 20:00] VITALS: BP 124/85
[2019-04-20] VITALS: BP 122/76
[2019-04-20 04:00] VITALS: BP 110/62
[2019-04-20] MEDS: NovoLOG Insulin Flexpen SUBQ SCH ×3 (06:30→17:29)
[2019-04-20 08:00] VITALS: BP 134/59
[2019-04-20 08:34] LABS: BASOPHILS % (AUTO) 1.2 % (0.0-2.0); EOSINOPHILS % (AUTO) 1.6 % (0.0-3.0); HEMATOCRIT 31.1 % (37.0-47.0); HEMOGLOBIN 10.2 G/DL (12.0-16.0); LYMPHOCYTES % (AUTO) 9.9 % (20.0-45.0); MEAN CORPUSCULAR VOLUME 86 FL (80-99); MONOCYTES % (AUTO) 19.2 % (1.0-10.0); NEUTROPHILS % (AUTO) 68.1 % (45.0-75.0); PLATELET COUNT 190 K/UL (150-450); RED CELL DISTRIBUTION WIDTH 12.7 % (11.6-14.8); WHITE BLOOD COUNT 6.8 K/UL (4.8-10.8)
[2019-04-20] MEDS ORDERED: Eliquis 5mg tablet ORAL SCH (09:00)
[2019-04-20 09:06] LABS: ALANINE AMINOTRANSFERASE 211 U/L (12-78); ALBUMIN 2.4 G/DL (3.4-5.0); ALBUMIN/GLOBULIN RATIO 0.6 (1.0-2.7); ALKALINE PHOSPHATASE 248 U/L (46-116); ANION GAP 9 mmol/L (5-15); ASPARTATE AMINO TRANSFERASE 30 U/L (15-37); BILIRUBIN,TOTAL 0.4 MG/DL (0.2-1.0); BLOOD UREA NITROGEN 21 mg/dL (7-18); CALCIUM 9.2 MG/DL (8.5-10.1); CARBON DIOXIDE 27 MMOL/L (21-32); CHLORIDE 102 MMOL/L (98-107); CREATININE 0.9 MG/DL (0.55-1.30); POTASSIUM 3.7 MMOL/L (3.5-5.1); SODIUM 138 MMOL/L (136-145)
[2019-04-20] MEDS: Carvedilol 6.25mg Tab ORAL SCH (09:08)
[2019-04-20] MEDS: MYFORTIC 180 MG ORAL SCH (09:08)
[2019-04-20] MEDS: dilTIAZem HCl 60mg tab ORAL SCH (09:09)
[2019-04-20] MEDS: Ferrous Gluconate 324 MG TAB ORAL SCH ×3 (09:10→18:50)
--- NOTE | 2019-04-20 10:24 | Pulmonology Progress Note ---
Assessment/Plan Assessment/Plan ASSESSMENT Sepsis with Klebsiella bacteremia, due to UTI, UTI with Klebsiella Transaminitis History of kidney transplant Hypomagnesemia Anemia Hypertension Diabetes mellitus PLAN OF CARE MS floor abx as per ID BCX + Klebsiella UCX+Klebsiella, influenza screen negative continue Tacrolimus, Myfortic( Celcept) and prednisone monitor BS, apparently DM due tp prednisone, [id number], BS stable diabetic diet trend LFT -trending down hepatitis panel negative check abdominal ultrasound monitor renal parameters, lytes correct lytes as needed , avoid nephrotoxic's- remain stable BP management with CCB, BB , Lasix and clonidine prn for BP spikes DVT prophylaxis O2 HHN PRN GI prophylaxis monitor H&H with goal to keep hemoglobin above 7; ferritin-high; hold iron for now case discussed and evaluated by supervising physician Subjective Allergies: Coded Allergies: No Known Allergies (Unverified , 01/24/18) Subjective leuk resolved, remains afebrile no signs of rep distress BCX and UCX + Klebsiella Objective Last 24 Hour Vital Signs Date Time Temp Pulse Resp B/P (MAP) Pulse Ox O2 Delivery O2 Flow Rate FiO2 04/20/19 09:09 70 134/59 04/20/19 09:09 70 134/59 04/20/19 09:08 70 134/59 04/20/19 08:00 98.3 70 16 134/59 (84) 94 04/20/19 04:00 98.1 69 18 110/62 (78) 96 04/20/19 00:00 98.3 65 20 122/76 (91) 96 04/19/19 21:23 76 124/85 04/19/19 21:00 Room Air 04/19/19 20:00 98.0 76 20 124/85 (98) 97 04/19/19 18:06 68 132/50 04/19/19 16:00 98.0 68 20 132/50 (77) 95 04/19/19 12:00 98.1 71 18 156/63 (94) 97 04/19/19 10:28 72 124/56 04/19/19 10:27 72 124/56 04/19/19 10:26 72 124/56 Intake and Output 04/19/19 04/20/19 19:00 07:00 Intake Total 510 ml 100 ml Output Total 25 ml Balance 510 ml 75 ml Intake Oral 400 ml 100 ml IV Total 110 ml Output Drainage Total 25 ml # Voids 3 3 Objective General Appearance: no acute distress, Thai speaking female HEENT: normocephalic, atraumatic, anicteric, mucous membranes moist Respiratory/Chest: lungs clear, no respiratory distress, no accessory muscle use Cardiovascular: normal rate, regular rhythm Abdomen: normal bowel sounds, soft, non tender Extremities: no edema, pedal pulses normal Skin: no rash Neurologic/Psychiatric: alert, oriented x 3, responsive Musculoskeletal: atrophy - BLE Microbiology Date/Time Source Procedure Growth Status 04/17/19 12:49 Blood Blood Culture - Preliminary NO GROWTH AFTER 48 HOURS Resulted 04/17/19 12:39 Blood Blood Culture - Final Klebsiella Pneumoniae Complete 04/19/19 02:59 Nasopharynx - Final Complete 04/19/19 02:59 Nasopharynx - Final Complete 04/17/19 12:20 Nasal Nares - Final Complete 04/17/19 12:20 Nasal Nares - Final Complete 04/17/19 13:35 Urine,Clean Catch Urine Culture - Final Klebsiella Pneumoniae Complete Laboratory Tests 04/20/19 07:35: White Blood Count 6.8, Red Blood Count 3.60L, Hemoglobin 10.2L, Hematocrit 31.1L , Mean Corpuscular Volume 86, Mean Corpuscular Hemoglobin 28.4, Mean Corpuscular Hemoglobin Concent 32.9, Red Cell Distribution Width 12.7, Platelet Count 190, Mean Platelet Volume 7.3, Neutrophils (%) (Auto) 68.1, Lymphocytes (% ) (Auto) 9.9L, Monocytes (%) (Auto) 19.2H, Eosinophils (%) (Auto) 1.6, Basophils (%) (Auto) 1.2, Sodium Level 138, Potassium Level 3.7, Chloride Level 102, Carbon Dioxide Level 27, Anion Gap 9, Blood Urea Nitrogen 21H, Creatinine 0.9, Estimat Glomerular Filtration Rate > 60, Glucose Level 150H, Calcium Level 9.2, Magnesium Level 1.6L, Total Bilirubin 0.4, Aspartate Amino Transf (AST/SGOT ) 30, Alanine Aminotransferase (ALT/SGPT) 211H, Alkaline Phosphatase 248H, Total Protein 6.1L, Albumin 2.4L, Globulin 3.7, Albumin/Globulin Ratio 0.6L Current Medications Medications (Trade) Dose Ordered Sig/Jose Route PRN Reason Start Time Stop Time Status Last Admin Dose Admin Albuterol/ Ipratropium (Albuterol/ Ipratropium) 3 ml Q4H PRN HHN Shortness of Breath 04/17/19 16:15 04/22/19 16:14 Amlodipine Besylate (Norvasc) 2.5 mg BID ORAL 04/18/19 18:00 05/18/19 17:59 04/20/19 09:09 Apixaban (Eliquis) 5 mg EVERY OTHER DAY ORAL 04/20/19 09:00 05/20/19 08:59 04/20/19 09:10 Carvedilol (Coreg) 6.25 mg EVERY 12 HOURS ORAL 04/17/19 21:00 05/17/19 20:59 04/20/19 09:08 Cefepime HCl 2 gm/ Dextrose 110 ml @ 220 mls/hr Q24H IV 04/18/19 15:00 04/25/19 14:59 04/19/19 15:27 Clonidine HCl (Catapres tab) 0.2 mg Q4H PRN ORAL systolic blood pressure >145 04/18/19 11:45 05/18/19 11:44 Dextrose (Dextrose 50%) 25 ml Q30M PRN IV Hypoglycemia 04/17/19 16:15 05/17/19 16:14 Dextrose (Dextrose 50%) 50 ml Q30M PRN IV Hypoglycemia 04/17/19 16:15 05/17/19 16:14 Diltiazem HCl (Cardizem) 60 mg DAILY ORAL 04/18/19 09:00 05/18/19 08:59 04/20/19 09:09 Ferrous Gluconate (Fergon) 324 mg THREE TIMES A DAY ORAL 04/18/19 18:00 05/18/19 17:59 04/20/19 09:10 Folic Acid (Folate) 1 mg DAILY ORAL 04/19/19 09:00 05/19/19 08:59 04/20/19 09:10 Furosemide (Lasix) 20 mg DAILY ORAL 04/19/19 09:00 05/19/19 08:59 04/20/19 09:10 Insulin Aspart (NovoLOG) BEFORE MEALS AND HS SUBQ 04/17/19 16:30 05/17/19 16:29 04/19/19 21:22 Multivitamins (Multivitamins) 1 tab DAILY ORAL 04/19/19 09:00 05/19/19 08:59 04/20/19 09:09 Nitroglycerin (Ntg) 0.4 mg Q5M PRN SL Prn Chest Pain 04/17/19 16:15 05/17/19 16:14 Ondansetron HCl (Zofran) 4 mg Q6H PRN IVP Nausea & Vomiting 04/17/19 16:15 05/17/19 16:14 Pantoprazole (Protonix) 40 mg DAILY ORAL 04/19/19 09:00 05/19/19 08:59 04/20/19 09:09 Patient Own Medication (Patient's Own Med) 3 ea Q12HR ORAL 04/21/19 09:00 05/18/19 20:59 Polyethylene Glycol (Miralax) 17 gm DAILYPRN PRN ORAL Constipation 04/17/19 16:15 05/17/19 16:14 Prednisone (predniSONE) 2.5 mg DAILY ORAL 04/19/19 09:00 05/19/19 08:59 04/20/19 09:10 Tacrolimus (Prograf) 1.5 mg Q12HR ORAL 04/19/19 09:00 05/19/19 08:59 04/20/19 09:08 Temazepam (Restoril) 15 mg HSPRN PRN ORAL Insomnia 04/17/19 16:15 04/24/19 16:14 Ingrid Tello NP Apr 20, 2019 10:24
[2019-04-20 12:00] VITALS: BP 123/63
--- NOTE | 2019-04-20 13:37 | Discharge Summary ---
Discharge Summary Hospital Course Date of Admission Apr 17, 2019 at 13:40 Date of Discharge Admitting Diagnosis fever in transplant patient HPI Shabana Hernández is a 63 year old female who was admitted on Apr 17, 2019 at 13:40 for Fever In Transplant Patient Hospital Course ASSESSMENT 1.Sepsis due to UTI Patient is s/p Kidney transplant and will cover with Cefepime S to Klebsiella. Blood Culture final result is compatible with urine culture. will called Rx for Keflex x 7 days. Clinically, she is improving today. WBC improved to [address] Dutton. 2. Abnormal LFT's transaminitis Gradual improvement noted since admission Trend LFT's is progressing toward normal and US liver was normal. 3. S/p Kidney transplant Continue Tracolimus and Myfortic. 4. Hypomagnesemia improved. Replete and monitor 5. Iron deficiency anemia Transferrin sat 12 %, Iron 14 Will recommend PO iron and outpatient follow up. Rx called in to outside pharmacy. Hb is stable. 6. Elevated lactate resolved. 7. Diabetes Mellitus Continue KONRAD and Lantus HbA1c 8. FULL CODE DVT ppx and GI ppx 9. Dispo: Home Discharge Medications Continued Medications: Amlodipine Besylate (Norvasc) 2.5 Mg Tablet 2.5 MG ORAL BID for htn, TAB (This prescription has been renewed) Apixaban (Eliquis) 5 Mg Tablet 5 MG PO EVERY OTHER DAY for Anticoagulant, TAB Carvedilol* (Carvedilol*) 6.25 Mg Tablet 6.25 MG ORAL EVERY 12 HOURS, TAB (This prescription has been renewed) Clonidine HCl (Clonidine HCl) 0.2 Mg Tablet 0.2 MG PO Q4HR PRN for systolic blood pressure >145, TAB (This prescription has been renewed) Folic Acid* (Folic Acid*) 1 Mg Tablet 1 MG ORAL DAILY for SUPPLEMENT, TAB Furosemide* (Lasix*) 20 Mg Tablet 20 MG ORAL DAILY for htn, TAB (This prescription has been renewed) Insulin Aspart (Novolog) 100 Unit/1 Ml Cartridge 4 UNIT SQ AC for diabetes Do not administer if you are not going to eat a meal. Insulin Aspart (Novolog) 100 Unit/1 Ml Cartridge 0 SQ AC for diabetes (This prescription has been renewed) Sliding scale Blood sugar: 71-100: 0 units 101-150: 0 units 151-200: 1 unit 201-250: 2 units 251-300: 3 units 301-350: 4 units 351-400: 5 units >400: 6 units Insulin Glargine (Lantus) 100 Unit/1 Ml Insuln.pen 12 UNITS SUBQ DAILY for diabetes , #1 EA 0 Refills TAKE AT 900 AM Multivitamins* (Multivitamins*) 1 Each Tablet 1 TAB ORAL DAILY for supplement, TAB 0 Refills (This prescription has been renewed) Mycophenolate Sodium (Myfortic) 180 Mg Tablet. 540 MG PO BID for Renal transplant rejection, TAB Pantoprazole* (Protonix*) 40 Mg Tablet.dr 40 MG ORAL DAILY for GI prophylaxis, TAB (This prescription has been renewed) Prednisone* (Prednisone*) 2.5 Mg Tablet 2.5 MG ORAL DAILY for steroid, #10 TAB 0 Refills (This prescription has been renewed) Tacrolimus (Prograf) 0.5 Mg Capsule 1.5 MG PO BID for kidney transplant, CAP Discharge Condition Upon Discharge: stable Discharge Vital Signs Last Vital Signs Date Time Temp Pulse Resp B/P (MAP) Pulse Ox O2 Delivery O2 Flow Rate FiO2 04/20/19 09:09 70 134/59 04/20/19 08:00 98.3 16 94 04/19/19 21:00 Room Air Discharge Disposition Patient was discharged to HOME Discharge Diagnoses: (1) UTI (urinary tract infection) (2) Sepsis (3) Diabetes mellitus (4) History of hypertension (5) Urosepsis (6) ESRD (end stage renal disease) on dialysis (7) Hypertension Ck Chilel MD Apr 20, 2019 13:37
[2019-04-20 16:00] VITALS: BP 117/60
[2019-04-20] MEDS ORDERED: cefTRIAXone 1 GM in D5W 110 ML IVPB SCH (16:00)
[2019-04-20 18:50] VITALS: BP 117/60
[2019-04-21] MEDS ORDERED: MYFORTIC 180MG ORAL SCH (09:00)
== END 2019-04-20 20:30 | disposition home or self-care (01) | DRG 871 ==
LOC: EMR 12:35 → 3E 13:40 → EDBEDREQ 15:49 → 3E 17:10
DX: A41.9 Sepsis, unspecified organism (principal); N18.6 End stage renal disease; N39.0 Urinary tract infection, site not specified; Z94.0 Kidney transplant status; I12.0 Hypertensive chronic kidney disease with stage 5 chronic kidney disease or end stage renal disease; E83.42 Hypomagnesemia; D50.9 Iron deficiency anemia, unspecified; Z79.4 Long term (current) use of insulin; E11.22 Type 2 diabetes mellitus with diabetic chronic kidney disease; Z99.2 Dependence on renal dialysis; E78.5 Hyperlipidemia, unspecified; B96.1 Klebsiella pneumoniae [K. pneumoniae] as the cause of diseases classified elsewhere
CPT/HCPCS: 36415; 71045; 74176; 76700; 80053; 80061; 80076; 81003; 82550; 82607; 82728; 82746; 82962; 82977; 83036; 83540; 83550; 83605; 83735; 84100; 84550; 85007; 85025; 85610; 85651; 85730; 86140; 86705; 86709; 86710; 86803; 87040; 87086; 87181; 87340; 96361; 96365; 99285; J1815; J7030